=== PATIENT | female | born 1950 | race Caucasian/White ===

== ENCOUNTER 2022-11-10 07:25 | Outpatient (OUT) | payer MEDICARE, SELFPAY ==
--- NOTE | 2022-11-10 13:38 | XR_ITS ---
The [address] [address] Patient Name: CARLOS ABEL MRN: [id number] date: 1950 Sex: F Assigned Patient Location: [facility] Current Patient Location: [facility] Accession/Order Number: [id number] Exam Date: 11/10/2022 13:38 Report Date: 11/10/2022 15:28 At the request of: MICHEL LINN Procedure: XR foot LT min 3V EXAM: XR ankle LT min 3V, XR foot LT min 3V HISTORY: LEFT ANKLE PAIN COMPARISON: X-rays 10/20/2021 TECHNIQUE: 3 views of the ankle and 3 views of the foot. FINDINGS: Severe mid foot sag is again demonstrated. No acute fracture, dislocation, subluxation or osseous lesion. Stable medial angulation of the second, third, fourth and fifth digits. Joint spaces are unremarkable for patient's age. No visualized soft tissue edema or joint effusion. XR/XR foot LT min 3V IMPRESSION: No visualized acute irregularities Electronically authenticated by: HUY SHIRLEY Date: 11/10/2022 15:28
--- NOTE | 2022-11-10 13:39 | XR_ITS ---
The [address] [address] Patient Name: CARLOS ABEL MRN: [id number] date: 1950 Sex: F Assigned Patient Location: [facility] Current Patient Location: [facility] Accession/Order Number: [id number] Exam Date: 11/10/2022 13:39 Report Date: 11/10/2022 15:28 At the request of: MICHEL LINN Procedure: XR ankle LT min 3V EXAM: XR ankle LT min 3V, XR foot LT min 3V HISTORY: LEFT ANKLE PAIN COMPARISON: X-rays 10/20/2021 TECHNIQUE: 3 views of the ankle and 3 views of the foot. FINDINGS: Severe mid foot sag is again demonstrated. No acute fracture, dislocation, subluxation or osseous lesion. Stable medial angulation of the second, third, fourth and fifth digits. Joint spaces are unremarkable for patient's age. No visualized soft tissue edema or joint effusion. XR/XR ankle LT min 3V IMPRESSION: No visualized acute irregularities Electronically authenticated by: HUY SHIRLEY Date: 11/10/2022 15:28
== END 2022-11-10 07:26 ==
LOC: RAD 11-18 07:26
PROVIDERS: Visit Provider Physician Assistant
DX: M19.072 Primary osteoarthritis, left ankle and foot (principal)
CPT/HCPCS: 73610; 73630

== ENCOUNTER 2023-02-21 22:00 | Emergency (ER) | payer MEDICARE, SELFPAY ==
[2023-02-21 22:02] VITALS: BP 178/110; PULSE 98; RESP 16; TEMP 36.6; O2SAT 98; BMI 31.1
--- NOTE | 2023-02-21 22:31 | ED.WOUNDLAC1 ---
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 She was working with a feral cat that bit and scratched her right leg. she is not able to recall her last tetanus shot. States she is not concerned about rabies. states they are trapping these cats to neuter and release them. Denies other injury. No weakness or numbness of her leg Onset (ago): hour(s) Related Data Home Medications Medication Instructions Recorded Confirmed ibuprofen 800 mg tablet 800 mg PO DAILY 02/21/23 02/21/23 sertraline 50 mg tablet (Zoloft) 50 mg PO DAILY 02/21/23 02/21/23 Allergies Allergy/AdvReac Type Severity Reaction Status Date / Time No Known Drug Allergies Allergy Verified 02/21/23 22:06 Review of Systems ROS Status of ROS 10 or more systems reviewed and unremarkable except as noted in history and below PFSH PFS Social History Smoking status: Never smoker Exam Constitutional Vital Signs, click to edit/add: Last Vital Signs Temp 97.8 F 02/21/23 22:02 Pulse 98 H 02/21/23 22:02 Resp 16 02/21/23 22:02 BP 172/110 H 02/21/23 23:23 Pulse Ox 98 02/21/23 22:02 O2 Del Method Room Air 02/21/23 22:02 Common normals: no apparent distress, average body habitus, oriented x3, no limitations, healthy appearing and alert Eye Common normals: EOMs intact bilaterally and conjunctivae normal Respiratory Common normals: normal respiratory effort, no retractions and no use of accessory muscles Cardio Common normals: regular rate, regular rhythm, S1 normal heart sound and S2 normal heart sound Extremity Other: mutiple scratches RLE . Few bite casanova. One lesion length about 2cm. does bleed but does not pull apart Neuro Common normals: oriented x3, CN's II-XII intact bilaterally, moves all extremities, no focal motor deficits and no sensory deficits noted Psych Appearance: grossly normal Course Vital Signs Vital signs: Vital Signs Temperature 97.8 F 02/21/23 22:02 Pulse Rate 98 H 02/21/23 22:02 Respiratory Rate 16 02/21/23 22:02 Blood Pressure 178/110 H 02/21/23 22:02 Pulse Oximetry 98 02/21/23 22:02 Oxygen Delivery Method Room Air 02/21/23 22:02 Temperature 97.8 F 02/21/23 22:02 Pulse Rate 98 H 02/21/23 22:02 Respiratory Rate 16 02/21/23 22:02 Blood Pressure 172/110 H 02/21/23 23:23 Pulse Oximetry 98 02/21/23 22:02 Oxygen Delivery Method Room Air 02/21/23 22:02 MDM - Wound/Laceration MDM Narrative Medical decision making narrative: patient presents with multiple scratches and bite wounds RLE. None of them require repair. Steri strips applied to larger scratches. IV Unasyn administered and patient discharged home with Augmentin. Patient also given a Tetanus shot patient's BP is elevated. States use to take BP meds. She did not want treatment here for her BP but will follow up with her PCP for treatment Lab Data Labs: Lab Results 02/21/23 Range/Units 22:30 WBC 7.6 (4.0-11.0) 10^3/uL RBC 4.06 L (4.20-5.40) 10^6/uL Hgb 12.8 (12.0-16.0) g/dL Hct 39.8 (36.0-48.0) % MCV 98.0 (81.0-99.0) fL MCH 31.5 (26.7-34.0) pg MCHC 32.2 (29.9-35.2) g/dL RDW 13.0 (11.0-15.0) % Plt Count 277 (150-450) 10^3/uL MPV 9.1 L (9.5-13.5) fL Neut % (Auto) 63.7 (43.0-75.0) % Lymph % (Auto) 23.2 (20.5-60.0) % [place] % (Auto) 8.3 (1.7-12.0) % Eos % (Auto) 3.6 (0.9-7.0) % Baso % (Auto) 0.9 (0.2-2.0) % Neut # (Auto) 4.8 (1.4-6.5) 10^3/uL Lymph # (Auto) 1.8 (1.2-3.8) 10^3/uL [place] # (Auto) 0.6 (0.3-0.8) 10^3/uL Eos # (Auto) 0.3 (0.0-0.7) 10^3/uL Baso # (Auto) 0.1 (0.0-0.1) 10^3/uL Abs Immat Gran (auto) 0.02 (0.00-0.03) 10^3/uL Imm/Tot Granulo (auto) 0.3 (0.0-0.5) % Discharge Plan Discharge Chief Complaint: Wound/Laceration Clinical Impression: Cat bite of right lower leg, Hypertension Patient Disposition: Home, Self-Care Prescriptions / Home Meds: No Action ibuprofen 800 mg tablet 800 mg PO DAILY sertraline [Zoloft] 50 mg tablet 50 mg PO DAILY Instructions: Animal Bite (ED) Additional Instructions: have wound rechecked in 2-3 days Stand Alone Forms: Portal Instructions Referrals: Physician,Non-Staff, MD [Primary Care Provider] - 1 week Discharge Date/Time: 02/21/23 23:33
[2023-02-21] MEDS: ADACEL DIPH,PERTUSS(ACELL),TET VAC/PF 0.5 ML ADULT SYRINGE IM (22:37)
[2023-02-21] MEDS: AMPICILLIN SODIUM/SULBACTAM NA 3 GM in 0.9 % SODIUM CHLORIDE 100 ML IV (22:37)
--- NOTE | 2023-02-21 22:46 | PC.NURSE ---
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 pt states that she doesn't want to report the incident and isn't concerned about rabies or shots being updated. patient arrives to ED with a wash cloth duct taped to leg to help with the bleeding. when wash cloth removed bleeding is controlled and scratches and bites are well approximated. pt's wounds cleaned up with hibicleanse and water and steri strips applied to laceration. pt unsure when last tetanus shot was.
[2023-02-21 22:56] LABS: Basophils Absolute Auto 0.1 10^3/uL (0.0-0.1); Basophils Percent Auto 0.9 % (0.2-2.0); Eosinophils Absolute Auto 0.3 10^3/uL (0.0-0.7); Eosinophils Percent Auto 3.6 % (0.9-7.0); Hematocrit 39.8 % (36.0-48.0); Hemoglobin 12.8 g/dL (12.0-16.0); Immature Granulocytes Abs Auto 0.02 10^3/uL (0.00-0.03); Immature Granulocytes Pct Auto 0.3 % (0.0-0.5); Lymphocytes Absolute Auto 1.8 10^3/uL (1.2-3.8); Lymphocytes Percent Auto 23.2 % (20.5-60.0); Mean Corpuscular HGB Conc 32.2 g/dL (29.9-35.2); Mean Corpuscular Hemoglobin 31.5 pg (26.7-34.0); Mean Platelet Volume 9.1 fL (9.5-13.5); Monocytes Absolute Auto 0.6 10^3/uL (0.3-0.8); Monocytes Percent Auto 8.3 % (1.7-12.0); Neutrophils Absolute Auto 4.8 10^3/uL (1.4-6.5); Neutrophils Percent Auto 63.7 % (43.0-75.0); Platelet Count 277 10^3/uL (150-450); Red Blood Count 4.06 10^6/uL (4.20-5.40); White Blood Count 7.6 10^3/uL (4.0-11.0)
[2023-02-21 23:23] VITALS: BP 172/110
== END 2023-02-21 23:33 | disposition home or self-care (01) ==
PROVIDERS: Emergency Provider Internal Medicine
DX: S81.851A Open bite, right lower leg, initial encounter (principal); W55.01XA Bitten by cat, initial encounter; I10 Essential (primary) hypertension; Z23 Encounter for immunization; Z79.899 Other long term (current) drug therapy
CPT/HCPCS: 36415; 80048; 85025; 90471; 90715; 96365; 99284

== ENCOUNTER 2023-11-27 13:05 | Outpatient (OUT) | payer MEDICARE, SELFPAY ==
--- NOTE | 2023-11-27 07:20 | VEINCLINIC_ITS ---
Vital Signs 11/27/23 11:58 Height 5 ft 7 in Weight 81.647 kg BMI 28.2 BP 122/60 BP Location Left Brachial BP Position Sitting BP Cuff Size Adult BP Source Manual Cuff Respiration 18 Pulse 90 Pulse Source Monitor Pulse Oximetry (%) 97 Oxygen Delivery Method Room Air Comment The patient's blood pressure is elevated. Varicose Veins Patient is a 73 year old female who returns to this practice was last seen in December of 2018. At that time, she received treatment entailing EVLT of the right GSV, micorofoam chemical ablation, and bilateral leg sclerotherapy. Patient c/o multiple hemorrhagic venous episodes with much bleeding each time in the last year. Nacho Olivas MD personally performed the services described in this documentation, as scribed by Weston Olson RN in my presence and it is both accurate and complete. IWeston RN, am scribing for, and in the presence of, Dr. Nacho Rand and in the presence of the patient. thigh: bilateral (bilateral leg varicosities), knee: bilateral, calf: bilateral, ankle: bilateral and blake: bilateral aching, cramping and dull 3 1 year Worsened in recent months: Yes standing and walking analgesics (Ibuprofen 800mg), elevating extremities and compression stockings Reports muscle spasms of leg, bruising, fatigue, heaviness, restless legs and edema History of lower extremity trauma: No Superficial thrombophlebitis: No Family history of varicose veins: yes Has patient had previous lower extremity venous surgery: Yes Patient has previously received the following treatment(s) for lower extremity varicose veins: Reports vein ablation, sclerotherapy and foam therapy Does patient have a history of : no Does patient intend to have future pregnancies: no Has patient had lower extremity venous scan with relux testing: Yes Support hose used: Yes Problems walking or doing physical activity: Yes How does it affect you: often have to stop, rest, and elevate feet Do you walk much: Yes Do you stand much: Yes Bleeding signs: prolonged bleeding and excessive bruising Review of Systems ROS Narrative Nacho Olivas MD personally performed the services described in this documentation, as scribed by Weston Olson RN in my presence and it is both accurate and complete. Weston Olivas RN, am scribing for, and in the presence of, Dr. Nacho Rand and in the presence of the patient. Status of ROS 10 or more systems reviewed and unremark able except as noted in history and below Cardiovascular Reports: edema Integumentary/Breast Reports: redness, skin pain, skin tenderness, skin swelling, new lesion and changes in skin color Neurological Reports: numbness in extremities and weakness in extremities Hematologic/Lymphatic Reports: easy bruising and easy bleeding PFSH PFSH Medical History (Updated 11/27/23 @ 13:32 by Weston Olson) Cellulitis ?L03.90 - Cellulitis, unspecified (ICD-10) Left knee injury ?S89.92XA - Unspecified injury of left lower leg, initial encounter (ICD-10) Varicose veins of bilateral lower extremities with pain ?I83.813 - Varicose veins of bilateral lower extremities with pain (ICD-10) Surgical History (Updated 11/27/23 @ 13:28 by Weston Olson) Status post laser ablation of incompetent vein ?Z98.890 - Other specified postprocedural states (ICD-10) Status post sclerotherapy of varicose veins ?Z98.890 - Other specified postprocedural states (ICD-10) ?Z86.79 - Personal history of other diseases of the circulatory system (ICD- 10) History of right hip replacement ?Z96.641 - Presence of right artificial hip joint (ICD-10) Family History (Updated 11/27/23 @ 07:32 by Weston Olson) Other Family history of COPD (chronic obstructive pulmonary disease) Heart disease Varicose veins of bilateral lower extremities with pain Social History (Updated 11/27/23 @ 07:31 by Weston Olson) Within the past year, how often did you have a drink containing alcohol: 2-3 times a week Smoking status: Never smoker Non-prescribed substance use: denies use Meds Home Medications and Allergies Home Medications ?Medication ?Instructions ?Recorded ?Confirmed ?Type ibuprofen 800 mg tablet 800 mg PO DAILY 02/21/23 02/21/23 History sertraline 50 mg tablet (Zoloft) 50 mg PO DAILY 02/21/23 02/21/23 History losartan .ROUTE 11/27/23 History Allergies Allergy/AdvReac Type Severity Reaction Status Date / Time No Known Drug Allergies Allergy Verified 11/27/23 07:30 Exam Narrative Exam Narrative: Nacho Olivas MD personally performed the services described in this documentation, as scribed by Weston Olson RN in my presence and it is both accurate and complete. Weston Olivas RN, am scribing for, and in the presence of, Dr. Nacho Rand and in the presence of the patient. Constitutional Documenting provider has reviewed patient's vital signs: yes Common normals: oriented x3 Nutritional appearance: overweight Cardio Peripheral pulses: posterior tibial pulses present and dorsalis pedis pulses present Extremity Common normals: normal capillary refill General: calf tenderness and edema Right lower extremity: lower leg Right lower leg: inspection and palpation Left lower extremity: lower leg Left lower leg: inspection and palpation Other: Multiple open areas of wound noted to bilateral legs Nacho Olivas MD personally performed the services described in this documentation, as scribed by Weston Olson RN in my presence and it is both accurate and complete. Weston Olivas RN, am scribing for, and in the presence of, Dr. Nacho Rand and in the presence of the patient. Neuro Common normals: oriented x3 Results Additional Findings Additional findings: Bilateral leg reflux u/s reveals left leg great and small saphenous vein insufficiency with associated dilation along with perforating veins near open wo unds to bilateral legs. Bilateral leg branch saphenous truncal varicosities also noted. Nacho Olivas MD personally performed the services described in this documentation, as scribed by Weston Olson RN in my presence and it is both accurate and complete. Weston Olivas RN, am scribing for, and in the presence of, Dr. Nacho Rand and in the presence of the patient. Assessment and Plan Assessment and Plan (1) Hypertension: (2) Cat bite of right lower leg: (3) Varicose veins of bilateral lower extremities with pain: (4) Cellulitis: Plan Patient to return for EVLT of left GSV, SSV, and bilateral leg perforating veins near wounds. Once EVLT's are complete, move forward with microfoam chemical ablation bilateral leg branch saphenous varicose veins and lastly, sclerotherapy of bialteral leg pre-hemorrhagic, spider veins. Nacho Olivas MD personally performed the services described in this documentation, as scribed by Weston Olson RN in my presence and it is both accurate and complete. I, Weston Olson RN, am scribing for, and in the presence of, Dr. Nacho Rand and in the presence of the patient.
--- NOTE | 2023-11-27 11:57 | W.VEIN ---
Discharge Plan Discharge Disposition: Home, Self-Care Outpatient Diagnostics: VC Facility EST Comprehensive (Routine) Timeframe: 2 Weeks Facility: [facility] - Location: [facility] Ordered By: Daljit Clemens VC EXT Venous Reflux MILTON LMTD (Routine) Timeframe: 2 Weeks Facility: [facility] - Location: [facility] Ordered By: Daljit Clemens Plan of Treatment: EVLT of left GSV Print Language: Indonesian Discharge Date/Time: 11/27/23 14:45
[2023-11-27 11:58] VITALS: BP 122/60; PULSE 90; O2SAT 97; BMI 28.2
--- NOTE | 2023-11-27 13:08 | VEIN_ITS ---
Patient Name: CARLOS ABEL MR#: [id number] : 1950 Exam Date: 11/27/2023 Ordering Doctor: DR HUY HOYOS M.D. RADIOLOGY REPORT PROCEDURE: VC EXT VENOUS REFLUX MILTON LMTD COMPARISON: None. INDICATIONS: I83.813 - Varicose veins of bilateral lower extremities with pain TECHNIQUE: Duplex imaging of the lower extremity to assess the deep and superficial venous system for the presence of deep or superficial venous incompetence and to document the location and severity of disease. The study includes evaluation of the great saphenous vein (GSV), anterior accessory saphenous vein (AASV) and small saphenous vein (SSV). Patient scanned in reverse Trendelenburg and standing. FINDINGS: RIGHT LOWER EXTREMITY: Saphenofemoral Junction Reflux: Yes 8.5mm 0.8 sec GSV: Diam (mm) Reflux/ Time (sec) Proximal Thigh N/A Mid Thigh N/A Distal Thigh N/A Prox Calf 2.5 Yes 3.7 Mid Calf 3.1 Yes 1.5 Saphenopopliteal Junction Reflux: 2.2mm Yes 4.3 SSV: Proximal Calf N/A Mid Calf 4.1 Yes 2.8 AASV: Not present Proximal Thigh Mid Thigh Distal Thigh Thrombi: No acute or chronic thrombus. Compressibility: Normal. Flow: Moderate to severe deep venous reflux. Preforator: Mid medial/post calf off SSV 4.6 mm with 1.9s reflux. Dist/med lower leg 3.6 mm with 4.8s reflux. Prox/med lower leg near wound 4.8 mm, 3.3s reflux. Tech Note: Previously treated GSV and proximal segment of SSV. Thigh extention of SSV. Incompetent varicose vein distal medial thigh measures 4.9 mm with 0.6s reflux. Varicose vein proximal medial lower leg measures 5.7 mm with 2.6s reflux. Varicose vein mid lateral lower leg 4.0 mm with 4.6s reflux. LEFT LOWER EXTREMITY: Saphenofemoral Junction Reflux: Yes 10.9 mm 3.1 sec GSV: Diam (mm) Reflux/Time (sec) Proximal Thigh 5.5 Yes 3.7 Mid Thigh 4.4 Yes 0.9 Distal Thigh 3.9 Yes 1.2 Prox Calf 3.3 Yes 0.6 Mid Calf 2.6 Yes 0.7 Saphenopopliteal Junction Relux: 5.5 mm Yes 2.5 SSV: Proximal Calf 5.5 Yes 1.5 Mid Calf 5.0 Yes 0.8 AASV: Proximal Thigh 5.5 Yes 1.4 Mid Thigh 2.9 Yes 0.5 Distal Thigh Thrombi: Chronic thrombus of varicose vein mid calf off PTV. Compressibility: Partial compression of deep varicosity. Flow: Moderate deep venous reflux. Rate Marker: Distal medial lower leg 4.3 mm with 0.8s reflux. Mid medial lower leg 4.2 mm with 1.2s reflux. Tech Note: Incompetent varicose vein proximal medial lower leg measures 4.0 mm with 1.3s reflux. Varicose vein medial knee measures 4.0 mm with 0.7s reflux. CONCLUSION: 1. Abnormally dilated and incompetent left great saphenous, small saphenous, and anterior accessory saphenous veins. 2. Dilated incompetent branch saphenous varicosities bilaterally. 3. Abnormally dilated incompetent non licensed operator veins within distal lower extremities bilaterally corresponding to patient's wounds. Dictated by: Nacho Rand M.D. on 11/27/2023 at 14:18 Approved by: Nacho Rand M.D. on 11/27/2023 at 14:49
--- NOTE | 2023-11-27 13:08 | VEIN_ITS ---
Patient Name: CARLOS ABEL MR#: [id number] : 1950 Exam Date: 11/27/2023 Ordering Doctor: DR HUY HOYOS M.D. RADIOLOGY REPORT PROCEDURE: [facility] FACILITY EST [facility] - OFFICE VISIT INITIAL COMPARISON: None. PROGRESS NOTES: [age] year old female who presents with a 1 year history of dilated bulging veins, nonhealing wounds, spontaneous bleeding. The patient's right leg symptoms are worse than the left. There has been a progression of symptoms over time. This increases with prolonged leg dependency. The patient describes an improvement with rest, elevation, and analgesics. The patient denies any signs and symptoms to suggest arterial ischemia. The patient describes a family history of COPD, heart disease, and varicose veins. The patient has drinking and smoking history of occasional alcohol consumption; no tobacco use. Patient has a past medical history significant for varicose veins, cellulitis. The patient denies a history of deep venous thrombus or pulmonary embolus. See separate history and physical for medication list. Prior treatment for varicose or spider veins. Current use of compression stockings. After review of nurse notes, history and physical exam I discussed at length the pathophysiology of venous hypertension and possible treatments, therapies and strategies available. We discussed at length the importance of elevating the lower extremities above the level of the heart, increased physical activity and compression stocking use. Ultrasound venous reflux study performed today was discussed at length with the patient. The report demonstrates abnormally dilated incompetent left great saphenous, small saphenous, anterior accessory saphenous veins. The anterior accessory saphenous vein is too short to gain access adequately. Bilateral branch saphenous varicosities.. PHYSICAL EXAM: The right leg demonstrates several varicosities, multiple spider veins, multiple slow healing/nonhealing wounds or ulceration, mild edema, no skin discoloration. The left leg demonstrates several varicosities, multiple spider veins, numerous wounds, mild edema, no skin discoloration. Both thighs, legs and feet were symmetrically warm to the touch. Good posterior tibial and dorsalis pedis pulses were present bilaterally. VEIN/VC Facility EST Comprehensive IMPRESSION: 1. Bilateral lower extremity venous insufficiency 2. Bilateral lower extremity varicose veins 3. Mild bilateral lower extremity subcutaneous edema 4. No flow significant arterial disease 5. CEAP: C6, EC, AP, OK PLAN: 1. Continued use of compression stockings 2. Elevated legs and increased physical activity symptomatic relief 3. Endovenous laser ablation of left great saphenous and small saphenous veins. 4. Endovenous laser ablation of bilateral lower extremity podiatric physician veins. 5. Microfoam chemical ablation of branch saphenous varicosities bilaterally. Nurse notes, history and physical were reviewed and confirmed, see attached forms. The nurse was present throughout the physical exam and consultation Dictated by: Nacho Rand M.D. on 11/27/2023 at 14:49 Approved by: Nacho Rand M.D. on 11/27/2023 at 15:02
--- NOTE | 2023-11-27 14:42 | W.VEIN ---
Discharge Plan Discharge Disposition: Home, Self-Care Outpatient Diagnostics: VC Facility EST Comprehensive (Routine) Timeframe: 2 Weeks Facility: [facility] - Location: [facility] Center Ordered By: Daljit Clemens VC EXT Venous Reflux MILTON LMTD (Routine) Timeframe: 2 Weeks Facility: [facility] - Location: [facility] Center Ordered By: Daljit Clemens Plan of Treatment: EVLT of left GSV Print Language: Latvian Discharge Date/Time: 11/27/23 14:45
== END 2023-11-27 14:45 | disposition home or self-care (01) ==
PROVIDERS: PCP Radiology Diagnostic Radiology; Visit Provider Radiology Diagnostic Radiology
DX: I83.813 Varicose veins of bilateral lower extremities with pain (principal)
CPT/HCPCS: 93970; G0463

== ENCOUNTER 2024-01-08 13:21 | Outpatient (OUT) | payer MEDICARE, SELFPAY ==
--- NOTE | 2024-01-08 07:28 | VEINCLINIC_ITS ---
Vital Signs 01/08/24 14:12 Height 5 ft 7 in Weight 81 kg Varicose Veins Patient in this day for EVLT of left GSV. Daljit Olivas MD personally performed the services described in this documentation, as scribed by Weston Olson RN in my presence and it is both accurate and complete. Weston Olivas RN, am scribing for, and in the presence of, Dr. Daljit Clemens and in the presence of the patient. thigh: bilateral (bilateral leg varicosities), knee: bilateral, calf: bilateral, ankle: bilateral and blake: bilateral aching, cramping and dull 3 1 year Worsened in recent months: Yes standing and walking analgesics (Ibuprofen 800mg), elevating extremities and compression stockings Reports muscle spasms of leg, bruising, fatigue, heaviness, restless legs and edema History of lower extremity trauma: No Superficial thrombophlebitis: No Family history of varicose veins: yes Has patient had previous lower extremity venous surgery: Yes Patient has previously received the following treatment(s) for lower extremity varicose veins: Reports vein ablation, sclerotherapy and foam therapy Does patient have a history of : no Does patient intend to have future pregnancies: no Has patient had lower extremity venous scan with relux testing: Yes Support hose used: Yes Problems walking or doing physical activity: Yes How does it affect you: often have to stop, rest, and elevate feet Do you walk much: Yes Do you stand much: Yes Bleeding signs: prolonged bleeding and excessive bruising Review of Systems ROS Narrative Daljit Olivas MD personally performed the services described in this documentation, as scribed by Weston Olson RN in my presence and it is both accurate and complete. Weston Olivas RN, am scribing for, and in the presence of, Dr. Daljit Clemens and in the presence of the patient. Status of ROS 10 or more systems reviewed and unremark able except as noted in history and below Cardiovascular Reports: edema Integumentary/Breast Reports: redness, skin pain, skin tenderness, skin swelling, new lesion and changes in skin color Neurological Reports: numbness in extremities and weakness in extremities Hematologic/Lymphatic Reports: easy bruising and easy bleeding [facility] Medical History (Updated 11/27/23 @ 13:32 by Weston Olson) Cellulitis ?L03.90 - Cellulitis, unspecified (ICD-10) Left knee injury ?S89.92XA - Unspecified injury of left lower leg, initial encounter (ICD-10) Varicose veins of bilateral lower extremities with pain ?I83.813 - Varicose veins of bilateral lower extremities with pain (ICD-10) Surgical History (Updated 01/08/24 @ 14:26 by Weston Olson) Status post laser ablation of incompetent vein ?Z98.890 - Other specified postprocedural states (ICD-10) Status post sclerotherapy of varicose veins ?Z98.890 - Other specified postprocedural states (ICD-10) ?Z86.79 - Personal history of other diseases of the circulatory system (ICD- 10) History of right hip replacement ?Z96.641 - Presence of right artificial hip joint (ICD-10) Family History (Updated 11/27/23 @ 07:32 by Weston Olson) Other Family history of COPD (chronic obstructive pulmonary disease) Heart disease Varicose veins of bilateral lower extremities with pain Social History (Updated 11/27/23 @ 07:31 by Weston Olson) Within the past year, how often did you have a drink containing alcohol: 2-3 times a week Smoking status: Never smoker Non-prescribed substance use: denies use Meds Home Medications and Allergies Home Medications ?Medication ?Instructions ?Recorded ?Confirmed ?Type ibuprofen 800 mg tablet 800 mg PO DAILY 02/21/23 02/21/23 History sertraline 50 mg tablet (Zoloft) 50 mg PO DAILY 02/21/23 02/21/23 History losartan .ROUTE 11/27/23 History Allergies Allergy/AdvReac Type Severity Reaction Status Date / Time No Known Drug Allergies Allergy Verified 11/27/23 07:30 Exam Narrative Exam Narrative: Daljit Olivas MD personally performed the services described in this documentation, as scribed by Weston Olson RN in my presence and it is both accurate and complete. IWeston RN, am scribing for, and in the presence of, Dr. Daljit Clemens and in the presence of the patient. Constitutional Documenting provider has reviewed patient's vital signs: yes Common normals: oriented x3 Nutritional appearance: overweight Cardio Peripheral pulses: posterior tibial pulses present and dorsalis pedis pulses present Extremity Common normals: normal capillary refill General: calf tenderness and edema Right lower extremity: lower leg Right lower leg: inspection and palpation Left lower extremity: lower leg Left lower leg: inspection and palpation Other: Multiple open areas of wound noted to bilateral legs Nacho Olivas MD personally performed the services described in this documentation, as scribed by Weston Olson RN in my presence and it is both accurate and complete. I, Weston Olson RN, am scribing for, and in the presence of, Dr. Ncaho Rand and in the presence of the patient. Neuro Common normals: oriented x3 Assessment and Plan Assessment and Plan (1) Varicose veins of bilateral lower extremities with pain: Plan f/u evaluation along with left leg limited u/s following EVLT of left GSV IDaljit MD personally performed the services described in this documentation, as scribed by Weston Olson RN in my presence and it is both accurate and complete. I, Weston Olson RN, am scribing for, and in the presence of, Dr. Daljit Clemens and in the presence of the patient. Procedures Procedure Instructions Procedures Plan of care: Risks and benefits of the procedure were discussed at length and informed written consent was obtained.? Time-out completed for verification of correct patient, procedure and site.? Staff present during time-out: Weston Olson RN,? Daljit Clemens MD, Daphney Ferrer [facility] Time Out Time__1421 Patient prepped and procedure performed in usual sterile fashion. Risk of injury related to use of Diode laser and/or laser devices?__CR___ ? Serial number of laser used :? [id number] Control panel self test performed, electrical cords in good condition, floor is dry, basin of water available, fire extinguisher in close proximity_CR__ Polycarbonate goggles available and Laser warning signs outside of doors___CR__ Eye protection provided to patient and staff in room_CR___ Use of laser retardant drapes and dull blackened instruments as directed__CR___ Use of nonflammable prep solutions and use of saline soaked sponges to protect tissues as indicated _CR___ Length __38 cm Laser operated by _Dr. Clemens Physician verbal confirmation laser locked in place__CR__ Laser start time (date and time) _01/08/2024@___1431 Laser stop time(date and time) __01/08/2024@___1435 Roberts _8.0___ Average laser use __1819 Joules Average laser use__227 seconds Pulse continuous ___CR_? Pulse intermittent ___ Amount of Tumescent used __200 cc____ Evaluated patient for signs and symptoms of electrical injury __CR___ ? Skin clear at insertion site __CR___ Patient tolerated procedure well.? Left leg Coban dressing applied to access site.? Applied Left thigh high leg compression stocking. Will return on // for Left leg limited venous ultrasound and exam.
--- NOTE | 2024-01-08 07:33 | W.VEIN ---
Discharge Plan Discharge Disposition: Home, Self-Care Outpatient Diagnostics: VC Facility EST LMTD (Routine) Timeframe: 2 Weeks Facility: [facility] - Location: Vein Center Ordered By: Daljit Clemens VC EXT Venous LT Limited (Routine) Timeframe: 2 Weeks Facility: [facility] - Location: Vein Center Ordered By: Daljit Clemens Follow Up Appointments: 01/15/2024 Plan of Treatment: f/u evaluation along with left leg limited u/s Patient Instructions: Endovenous Ablation (DC) Print Language: Swazi Discharge Date/Time: 01/08/24 14:23
--- NOTE | 2024-01-08 13:29 | VEIN_ITS ---
[address] [address] Patient Name: CARLOS ABEL MRN: [id number] date: 1950 Sex: F Assigned Patient Location: Current Patient Location: Accession/Order Number: [id number] Exam Date: 01/08/2024 13:35 Report Date: 01/08/2024 14:57 At the request of: HUY HOYOS Procedure: VC Endovenous Ablation 1VeinLT EXAMINATION: VC Endovenous Ablation 1Vein left great saphenous vein HISTORY: I83.813 Bilateral leg painful varicose veins COMPARISON: No relevant comparison available. TECHNIQUE: The risks and benefits of the procedure had been previously discussed, and were rediscussed at length. Informed written consent was obtained. Mary Santiago and Daphney Ferrer assisted. Time out procedure was performed. The left lower extremity was prepared and draped in the usual sterile fashion to allow knee flexion in the sterile field. Duplex ultrasound probe was draped in a sterile cover, sterile transmission gel was used. Venous mapping was performed with the areas of dilation and large tributaries marked. The total length was 38 cm from the entry mid lower leg to 3 cm below the saphenofemoral junction. The diameter of the greater saphenous vein ranged from 4-6 mm. A 30 gauge needle and 1% buffered lidocaine was used to anesthetize the entry site. A 4 mm incision was made with a scalpel and the saphenous vein was entered percutaneously under direct ultrasound guidance with a micropuncture set, a single stick was successful in gaining access. A micro-guide wire was inserted and the needle removed. A micro-set including a dilator was inserted over the microwire and the needle and dilator were removed. A 0.018 guide wire was inserted through the micro-set and threaded through the saphenous vein to the saphenofemoral junction. The dilator was removed and an introducer sheath was inserted over the wire until the end of the sheath entered the saphenofemoral junction. The dilator and wire were removed and the 600 micron fiber was introduced and placed and positioned so that it extended beyond the sheath and was 3 cm peripheral to the saphenofemoral femoral junction. Final position of the fiber was determined by ultrasound guidance and duplex imaging. Tumescent anesthetic was delivered by ultrasound guidance. 200 cc of fluid was delivered along the entire course of the saphenous vein. The solution consisted of 1000 cc of normal saline with 40 mL of 1% lidocaine and 20 mL of sodium bicarbonate. A final positioning check was made. The energy source was turned on by means of the foot pedal and the fiber and sheath were withdrawn. The total number of Joules delivered was 1819. The laser was active for 227seconds under continuous pulse, average laser use of 8 J. Laser start time 2:31 AM 01/08/2024 . Laser stop time 2:35 AM 01/08/2024 . A duplex ultrasound revealed compressibility and flow at the saphenofemoral junction immediately after the procedure. Hemostasis at the access site was achieved. The skin incision of the saphenous vein was closed with a 4 x 4. A compression stocking was applied. Postop instructions were given. A follow up appointment was recommended and scheduled. The patient tolerated the procedure well and was discharged in good condition . VEIN/VC Endovenous Ablation 1VeinLT IMPRESSION: Technically successful endovenous laser ablation of the left great saphenous vein Electronically authenticated by: HUY HOYOS Date: 01/08/2024 14:57
[2024-01-08] MEDS: LIDOCAINE HCL 1% 100 MG/10 ML MDV INJ (13:30)
[2024-01-08] MEDS: 0.9 % SODIUM CHLORIDE 500 ML, LIDOCAINE HCL 20 ML, SODIUM BICARBONATE 10 MEQ INJ (13:31)
--- OUTSIDE RECORDS SUMMARY | 2024-01-08 13:45 | XMS_ITS | CCD ---
Author Organization [facility] ion [facility] Care Team Providers Care Black Pickler Name Role Phone MECHELLE WOMACK Admitting Unavailable SHANTA, MECHELLE Overton Attending Unavailable HIESTAND, DR JONNY Pro Primary Care Unavailable Dariusebclaire, DR Griffith Consulting Unavailable HIGHLANDER, MECHELLE Overton Consulting Unavailable HIESTAND, DR JONNY Pro Admitting Unavailable HIESTAND, DR JONNY Pro Attending Unavailable HIESTAND, DR JONNY Pro Primary Care Unavailable HIESTAND, DR JONNY Pro Consulting Unavailable HIESTAND, DR JONNY Pro Admitting Unavailable HIESTAND, DR JONNY Pro Attending Unavailable HIESTAND, DR JONNY Pro Primary Care Unavailable HIESTAND, DR JONNY Pro Consulting Unavailable HIESTAND, DR JONNY Pro Primary Care Unavailable DAVE MEJÍA Admitting Unavailable ALFONZO, DAVE Attending Unavailable BLANQUITA KING Consulting Unavailable ALFONZO, DAVE Consulting Unavailable KLYMCADEN Consulting Unavailable GRILLIS, DR SAMANTHA Stovall Admitting Unavailabl e EUFEMIA, DR SAMANTHA Stovall Attending Unavailabl e HIESTAND, DR JONNY Pro Primary Care Unavailable EUFEMIA, DR SAMANTHA Stovall Consulting Unavailabl MECHELLE Coyne Admitting Unavailable MECHELLE WOMACK Attending Unavailable HIESTAND, DR JONNY Pro Primary Care Unavailable MECHELLE WOMACK Admitting Unavailable MECHELLE WOMACK Attending Unavailable HIESTAND, DR JONNY Pro Primary Care Unavailable EUFEMIA, DR SAMANTHA Stovall Admitting Unavailabl e EUFEMIA, DR SAMANTHA Stovall Attending Unavailabl e HIESTAND, DR JONNY Pro Primary Care Unavailable EUFEMIA, DR SAMANTHA Stovall Consulting Unavailabl e GUI ORDONEZ Consulting Unavailable MECHELLE WOMACK Admitting Unavailable MECHELLE WOMACK Attending Unavailable HIESTAND, DR JONNY Pro Primary Care Unavailable BrayanestJonny Gerard Primary Care Provider TALIB GUTIERRES Attending Unavailable TALIB GUTIERRES Referring Unavailable TEN GREENE Attending Unavailable TEN GREENE Attending Unavailable TEN GREENE Attending Unavailable JONNY JEFFRIES Attending Unavailable JONNY JEFFRIES Referring Unavailable JONNY JEFFRIES Primary Care Unavailable JONNY JEFFRIES Attending Unavailable JONNY JEFFRIES Referring Unavailable JONNY JEFFRIES Primary Care Unavailable Allergies Allergy Classification Reported Allergen(s) Allergy Type Date of Onset Reaction(s) Facility (1 source) bee venom Drug allergy (disorder) [facility] Repository Medications Current Medications Medication Drug Class(es) Dates Sig (Normalized) Sig (Original) ibuprofen 800 mg oral tablet (3 sources) Nonsteroidal Anti-inflammatory Drug Start: 02-24-2023 End: 05-08-2023 take 1 tablet by mouth every eight hours as needed for pain ibuprofen (MOTRIN) 800 mg tablet Take 1 tablet (800 mg total) by mouth every 8 (eight) hours as needed for pain. 90 tablet 2 05/08/2023 Active losartan potassium 50 mg oral tablet (1 source) Angiotensin 2 Receptor Campos Start: 05-08-2023 take 1 tablet by mouth in the morning losartan (COZAAR) 50 mg tablet Indications: Primary hypertension Take 1 tablet (50 mg total) by mouth in the morning. 90 tablet 1 05/08/2023 Active multivit-min/ferr ous fumarate (MULTI VITAMIN ORAL) (2 sources) multivit-min/augustus ro us fumarate (MULTI VITAMIN ORAL) Take by mouth daily. 0 Active sertraline 50 mg oral tablet (2 sources) Serotonin Reuptake Inhibitor Start: 04-02-2020 take 1 tablet by mouth once daily sertraline (ZOLOFT) 50 mg tablet Take 1 tablet (50 mg total) by mouth daily. 90 tablet 0 04/02/2020 Active zolpidem tartrate 10 mg oral tablet (1 source) gamma-Aminobutyric Acid-ergic Agonist Start: 04-27-2023 take 1 tablet by mouth once daily as needed for sleep zolpidem (AMBIEN) 10 mg tablet Indications: Insomnia, unspecified type Take 1 tablet (10 mg total) by mouth nightly as needed for sleep. 10 tablet 0 04/27/2023 Active Problems Active Problems Problem Classification Problem Date Documented Date Episodic/Chronic Coagulation and hemorrhagic disorders (1 source) Spontaneous ecchymoses; Translations: [Spontaneous ecchymoses] Onset: 11-06-2023 Episodic Disorders of lipid metabolism (1 source) Mixed hyperlipidemia; Translations: [MIXED HYPERLIPIDEMIA] Onset: 01-12-2022 Chronic Diverticulosis and diverticulitis (1 source) Diverticulosis of large intestine without perforation or abscess without bleeding; Translations: [DVRTCLOS LG INT NO PERF/ABSC W/O BL] Onset: 05-24-2021 Chronic Esophageal disorders (1 source) Gastro-esophageal reflux disease without esophagitis; Translations: [GERD WITHOUT ESOPHAGITIS] Onset: 04-29-2021 Chronic Essential hypertension (10 sources) Essential (primary) hypertension; Translations: [Hypertensive disorder] Onset: 10-01-2020 Chronic Gastritis and duodenitis (1 source) Unspecified chronic gastritis without bleeding; Translations: [UNS CHRONIC GASTRITIS W/O BLEEDING] Onset: 05-24-2021 Chronic Mood disorders (2 sources) Depressive disorder; Translations: [Depression] 10-01-2020 Chronic Other connective tissue disease (1 source) Presence of right artificial hip joint; Translations: [PRESENCE RIGHT ARTIFICIAL HIP JOINT] Onset: 05-24-2021 Chronic Other nutritional; endocrine; and metabolic disorders (1 source) Obesity, unspecified; Translations: [OBESITY UNSPECIFIED] Onset: 05-24-2021 Chronic Other nutritional; endocrine; and metabolic disorders (1 source) Body mass index (BMI) 33.0-33.9, adult; Translations: [BODY MASS INDEX BMI 33.0-33.9 ADULT] Onset: 05-24-2021 Chronic Residual codes; unclassified (1 source) Obstructive sleep apnea (adult) (pediatric); Translations: [OBSTRUCTIVE SLEEP APNEA] Onset: 05-24-2021 Chronic Residual codes; unclassified (1 source) Sleep apnea, unspecified; Translations: [SLEEP APNEA UNSPECIFIED] Onset: 04-29-2021 Chronic Residual codes; unclassified (2 sources) Obstructive sleep apnea syndrome; Translations: [Obstructive sleep apnea (adult) (pediatric)] 10-01-2020 Chronic Residual codes; unclassified (5 sources) Donor of unspecified organ or tissue; Translations: [DONOR UNSPECIFIED ORGAN OR TISSUE] Onset: 01-11-2022 Episodic Unclassified (1 source) ESOPHAGITIS UNSPEC WITHOUT BLEEDING; Translations: [ESOPHAGITIS UNSPEC WITHOUT BLEEDING] Onset: 05-24-2021 Unclassified (1 source) CONTACT W/AND (SUSP) EXPOS COVID-19; Translations: [CONTACT W/AND (SUSP) EXPOS COVID-19] Onset: 05-19-2021 Unclassified (1 source) Bleeding/Bruising Onset: 11-06-2023 Past or Other Problems Problem Classification Problem Date Documented Da te Episodic/Chronic Mood disorders (2 sources) Mood disorders Onset: 12-23-2022 12-23-2022 Other aftercare (1 source) Other aluminum siding mechanic (current) 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 therapy; Translations: [OTH SENIOR CARE CURRENT DRUG THERAPY] Onset: 05-24-2021 Episodic Other and unspecified benign neoplasm (1 source) Polyp of colon; Translations: [POLYP OF COLON] Onset: 05-24-2021 Episodic Other connective tissue disease (1 source) Pain in right foot; Translations: [PAIN IN RIGHT FOOT] Onset: 10-22-2021 Episodic Other connective tissue disease (1 source) Pain in left foot; Translations: [PAIN IN LEFT FOOT] Onset: 10-22-2021 Episodic Other connective tissue disease (3 sources) Pain in right leg; Translations: [PAIN IN RIGHT LEG] Onset: 03-06-2021 Episodic Other gastrointestinal disorders (4 sources) Other fecal abnormalities; Translations: [OTHER FECAL ABNORMALITIES] Onset: 05-19-2021 Episodic Other non-traumatic joint disorders (4 sources) Pain in right ankle and joints of right foot; Translations: [PAIN IN RIGHT ANKLE] Onset: 10-20-2021 Episodic Other non-traumatic joint disorders (1 source) Pain in left ankle and joints of left foot; Translations: [PAIN IN LEFT ANKLE] Onset: 10-22-2021 Episodic Skin and subcutaneous tissue infections (1 source) Cellulitis of right lower limb; Translations: [CELLULITIS OF RIGHT LOWER LIMB] Onset: 04-29-2021 Episodic Results Test Name Value Interpretation Reference Range Facil ity 36on 01-12-2022 36 Coordinator carle d with the patient her use of Nsaid, Meloxicam, and the potential of it hurting her remaining kidney should she be considered as a donor. Coordinator explained that our center would ask that she is not on an nsaid and that she avoids taking them and if that is something she is not able to do and maintain her health then she would not be a good candidate for donation. Patient agreed that she would first find out her blood type to see if her blood type is a match and then seek her PCP guidance on discontinuing Nsaid use for pain control. Normal [facility] ABO AND RH TYPEon 01-11-2022 ABO and Rh group Nom (Bld) ABO Rh Typing B Rh Positive Normal [facility] Comment on above: Performed By: #### A JANELLE #### [facility] [address] [address] [address] Rufino Thomas LIPID PROFILEon 01-11-2022 CHOL-HDL RATIO NORM SEE BELOW Normal [facility] Comment on above: Result Comment: 3.3 - 4.4 LOW RISK 4.4 - 7.1 AVERAGE RISK 7.1 - 11.0 MODERATE RISK >11.0 HIGH RISK Performed By: #### L IPID, CMP #### [facility] [address] [address] [address] Rufino Thomas Cholesterol [Mass/Vol] 227 mg/dL Critically high <=200 [facility] Comment on above: Performed By: #### L IPID, CMP #### [facility] [address] [address] [address] Rufino Thomas Cholesterol in HDL [Mass/Vol] 63 mg/dL Critically high 40-60 [facility] Comment on above: Performed By: #### L IPID, CMP #### [facility] [address] [address] [address] Rufino Thomas Cholesterol in LDL [Mass/Vol] 151.4 mg/dL Normal [facility] Comment on above: Performed By: #### L IPID, CMP #### [facility] [address] [address] [address] Rufino Thomas Cholesterol.total/ Cholesterol in HDL [Mass ratio] 3.6 {ratio} Normal [facility] Comment on above: Performed By: #### L IPID, CMP #### [facility] [address] [address] [address] Rufino Thomas HDL NORMAL > or = 60 mg/dl - LO W CARDIOVASCULAR RISK <40 mg/dl - HIGH CARDIOVASCULAR RISK Normal [facility] Comment on above: Performed By: #### L IPID, CMP #### [facility] [address] [address] [address] Rufino Thomas LDL CALC NORMAL SEE BELOW Normal [facility] Comment on above: Result Comment: <100 mg/dl OPTIMAL 100 - 129 mg/dl NEAR OR ABOVE OPTIMAL 130 - 159 mg/dl BORDERLINE HIGH 160 - 189 mg/dl HIGH >190 mg/dl VERY HIGH Performed By: #### L IPID, CMP #### [facility] [address] [address] [address] Rufino Thomas Triglyceride [Mass/Vol] 63 mg/dL Normal <=150 [facility] Comment on above: Performed By: #### L IPID, CMP #### [facility] [address] [address] [address] Rufino Thomas VLDL CALC 12.6 mg/dL Normal [facility] Comment on above: Performed By: #### L IPID, CMP #### [facility] [address] [place] [address] Dr. Rufino Thomas PROF 14(COMP METB)on 022 Albumin [Mass/Vol] 3.4 g/dL Normal 3.4-5.0 [facility] Comment on above: Performed By: #### L IPID, CMP #### [facility] [address] [place] [address] Dr. Rufino Thomas Albumin/Globulin [Mass ratio] 0.9 {ratio} Normal [facility] Comment on above: Performed By: #### L IPID, CMP #### [facility] [address] [address] [address] Rufino Thomas ALP [Catalytic activity/Vol] 61 U/L Normal 46-116 [facility] Comment on above: Performed By: #### L IPID, CMP #### [facility] [address] [place] [address] Dr. Rufino Thomas ALT [Catalytic activity/Vol] 41 U/L Normal 14-59 [facility] Comment on above: Performed By: #### L IPID, CMP #### [facility] [address] [place] [address] Dr. Rufino Thomas Anion gap [Moles/Vol] 9.9 mmol/L Normal [facility] Comment on above: Performed By: #### L IPID, CMP #### [facility] [address] [place] [address] Dr. Rufino Thomas AST [Catalytic activity/Vol] 30 U/L Normal 15-37 [facility] Comment on above: Performed By: #### L IPID, CMP #### [facility] [address] [place] [address] Dr. Rufino Thomas Bilirubin [Mass/Vol] 0.4 mg/dL Normal 0.2-1.0 [facility] Comment on above: Performed By: #### L IPID, CMP #### [facility] [address] [place] [address] Dr. Rufino Thomas Calcium [Mass/Vol] 8.8 mg/dL Normal 8.5-10.1 [facility] Comment on above: Performed By: #### L IPID, CMP #### [facility] [address] [place] [address] Dr. Rufino Thomas Chloride [Moles/Vol] 106 mmol/L Normal 98-107 [facility] Comment on above: Performed By: #### L IPID, CMP #### [facility] [address] [place] [address] Dr. Rufino Thomas CO2 [Moles/Vol] 27.3 mmol/L Normal 21.0-32.0 [facility] Comment on above: Performed By: #### L IPID, CMP #### [facility] [address] [place] [address] Dr. Rufino Thomas Creatinine [Mass/Vol] 0.71 mg/dL Normal 0.55-1.02 [facility] Comment on above: Performed By: #### L IPID, CMP #### [facility] [address] [place] [address] Dr. Rufino Thomas EGFR-AF SOU[place]OREAN >60 Normal >=60 [facility] Comment on above: Performed By: #### L IPID, CMP #### [facility] [address] [place] [address] Dr. Rufino Thomas EGFR-NON AF [place] >60 Normal >=60 [facility] Comment on above: Performed By: #### L IPID, CMP #### [facility] [address] [place] [address] Dr. Rufino Thomas Globulin (S) [Mass/Vol] 3.9 g/dL Normal [facility] Comment on above: Performed By: #### L IPID, CMP #### [facility] [address] [place] [address] Dr. Rufino Thomas Glucose [Mass/Vol] 95 mg/dL Normal 74-106 [facility] Comment on above: Performed By: #### L IPID, CMP #### [facility] [address] [place] [address] Dr. Rufino Thomas Potassium [Moles/Vol] 4.2 mmol/L Normal 3.5-5.1 [facility] Comment on above: Performed By: #### L IPID, CMP #### [facility] [address] [place] [address] Dr. Rufino Thomas Protein [Mass/Vol] 7.3 g/dL Normal 6.4-8.2 [facility] Comment on above: Performed By: #### L IPID, CMP #### [facility] [address] [place] [address] Dr. Rufino Thomas Sodium [Moles/Vol] 139 mmol/L Normal 136-145 [facility] Comment on above: Performed By: #### L IPID, CMP #### [facility] [address] [place] [address] Dr. Rufino Thomas Urea nitrogen [Mass/Vol] 16.0 mg/dL Normal 7.0-18.0 [facility] Comment on above: Performed By: #### L IPID, CMP #### [facility] [address] [place] [address] Dr. Rufino Thomas Urea nitrogen/Creatinin e [Mass ratio] 22.5 mg/mg Normal [facility] Comment on above: Performed By: #### L IPID, CMP #### [facility] [address] [place] [address] Dr. Rufino Thomas XR ANKLE MILTON MIN 3 VIEWSon 0 10-20-2021 XR ANKLE MILTON MIN 3 VIEWS EXAMINATION: XR ANKLE MILTON MIN 3 VIEWS, XR FOOT MILTON MIN 3 VIEWS HISTORY: Bilateral ankle joint pain , bilateral hammertoe, medial ankle pain, no known injury COMPARISON: No relevant comparison available. FINDINGS: FINDINGS: BONES: Significant medial deviation of the second through fifth toes bilaterally. Moderate loss of plantar arch bilaterally. No fracture, dislocation, or bone lesion. Unremarkable ankle joints. SOFT TISSUES: No visible soft tissue swelling. OTHER: Negative. IMPRESSION: 1. Prominent medial deviation of the second through fifth toes bilaterally consistent with patient history. 2. Pes planus bilaterally. 3. Unremarkable ankle joints. 4. No acute bone abnormality. Electronically authenticated by: SILVIA MOJICA Date: 2021-10-20 17:48 Normal [facility] H PYLORI TISSUEon 05-19-2021 H PYL TISSUE, UREASE Negative Normal NEGATIVE [facility] Comment on above: Performed By: #### H PYLT #### [facility] [address] [address] [address] Rufino Thomas Covid-19 PCR (CVDTB)on 05-01 SARS-CoV-2 (COVID-19) RNA GIOVANNY+probe Ql (Unsp spec) Not detected Normal NOT DETECTED [facility] Comment on above: Result Comment: This test is not yet approved or cleared by the [place] FDA. When there are no FDA-approved or cleared tests available, and other criteria are met, FDA can make tests available under an emergency access mechanism called an Emergency Use Authorization (EUA). The EUA for this test is supported by the [employer] of Health and Human Service's (HHS's) declaration that circumstances exist to justify the emergency use of in vitro diagnostics for the detection and/or diagnosis of the virus that causes COVID-19. This EUA will remain in effect (meaning this test can be used) for the duration of the COVID-19 declaration justifying emergency of IVDs, unless it is terminated or revoked by FDA (after which the test may no longer be used). When diagnostic testing is negative, the possibility of a false negative should be considered in the context of a patient's recent exposures and the presence of clinical signs and symptoms consistent with SARS-CoV-2. Performed By: #### C VDTB #### [facility] [address] [place] [id number] [address] Rufino Thmoas Covid-19 PCR ([facility])on SARS-CoV-2 (COVID-19) RNA GIOVANNY+probe Ql (Unsp spec) Not detected Normal NOT DETECTED [facility] Comment on above: Result Comment: This test is not yet approved or cleared by the [place] FDA. When there are no FDA-approved or cleared tests available, and other criteria are met, FDA can make tests available under an emergency access mechanism called an Emergency Use Authorization (EUA). The EUA for this test is supported by the [place] of Health and Human Service's (HHS's) declaration that circumstances exist to justify the emergency use of in vitro diagnostics for the detection and/or diagnosis of the virus that causes COVID-19. This EUA will remain in effect (meaning this test can be used) for the duration of the COVID-19 declaration justifying emergency of IVDs, unless it is terminated or revoked by FDA (after which the test may no longer be used). When diagnostic testing is negative, the possibility of a false negative should be considered in the context of a patient's recent exposures and the presence of clinical signs and symptoms consistent with SARS-CoV-2. Performed By: #### C VDTB #### [facility] [address] [place] [id number] [address] Rufino Thomas US ARNAV DOP LEG RTon 03-06-20 21 US ARNAV DOP LEG RT ULTRASOUND RIGHT LOWER EXTREMITY COLOR VENOUS DUPLEX HISTORY: Swelling. COMPARISON: None. PROCEDURE: Duplex ultrasound and Doppler images were obtained of the right lower extremity. Venous duplex examination performed using B-mode, color flow and spectral analysis. FINDINGS: There is normal color flow and compressibility seen in the visualized deep venous structures of the right lower extremity with no evidence for thrombosis seen. The profundus and saphenous veins are patent. There are normal venous Doppler waveforms. There are reactive right groin lymph nodes. IMPRESSION: No evidence for DVT. Electronically authenticated by: BLANQUITA KING Date: 2021-03-06 14:58 Normal [facility] XR KNEE RT 4V or >on 11-06-2 021 XR KNEE RT 4V or > RIGHT KNEE FOUR VIEWS: 03/06/2021 1:44 PM EDT Clinical Data: Pain. No injury Comparison: No previous No evidence of acute fracture or dislocation. [place] thin probable chronic lucencies proximal tibial shaft are relatively well-defined No joint effusion. Infrapatellar fat is preserved. There is some soft tissue density prominence overlying the patella IMPRESSION: 1. Some soft tissue density prominence overlying the patella. Clinical correlation is needed. 2. No evidence of acute fracture or dislocation Electronically authenticated by: CADEN JEWELL Date: 2021-03-06 14:56 Normal [facility] Vital Signs Date Time Vital Sign Value Performing Clinician Faci lity 05-08-2023 14:32-0500 Diastolic blood pressure 106 mm[Hg] Jonny Jeffries MD Work Phone: [facility] 05-08-2023 14:32-0500 Heart rate 88 /min Jonny Jeffries MD Work Phone: [facility] 05-08-2023 14:32-0500 Systolic blood pressure 173 mm[Hg] Jonny Jeffries MD Work Phone: [facility] Encounters Encounter Date Encounter Type Care Provider Facility Start: 11-06-2023 End: 11-06-2023 ambulatory [facility] Start: 10-30-2023 End: 10-30-2023 ambulatory TEN S DANIELHER Not Available Start: 09-20-2023 End: 09-20-2023 ambulatory TEN S RUSHER Not Available Start: 09-05-2023 End: 09-05-2023 ambulatory TEN S RUSHER Not Available Start: 07-18-2023 End: 07-18-2023 ambulatory TALIB GUTIERRES Not Available Start: 05-08-2023 End: 05-08-2023 ambulatory [facility] Start: 05-08-2023 End: 05-08-2023 Office outpatient visit 15 minutes Jonyn Jeffries MD Work Phone: [facility] Comment on above: Primary hypertension (Primary Dx) Start: 04-25-2023 Telephone encounter Jonny oliva MD Work Phone: [facility] Start: 01-11-2022 End: 01-12-[address] JONNY JEFFRIES Facility:[facility] Start: 10-20-2021 End: 10-21-2021 ambulatory MECHELLE WOMACK Facility:[facility] Start: 05-19-2021 Encounter for preprocedural laboratory examination DR SAMANTHA FALL [facility] Start: 05-19-2021 End: 05-19-[address] SAMANTHA FALL Facility:[facility] Start: 05-15-2021 End: 05-16-[address] SAMANTHA FALL Facility:[facility] Start: 05-15-2021 End: 05-16-2021 Encounter for preprocedural laboratory examination DR SAMANTHA FALL Facility:[facility] Start: 03-29-2021 ambulatory MECHELLE WOMACK Faci lity:[facility] Start: 03-24-2021 ambulatory MECHELLE WOMACK Faci lity:[facility] Start: 03-22-2021 ambulatory MECHELLE WOMACK Faci lity:[facility] Start: 03-06-2021 End: 03-06-[address] JONNY JEFFRIES Facility:[facility] Procedures Date Procedure Procedure Detail Performing Clinician Start: 12-23-2022 Adult depression scr eening assessment Jonny Jeffries MD Work Phone: Start: 05-19-2021 Colonoscopy Jonny Hoyos Work Phone: Start: 12-24-2020 Mammography Jonny Hoyos Work Phone: Plan of Treatment Date Care Activity Detail Author Start: 09-20-2028 DTaP,Tdap and Td Vaccines (2 - Td or Tdap) DTaP,Tdap and Td Vaccines (2 - Td or Tdap) [facility] Start: 05-19-2026 Screening for malignant neoplasm of colon Colonoscopy [facility] Start: 03-10-2024 Tobacco Screening Tobacco Screening [facility] Start: 12-24-2023 Depression Screening Depression Screening [facility] Start: 12-24-2023 Fall Risk Screening Fall Risk Screening [facility] Start: 12-24-2023 Medicare Annual Wellness Visit Medicare Annual Wellness Visit [facility] Start: 12-30-2022 COVID-19 Vaccine ( season) COVID-19 Vaccine ( season) [facility] Start: 12-30-2022 Influenza vaccination Influenza Vaccine [facility] Start: 11-26-2022 Adult BMI Screening Adult BMI Screening [facility] Start: 12-24-2021 Screening for malignant neoplasm of breast Mammogram [facility] Start: 2002 Administration of varicella zoster vaccine Zoster (Shingles) Vaccine (1 of 2) [facility] Immunizations Immunization Date Immunization Notes Care Provider Fa cility 07-11-2020 COVID-19, mRNA, LNP- S, PF, 30mcg/0.3mL Dose Jonny Jeffries MD Work Phone: [facility] 06-20-2020 COVID-19, mRNA, LNP- S, PF, 30mcg/0.3mL Dose Jonny Jeffries MD Work Phone: [facility] 09-20-2018 tetanus toxoid, redu luca diphtheria toxoid, and acellular pertussis vaccine, adsorbed Jonny Jeffries MD Work Phone: [facility] Payers Date Payer Category Payer Medicare [id number] 2019 Private Health Insurance [facility] AAR SUPPLEMENT [id number] 2019-Present [phone] [address] [place] [address] [id number] 2017 Medicare [id number] 1959 Medicare [id number] 1959 Unknown [id number] 1952 Unknown [id number] [id number] .593 1952 Unknown [id number] 2.16.840.1.641722.3.579.2 .593 1952 Unknown [id number] 2.16.840.1.632224.3.579.2 .593 1952 Unknown [id number] 2.16.840.1.022760.3.579.2 .593 1952 Unknown [id number] 2.16.840.1.914925.3.579.2 .593 1952 Unknown [id number] 2.16.840.1.084049.3.579.2 .593 1952 Unknown [id number] 2.16.840.1.152230.3.579.2 .593 1952 Unknown [id number] 2.16.840.1.911366.3.579.2 .593 1952 Unknown [id number] 2.16.840.1.064133.3.579.2 .593 1952 Unknown [id number] 2.16.840.1.609919.3.579.2 .1259 1952 Unknown [id number] 2.16.840.1.438646.3.579.2 .1259 1952 Unknown [id number] 2.16.840.1.163790.3.579.2 .1259 1952 Unknown [id number] 2.16.840.1.068411.3.579.2 .1259 1952 Unknown [id number] 2.16.840.1.180410.3.579.2 .1259 1952 Unknown [id number] 2.16.840.1.663374.3.579.2 .1286 1950 Unknown [id number] 2.16.840.1.848388.3.579.2 .1286 Social History Date Type Detail Facility Start: 12-23-2022 Tobacco smoking stat [facility] Never smoked tobacco [facility] Start: 12-23-2022 Tobacco use and exposure Smoke less tobacco [facility] Start: 03-10-2023 End: 05-08-2023 Alcohol intake Current drinker of alcohol (finding) [facility] Start: 10-05-2021 End: 03-10-2023 Alcohol intake [facility] Start: 10-05-2021 End: 12-23-2022 Social connection and isolation panel [facility] Do you belong to any clubs or organizations such as judaism groups, unions, fraternal or athletic groups, or school groups? No [facility] Attends Club or Organization Meetings Not on file [facility] Are you now , , , , never or living with a partner? Never [facility] How often to you hav e a drink containing alcohol? 4 or more times a week [facility] How many standard dr inks containing alcohol do you have on a typical day? 1 or 2 [facility] How often do you hav e 6 or more drinks on 1 occasion? Never [facility] How hard is it for y ou to pay for the very basics like food, housing, medical care, and heating Somewhat hard [facility] Do you feel stress - tense, restless, nervous, or anxious, or unable to sleep at night because your mind is troubled all the time - these days [OSQ] Very much [facility] Start: 10-05-2021 Education 19 [facility] Start: 09-09-2020 Alcohol Comment alot weekly [facility] Start: 1950 Sex Assigned At Not on file [facility] History of Present illness Narrative 05-08-2023 Jonny Jeffries MD - 05/08/2023 2:30 PM EST Note Date & Type Note Facility 05-08-2023 History of Presen t illness Narrative Subjective Patient ID: Carlos De La Torre is a 72 y.o. female. She has a history of hypertension. She went off of her blood pressure medication and on initial serial checks her blood pressure was not elevated so she stayed off of her blood pressure medication. She has been having tension type headaches some of which she attributes to working. She is making some life changes and maybe retiring. Heart disease runs in her family but she has not had known heart disease and has no chest pain. No edema. No lateralizing neurological symptoms with her headaches. The following portions of the patient's history were reviewed and updated as appropriate: allergies, current medications, past family history, past medical history, past social history, past surgical history, and problem list. Review of Systems Objective Physical Exam Constitutional: Comments: Blood pressure is above target Neck: Vascular: No carotid bruit. Cardiovascular: Rate and Rhythm: Normal rate and regular rhythm. Heart sounds: No murmur heard. Pulmonary: Effort: Pulmonary effort is normal. Breath sounds: Normal breath sounds. Musculoskeletal: Right lower leg: No edema. Left lower leg: No edema. Assessment/Plan She will monitor her blood pressure serially. Further pending her course and response to initial blood pressure medication. Diagnoses and all orders for this visit: Primary hypertension - losartan (COZAAR) 50 mg tablet; Take 1 tablet (50 mg total) by mouth in the morning. documented in this encounter [facility] Note 04-25-2023 Telephone Encounter - Hanna Alan - 04/25/2023 3:30 PM EST Note Date & Type Note Facility 04-25-2023 Miscellaneous Notes Formattin g of this note might be different from the original. Carlos called and said that she is unable to sleep at night. She thinks some of it is pain from her ankle. She said she has been on Ambien in the past and is wondering if she could get some Ambien? Please advise documented in this encounter [facility] Telephone encounter Note 04-25-2023 Telephone Encounter - Hanna Alan - 04/25/2023 3:30 PM EST Note Date & Type Note Facility 04-25-2023 Telephone encount er Note Carlos called and said that she is unable to sleep at night. She thinks some of it is pain from her ankle. She said she has been on Ambien in the past and is wondering if she could get some Ambien? Please advise [facility] Evaluation note Note Date & Type Note Facility Evaluation note Diagnosis Primary hypertension- Primary Unspecified essential hypertension documented in this encounter [facility] Instructions Note Date & Type Note Facility Instructions Not on filedocumented in this en counter [facility] Instructions Note Date & Type Note Facility Instructions Not on filedocumented in this en counter [facility] Summary Purpose Family History No Family History Records FoundNo Family History Records FoundNo Family History Records FoundNo Family History Records Found Advance Directives No Advanced Directives Records FoundNo Advanced Directives Records FoundNo Advanced Directives Records FoundNo Advanced Directives Records Found Additional Source Comments INFORMATION SOURCE (unrecogn ized section and content) DATE CREATED AUTHOR 01/26/2022 [facility] DATE CREATED AUTHOR AUTHOR'S ORGANIZ ATION 02/22/2022 [facility] DATE CREATED AUTHOR AUTHOR'S ORGANIZ ATION 10/31/2023 [facility] EPIC DATE CREATED AUTHOR AUTHOR'S ORGANIZ ATION 11/14/2023 [facility] Care Teams (unrecognized sec tion and content) Black Pickler Relationship Specialty Start Date End Date Jonny Jeffries MD [address] [place] [address], [address] [place], [place] [id number] PCP - General Pediatrics 01/20/20 [employer] Relationship Specialty Start Date End Date Jonny Jeffries MD [address] [place] [address], [address] [place], [place] [id number] PCP - General Pediatrics 01/20/20 Reason for Visit (unrecogniz ed section and content) Reason Comments Hypertension headaches FOR RECORDS PERTAINING TO PATIENTS WHO ARE OR HAVE BEEN ENROLLED IN A CHEMICAL DEPENDENCY/SUBSTANCEABUSE PROGRAM, SOME INFORMATION MAY BE OMITTED. This clinical summary was aggregated from multiple sources. Caution should be exercised in using it in the provision of clinical care. This summary normalizes information from multiple sources, and as a consequence, information in this document may materially change the coding, format and clinical context of patient data. In addition, data may be omitted in some cases. CLINICAL DECISIONS SHOULD BE BASED ON THE PRIMARY CLINICAL RECORDS. [employer] [facility]. provides no warranty or guarantee of the accuracy or completeness of information in this document.
== END 2024-01-08 14:23 | disposition home or self-care (01) ==
LOC: VC 13:22
PROVIDERS: PCP Radiology Diagnostic Radiology; Visit Provider Radiology Diagnostic Radiology
DX: I83.813 Varicose veins of bilateral lower extremities with pain (principal)
CPT/HCPCS: 36478

== ENCOUNTER 2024-01-15 13:16 | Outpatient (OUT) | payer MEDICARE, SELFPAY ==
[2024-01-15 09:01] VITALS: BMI 28.0
--- NOTE | 2024-01-15 09:01 | V.VEINS.HP ---
Vital Signs 01/15/24 09:01 Height 5 ft 7 in Weight 81 kg BMI 28.0 Varicose Veins Patient in this day for EVLT of left GSV. Daljit Olivas MD personally performed the services described in this documentation, as scribed by Weston Olson RN in my presence and it is both accurate and complete. Weston Olivas RN, am scribing for, and in the presence of, Dr. Daljit Clemens and in the presence of the patient. thigh: bilateral (bilateral leg varicosities), knee: bilateral, calf: bilateral, ankle: bilateral and blake: bilateral aching, cramping and dull 3 1 year Worsened in recent months: Yes standing and walking analgesics (Ibuprofen 800mg), elevating extremities and compression stockings Reports muscle spasms of leg, bruising, fatigue, heaviness, restless legs and edema History of lower extremity trauma: No Superficial thrombophlebitis: No Family history of varicose veins: yes Has patient had previous lower extremity venous surgery: Yes Patient has previously received the following treatment(s) for lower extremity varicose veins: Reports vein ablation, sclerotherapy and foam therapy Does patient have a history of : no Does patient intend to have future pregnancies: no Has patient had lower extremity venous scan with relux testing: Yes Support hose used: Yes Problems walking or doing physical activity: Yes How does it affect you: often have to stop, rest, and elevate feet Do you walk much: Yes Do you stand much: Yes Bleeding signs: prolonged bleeding and excessive bruising Review of Systems ROS Narrative Daljit Olivas MD personally performed the services described in this documentation, as scribed by Weston Olson RN in my presence and it is both accurate and complete. IWeston RN, am scribing for, and in the presence of, Dr. Daljit Clemens and in the presence of the patient. Status of ROS 10 or more systems reviewed and unremarkable except as noted in history and below Cardiovascular Reports: edema Integumentary/Breast Reports: redness, skin pain, skin tenderness, skin swelling, new lesion and changes in skin color Neurological Reports: numbness in extremities and weakness in extremities Hematologic/Lymphatic Reports: easy bruising and easy bleeding [facility] Medical History (Updated 01/15/24 @ 09:03 by Daphney Ferrer) Phlebitis and thrombophlebitis of superficial vessels of left lower extremity ?I80.02 - Phlebitis and thrombophlebitis of superficial vessels of left lower extremity (ICD-10) Cellulitis ?L03.90 - Cellulitis, unspecified (ICD-10) Left knee injury ?S89.92XA - Unspecified injury of left lower leg, initial encounter (ICD-10) Varicose veins of bilateral lower extremities with pain ?I83.813 - Varicose veins of bilateral lower extremities with pain (ICD-10) Surgical History (Updated 01/08/24 @ 14:26 by Weston Olson) Status post laser ablation of incompetent vein ?Z98.890 - Other specified postprocedural states (ICD-10) Status post sclerotherapy of varicose veins ?Z98.890 - Other specified postprocedural states (ICD-10) ?Z86.79 - Personal history of other diseases of the circulatory system (ICD-10) History of right hip replacement ?Z96.641 - Presence of right artificial hip joint (ICD-10) Family History (Updated 11/27/23 @ 07:32 by Weston Olson) Other Family history of COPD (chronic obstructive pulmonary disease) Heart disease Varicose veins of bilateral lower extremities with pain Social History (Updated 11/27/23 @ 07:31 by Weston Olson) Within the past year, how often did you have a drink containing alcohol: 2-3 times a week Smoking status: Never smoker Non-prescribed substance use: denies use Meds Home Medications and Allergies Home Medications ?Medication ?Instructions ?Recorded ?Confirmed ?Type ibuprofen 800 mg tablet 800 mg PO DAILY 02/21/23 02/21/23 History sertraline 50 mg tablet (Zoloft) 50 mg PO DAILY 02/21/23 02/21/23 History losartan .ROUTE 11/27/23 History Allergies Allergy/AdvReac Type Severity Reaction Status Date / Time No Known Drug Allergies Allergy Verified 11/27/23 07:30 Exam Narrative Exam Narrative: IDaljit MD personally performed the services described in this documentation, as scribed by Weston Olson RN in my presence and it is both accurate and complete. IWeston RN, am scribing for, and in the presence of, Dr. Daljit Clemens and in the presence of the patient. Constitutional Documenting provider has reviewed patient's vital signs: yes Common normals: oriented x3 Nutritional appearance: overweight Cardio Peripheral pulses: posterior tibial pulses present and dorsalis pedis pulses present Extremity Common normals: normal capillary refill General: calf tenderness and edema Right lower extremity: lower leg Right lower leg: inspection and palpation Left lower extremity: lower leg Left lower leg: inspection and palpation Other: Multiple open areas of wound noted to bilateral legs Nacho Olivas MD personally performed the services described in this documentation, as scribed by Weston Olson RN in my presence and it is both accurate and complete. IWeston RN, am scribing for, and in the presence of, Dr. Nacho Rand and in the presence of the patient. Neuro Common normals: oriented x3 Results Imaging Venous US: Radiologist's impression: Heat induced thrombus in left GSV Daljit Olivas MD personally performed the services described in this documentation, as scribed by Daphney Ferrer RDMS in my presence and it is both accurate and complete. IDaphney RDMS, am scribing for, and in the presence of, Dr. Daljit Clemens and in the presence of the patient. Assessment and Plan Assessment and Plan (1) Phlebitis and thrombophlebitis of superficial vessels of left lower extremity: Plan Plan is for patient to return for EVLT of left SSV. Daljit Olivas MD personally performed the services described in this documentation, as scribed by Daphney Ferrer RDMS in my presence and it is both accurate and complete. Daphney Olivas RDMS, am scribing for, and in the presence of, Dr. Daljit Clemens and in the presence of the patient.
--- NOTE | 2024-01-15 13:17 | VEIN_ITS ---
Patient Name: CARLOS ABEL MR#: [id number] : 1950 Exam Date: 01/15/2024 Ordering Doctor: DR DALJIT CLEMENS M.D. RADIOLOGY REPORT PROCEDURE: FACILITY EST [facility] - OFFICE VISIT FOLLOW UP COMPARISON: None. PROGRESS NOTES: The patient reports no significant problems following intravenous laser ablation of the left great saphenous vein. The patient required no oral analgesics. The patient did wear her compression stocking and exercised daily. Physical exam demonstrates no bruising. No erythema or warmth to suggest cellulitis or thrombophlebitis. No active ulceration. The incision is sealed. Review of the ultrasound performed the same day demonstrates occlusive thrombus extending throughout the treated left great saphenous vein with heat induced thrombus 2.2 cm from the saphenofemoral junction. No deep vein thrombus. The patient expressed a desire to proceed with treatment of the left small saphenous vein. VEIN/[facility] EST TD IMPRESSION: 1. Successful ablation of the left great saphenous vein 2. Persistent incompetent left small saphenous vein. PLAN: Intravenous laser ablation left small saphenous vein Nurse notes, history and physical were reviewed and confirmed, see attached forms. The nurse was present throughout the physical exam and consultation Dictated by: Daljit Clemens MD on 01/15/2024 at 13:55 Approved by: Daljit Clemens MD on 01/15/2024 at 15:08
--- NOTE | 2024-01-15 13:17 | VEIN_ITS ---
Patient Name: CARLOS ABEL MR#: [id number] : 1950 Exam Date: 01/15/2024 Ordering Doctor: DR DALJIT CLEMENS M.D. RADIOLOGY REPORT PROCEDURE: VC EXT VENOUS LT LIMITED COMPARISON: None. INDICATIONS: I80.02 - Phlebitis and thrombophlebitis of superficial ve... TECHNIQUE: Lower extremity morris scale and Duplex Doppler evaluation of the deep venous system from the inguinal ligament through the calf veins. FINDINGS: REGION: Left lower extremity. THROMBI: Negative for DVT. Heat induced thrombus visualized 2.2cm from the SFJ. The heat induced thrombus extends from groin to distal thigh. COMPRESSIBILITY: Non-compressible segments corresponding to thrombus FLOW: Areas of no flow corresponding to thrombus CONCLUSION: Post ablation occlusion of the left great saphenous vein with heat induced thrombus 2.2 cm from the saphenofemoral junction Dictated by: Daljit Clemens MD on 01/15/2024 at 13:42 Approved by: Daljit Clemens MD on 01/15/2024 at 13:55
[2024-01-15 13:32] VITALS: BMI 28.0
--- NOTE | 2024-01-15 13:32 | VEINCLINIC_ITS ---
Vital Signs 01/15/24 09:01 01/15/24 13:32 Height 5 ft 7 in 5 ft 7 in Weight 81 kg 81 kg BMI 28.0 28.0 Varicose Veins Patient in this day for follow up ultrasound post EVLT of left GSV. Daljit Olivas MD personally performed the services described in this documentation, as scribed by Akilah Santiago RVT, RDMS in my presence and it is both accurate and complete. Akilah Olivas RVT, RDMS, am scribing for, and in the presence of, Dr. Daljit Clemens and in the presence of the patient. thigh: bilateral (bilateral leg varicosities), knee: bilateral, calf: bilateral, ankle: bilateral and blake: bilateral aching, cramping and dull 3 1 year Worsened in recent months: Yes standing and walking analgesics (Ibuprofen 800mg), elevating extremities and compression stockings Reports muscle spasms of leg, bruising, fatigue, heaviness, restless legs and edema History of lower extremity trauma: No Superficial thrombophlebitis: No Family history of varicose veins: yes Has patient had previous lower extremity venous surgery: Yes Patient has previously received the following treatment(s) for lower extremity varicose veins: Reports vein ablation, sclerotherapy and foam therapy Does patient have a history of : no Does patient intend to have future pregnancies: no Has patient had lower extremity venous scan with relux testing: Yes Support hose used: Yes Problems walking or doing physical activity: Yes How does it affect you: often have to stop, rest, and elevate feet Do you walk much: Yes Do you stand much: Yes Bleeding signs: prolonged bleeding and excessive bruising Review of Systems ROS Narrative Daljit Olivas MD personally performed the services described in this documentation, as scribed by Akilah Santiago RVT, RDMS in my presence and it is both accurate and complete. Brendon, Akilah Santiago RVT, RDMS, am scribing for, and in the presence of, Dr. Daljit Clemens and in the presence of the patient. Status of ROS 10 or more systems reviewed and unremark able except as noted in history and below Cardiovascular Reports: edema Integumentary/Breast Reports: redness, skin pain, skin tenderness, skin swelling, new lesion and changes in skin color Neurological Reports: numbness in extremities and weakness in extremities Hematologic/Lymphatic Reports: easy bruising and easy bleeding PFSH PFS Medical History (Updated 01/15/24 @ 09:03 by Daphney Ferrer) Phlebitis and thrombophlebitis of superficial vessels of left lower extremity ?I80.02 - Phlebitis and thrombophlebitis of superficial vessels of left lower extremity (ICD-10) Cellulitis ?L03.90 - Cellulitis, unspecified (ICD-10) Left knee injury ?S89.92XA - Unspecified injury of left lower leg, initial encounter (ICD-10) Varicose veins of bilateral lower extremities with pain ?I83.813 - Varicose veins of bilateral lower extremities with pain (ICD-10) Surgical History (Updated 01/08/24 @ 14:26 by Weston Olson) Status post laser ablation of incompetent vein ?Z98.890 - Other specified postprocedural states (ICD-10) Status post sclerotherapy of varicose veins ?Z98.890 - Other specified postprocedural states (ICD-10) ?Z86.79 - Personal history of other diseases of the circulatory system (ICD- 10) History of right hip replacement ?Z96.641 - Presence of right artificial hip joint (ICD-10) Family History (Updated 11/27/23 @ 07:32 by Weston Olson) Other Family history of COPD (chronic obstructive pulmonary disease) Heart disease Varicose veins of bilateral lower extremities with pain Social History (Updated 11/27/23 @ 07:31 by Weston Olson) Within the past year, how often did you have a drink containing alcohol: 2-3 t imes a week Smoking status: Never smoker Non-prescribed substance use: denies use Meds Home Medications and Allergies Home Medications ?Medication ?Instructions ?Recorded ?Confirmed ?Type ibuprofen 800 mg tablet 800 mg PO DAILY 02/21/23 02/21/23 History sertraline 50 mg tablet (Zoloft) 50 mg PO DAILY 02/21/23 02/21/23 History losartan .ROUTE 11/27/23 History Allergies Allergy/AdvReac Type Severity Reaction Status Date / Time No Known Drug Allergies Allergy Verified 11/27/23 07:30 Exam Narrative Exam Narrative: I, Daljit Clemens MD personally performed the services described in this documentation, as scribed by Akilah Santiago RVT, KISHORE in my presence and it is both accurate and complete. I, Akilah Elmlinger RVT, RDMS, am scribing for, and in the presence of, Dr. Daljit Clemens and in the presence of the patient. Constitutional Documenting provider has reviewed patient's vital signs: yes Common normals: oriented x3 Nutritional appearance: overweight Cardio Peripheral pulses: posterior tibial pulses present and dorsalis pedis pulses present Extremity Common normals: normal capillary refill General: calf tenderness and edema Right lower extremity: lower leg Right lower leg: inspection and palpation Left lower extremity: lower leg Left lower leg: inspection and palpation Other: Multiple open areas of wound noted to bilateral legs INacho MD personally performed the services described in this documentation, as scribed by Weston Olson RN in my presence and it is both accurate and complete. IWeston RN, am scribing for, and in the presence of, Dr. Nacho Rand and in the presence of the patient. Neuro Common normals: oriented x3 Results Imaging Venous US: Radiologist's impression: The ultrasound demonstrates Heat induced thrombus visualized 2.2cm from the SFJ. The heat induced thrombus extends from groin to distal thigh. Assessment and Plan Assessment and Plan (1) Phlebitis and thrombophlebitis of superficial vessels of left lower extremity: Plan Patient in today for follow up ultrasound of lower extremity following treatment of EVLT of left leg GSV completed on 01/08/24
--- NOTE | 2024-01-15 13:34 | P.DS_ITS ---
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 - Location: [facility] Ordered By: Daljit Clemens Plan of Treatment: Varithena/microfoam chemical ablation right leg. Print Language: Divehi Discharge Date/Time: 01/15/24 13:55
--- OUTSIDE RECORDS SUMMARY | 2024-01-15 13:35 | XMS_ITS | CCD ---
Author Organization [facility] Care Team Providers Care Spray Machine Tender Name Role Phone MECHELLE WOMACK Admitting Unavailable MECHELLE WOMACK Attending Unavailable KEVESTAND, DR JONNY Pro Primary Care Unavailable Dariusebclaire, [...] Primary Care Unavailable DAVE MEJÍA Admitting Unavailable DAVE MEJÍA Attending Unavailable BLANQUITA KING Consulting Unavailable ALFONZO, DAVE Consulting Unavailable KLYM, CADEN Consulting Unavailable TANILLIRomi, DR SAMANTHA Stovall Admitting Unavailabl e EUFEMIA, DR SAMANTHA Stovall Attending Unavailabl e MERVIN, DR JONNY Pro Primary Care Unavailable EUFEMIA, DR SAMANTHA Stovall Consulting UnavailMECHELLE Rhoades Admitting Unavailable MECHELLE WOMACK Attending Unavailable HIESTAND, DR JONNY Pro Primary Care Unavailable MECHELLE WOMACK Admitting Unavailable MECHELLE WOMACK Attending Unavailable HIESTHEATHER, DR JONNY Pro Primary Care Unavailable EUFEMIA, DR SAMANTHA Stovall Admitting Unavailabl e EUFEMIA, DR SAMANTHA Stovall Attending Unavailabl e HIESTAND, DR JONNY Pro Primary Care Unavailable EUFEMIA, DR ASMANTHA Stovall Consulting Unavailabl GUI Bess Consulting Unavailable MECHELLE WOMACK Admitting Unavailable MECHELLE WOMACK Attending Unavailable MERVIN, DR JONNY Pro Primary Care Unavailable Jonny Jeffries MD Primary Care Provider JONNY JEFFRIES Attending Unavailable JONNY JEFFRIES Referring Unavailable JONNY JEFFRIES Primary Care Unavailable JONNY JEFFRIES Attending Unavailable JONNY JEFFRIES Referring Unavailable JONNY JEFFRIES Primary Care Unavailable TALIB GUTIERRES Attending Unavailable TALIB GUTIERRES Referring Unavailable TEN GREENE Attending Unavailable TEN GREENE Attending Unavailable TEN GREENE Attending Unavailable TALIB GUTIERRES Attending Unavailable Allergies Allergy Classification Reported Allergen(s) Allergy Type Date of Onset Reaction(s) Facility (1 source) bee venom Drug allergy (disorder) The Repository Medications Current Medications Medication Drug Class(es) [...] 12-23-2022 12-23-2022 Other aftercare (1 source) Other nursing home (current) drug therapy; Translations: [OTH 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 Normal [facility] ABO AND RH TYPEon 01-11-2022 ABO and Rh group Nom (Bld) ABO Rh Typing B Rh Positive Normal [facility] Comment on above: Performed By: #### A JANELLE #### Laboratory [address] [address] [address] Rufino Thomas LIPID PROFILEon 01-11-2022 CHOL-HDL RATIO NORM SEE BELOW Normal [facility] Comment on above: Result Comment: 3.3 - 4.4 LOW RISK 4.4 - 7.1 AVERAGE RISK 7.1 - 11.0 MODERATE RISK >11.0 HIGH RISK Performed By: #### L IPID, CMP #### Laboratory [address] [place] [address] Dr. Rufino Thomas Cholesterol [Mass/Vol] 227 mg/dL Critically high <=200 [facility] Comment on above: Performed By: #### L IPID, CMP #### Laboratory [address] [address] [address] Rufino Thomas Cholesterol in HDL [Mass/Vol] 63 mg/dL Critically high 40-60 [facility] Comment on above: Performed By: #### L IPID, CMP #### Laboratory [address] [address] [address] Rufino Thomas Cholesterol in LDL [Mass/Vol] 151.4 mg/dL Normal [facility] Comment on above: Performed By: #### L IPID, CMP #### Laboratory [address] [address] [address] Rufino Thomas Cholesterol.total/ Cholesterol in HDL [Mass ratio] 3.6 {ratio} Normal [facility] Comment on above: Performed By: #### L IPID, CMP #### Laboratory [address] [address] [address] Rufino Thomas HDL NORMAL > or = 60 mg/dl - LO W CARDIOVASCULAR RISK <40 mg/dl - HIGH CARDIOVASCULAR RISK Normal [facility] Comment on above: Performed By: #### L IPID, CMP #### Laboratory [address] [address] [address] Rufino Thomas LDL CALC NORMAL SEE BELOW Normal [facility] Comment on above: Result Comment: <100 mg/dl OPTIMAL 100 - 129 mg/dl NEAR OR ABOVE OPTIMAL 130 - 159 mg/dl BORDERLINE HIGH 160 - 189 mg/dl HIGH >190 mg/dl VERY HIGH Performed By: #### L IPID, CMP #### Laboratory [address] [address] [address] Rufino Thomas Triglyceride [Mass/Vol] 63 mg/dL Normal <=150 [facility] Comment on above: Performed By: #### L IPID, CMP #### Laboratory [address] [address] [address] Rufino Thomas VLDL CALC 12.6 mg/dL Normal [facility] Comment on above: Performed By: #### L IPID, CMP #### Laboratory [address] [address] [address] Rufino Thomas PROF 14(COMP METB)on 022 Albumin [Mass/Vol] 3.4 g/dL Normal 3.4-5.0 [facility] Comment on above: Performed By: #### L IPID, CMP #### Laboratory [address] [place] [address] Dr. Rufino Thomas Albumin/Globulin [Mass ratio] 0.9 {ratio} Normal [facility] Comment on above: Performed By: #### L IPID, CMP #### Laboratory [address] [place] [address] Dr. Rufino Thomas ALP [Catalytic activity/Vol] 61 U/L Normal 46-116 The Comment on above: Performed By: #### L IPID, CMP #### Laboratory [address] [place] [address] Dr. Rufino Thomas ALT [Catalytic activity/Vol] 41 U/L Normal 14-59 [facility] Comment on above: Performed By: #### L IPID, CMP #### Laboratory [address] [place] [address] Dr. Rufino Thomas Anion gap [Moles/Vol] 9.9 mmol/L Normal [facility] Comment on above: Performed By: #### L IPID, CMP #### Laboratory [address] [address] [address] Rufino Thomas AST [Catalytic activity/Vol] 30 U/L Normal 15-37 [facility] Comment on above: Performed By: #### L IPID, CMP #### Laboratory [address] [address] [address] Rufino Thomas Bilirubin [Mass/Vol] 0.4 mg/dL Normal 0.2-1.0 [facility] Comment on above: Performed By: #### L IPID, CMP #### Laboratory [address] [place] [address] Dr. Rufino Thomas Calcium [Mass/Vol] 8.8 mg/dL Normal 8.5-10.1 [facility] Comment on above: Performed By: #### L IPID, CMP #### Laboratory [address] [place] [address] Dr. Rufino Thomas Chloride [Moles/Vol] 106 mmol/L Normal 98-107 The Comment on above: Performed By: #### L IPID, CMP #### Laboratory [address] [place] [address] Dr. Rufino Thomas CO2 [Moles/Vol] 27.3 mmol/L Normal 21.0-32.0 [facility] Comment on above: Performed By: #### L IPID, CMP #### Laboratory [address] [place] [address] Dr. Rufino Thomas Creatinine [Mass/Vol] 0.71 mg/dL Normal 0.55-1.02 [facility] Comment on above: Performed By: #### L IPID, CMP #### Laboratory [address] [place] [address] Dr. Rufino Thomas EGFR-AF IRANIAN >60 Normal >=60 [facility] Comment on above: Performed By: #### L IPID, CMP #### Laboratory [address] [address] [address] Rufino Thomas EGFR-NON AF IRANIAN >60 Normal >=60 The Comment on above: Performed By: #### L IPID, CMP #### Laboratory [address] [address] [address] Rufino Thomas Globulin (S) [Mass/Vol] 3.9 g/dL Normal [facility] Comment on above: Performed By: #### L IPID, CMP #### Laboratory [address] [address] [address] Rufino Thomas Glucose [Mass/Vol] 95 mg/dL Normal 74-106 [facility] Comment on above: Performed By: #### L IPID, CMP #### Laboratory [address] [place] [address] Dr. Rufino Thomas Potassium [Moles/Vol] 4.2 mmol/L Normal 3.5-5.1 The Comment on above: Performed By: #### L IPID, CMP #### Laboratory [address] [place] [address] Dr. Rufino Thomas Protein [Mass/Vol] 7.3 g/dL Normal 6.4-8.2 [facility] Comment on above: Performed By: #### L IPID, CMP #### Laboratory [address] [address] [address] Rufino Thomas Sodium [Moles/Vol] 139 mmol/L Normal 136-145 [facility] Comment on above: Performed By: #### L IPID, CMP #### Laboratory [address] [place] [address] Dr. Rufino Thomas Urea nitrogen [Mass/Vol] 16.0 mg/dL Normal 7.0-18.0 [facility] Comment on above: Performed By: #### L IPID, CMP #### Laboratory [address] [place] [address] Dr. Rufino Thomas Urea nitrogen/Creatinin e [Mass ratio] 22.5 mg/mg Normal [facility] Comment on above: Performed By: #### L IPID, CMP #### Laboratory [address] [place], [place] [address] Dr. Rufino Thomas XR ANKLE MILTON MIN [...] SILVIA MOJICA Date: 2021-10-20 17:48 Normal The H PYLORI TISSUEon 05-19-2021 H PYL TISSUE, UREASE Negative Normal NEGATIVE The Comment on above: Performed By: #### H PYLT #### Laboratory [address] [place], [place] [address] Dr. Rufino Thomas [facility] SARS-CoV-2 (COVID-19) RNA GIOVANNY+probe Ql (Unsp spec) Not detected Normal NOT DETECTED The Comment on above: Result Comment: This test is not yet approved or cleared by the [place] FDA. When there are no FDA-approved or cleared tests available, and other criteria are met, FDA can make tests available under an emergency access mechanism called an Emergency Use Authorization (EUA). The EUA for this test is supported by the [place] of Health and Human Service's (HHS's) declaration [...] SARS-CoV-2. Performed By: #### C VDTB #### Laboratory [address] [place] [address] [address] [address] Rufino Thomas Cov[facility]on SARS-CoV-2 (COVID-19) RNA GIOVANNY+probe Ql (Unsp spec) Not detected Normal NOT DETECTED The Comment on above: Result Comment: This test is not yet approved or cleared by the [place] FDA. When there are no FDA-approved or cleared tests available, and other criteria are met, FDA can make tests available under an emergency access mechanism called an Emergency Use Authorization (EUA). The EUA for this test is supported by the [place] of Health and Human Service's (HHS's) declaration [...] SARS-CoV-2. Performed By: #### C VDTB #### Laboratory [address] [place] [address] [address] [address] Rufino Thomas US ARNAV DOP LEG [...] BLANQUITA KING Date: 2021-03-06 14:58 Normal The XR KNEE RT 4V or >on 021 XR KNEE RT 4V or > RIGHT KNEE FOUR VIEWS: 03/06/2021 1:44 PM EDT Clinical Data: Pain. No injury Comparison: No previous No evidence of acute fracture or dislocation. Langley thin probable chronic lucencies proximal tibial shaft are relatively well-defined No joint effusion. Infrapatellar fat is preserved. There is some soft tissue density prominence overlying the patella IMPRESSION: 1. Some soft tissue density prominence overlying the patella. Clinical correlation is needed. 2. No evidence of acute fracture or dislocation Electronically authenticated by: CADEN JEWELL Date: 2021-03-06 14:56 Normal [facility] Vital Signs Date Time Vital Sign Value Performing Clinician Nicole alfred 05-08-2023 14:32-0500 Diastolic blood pressure 106 mm[Hg] Jonny Jeffries MD Work Phone: [facility] 05-08-2023 14:32-0500 Heart rate 88 /min Jonny Jeffries MD Work Phone: [facility] 05-08-2023 14:32-0500 Systolic blood pressure 173 mm[Hg] Jonny Jeffries MD Work Phone: [facility] Encounters Encounter Date Encounter Type Care Provider Facility Start: 01-09-2024 End: 01-09-2024 ambulatory TALIB GUTIERRES Not Available Start: 11-06-2023 End: 11-06-2023 ambulatory [facility] Start: 10-30-2023 End: 10-30-2023 ambulatory TEN S RUSHER Not Available Start: 09-20-2023 End: 09-20-2023 ambulatory TEN S RUSHER Not Available Start: 09-05-2023 End: 09-05-2023 ambulatory TEN S RUSHER Not Available Start: 07-18-2023 End: 07-18-2023 ambulatory TLAIB GUTIERRES Not Available Start: 05-08-2023 End: 05-08-2023 ambulatory [facility] Start: 05-08-2023 End: 05-08-2023 Office outpatient visit 15 minutes Jonny Jeffries MD Work Phone: [facility] Comment on above: Primary hypertension (Primary Dx) Start: 04-25-2023 Telephone encounter Jonny oliva MD Work Phone: [facility] Start: 01-11-2022 End: 01-12-[address] JONNY JEFFRIES Facility:[facility] Start: 10-20-2021 End: 10-21-2021 ambulatory MECHELLE WOMACK Facility:[facility] Start: 05-19-2021 Encounter for preprocedural laboratory examination DR SAMANTHA FALL [facility] Start: 05-19-2021 End: 05-19-[address] SAMANTHA [...] Td Vaccines (2 - Td or Tdap) [facility] Start: 05-19-2026 Screening for malignant neoplasm of colon Colonoscopy [facility] Start: 03-10-2024 Tobacco Screening Tobacco Screening [facility] Start: 12-24-2023 Depression Screening Depression Screening [facility] Start: 12-24-2023 Fall Risk Screening Fall Risk Screening [facility] Start: 12-24-2023 Medicare Annual Wellness Visit Medicare Annual Wellness Visit [facility] Start: 12-30-2022 COVID-19 Vaccine ( season) COVID-19 Vaccine ( season) [facility] Start: 12-30-2022 Influenza vaccination Influenza Vaccine [facility] Start: 11-26-2022 Adult BMI Screening Adult BMI Screening [facility] Start: 12-24-2021 Screening for malignant neoplasm of breast Mammogram [facility] Start: 2002 Administration of varicella zoster vaccine Zoster (Shingles) Vaccine (1 of 2) [facility] Immunizations Immunization Date Immunization Notes Care Provider Fa cility 07-11-2020 COVID-19, mRNA, LNP- S, PF, 30mcg/0.3mL Dose Jonny Jeffries MD Work Phone: [facility] 06-20-2020 COVID-19, mRNA, LNP- S, PF, 30mcg/0.3mL Dose Jonny Jeffries MD Work Phone: [facility] 09-20-2018 tetanus toxoid, redu luca diphtheria toxoid, and acellular pertussis vaccine, adsorbed Jonny Jeffries MD Work Phone: [facility] Payers Date Payer Category Payer Medicare [id number] 2019 Private Health Insurance [facility] AARP SUPPLEMENT [id number] 2019-Present [phone] [address] [place] [address] [id number] 2017 Medicare [id number] 1959 Medicare [id number] 1959 Unknown [id number] 1952 Unknown [id number] 2.16.840.1.969538.3.579.2 .593 1952 Unknown [id number] 2.16.840.1.543833.3.579.2 .593 1952 Unknown [id number] 2.16.840.1.337300.3.579.2 .593 1952 Unknown [id number] 2.16.840.1.139941.3.579.2 .593 1952 Unknown [id number] 2.16.840.1.755323.3.579.2 .593 1952 Unknown [id number] 2.16.840.1.712143.3.579.2 .593 1952 Unknown [id number] 2.16.840.1.097824.3.579.2 .593 1952 Unknown [id number] 2.16.840.1.829667.3.579.2 .593 1952 Unknown [id number] 2.16.840.1.815594.3.579.2 .593 1952 Unknown [id number] 2.16.840.1.469967.3.579.2 .1286 1952 Unknown [id number] 2.16.840.1.747787.3.579.2 .1286 1952 Unknown [id number] 2.16.840.1.161978.3.579.2 .125 1952 Unknown [id number] 2.16.840.1.177809.3.579.2 .125 1952 Unknown [id number] 2.16.840.1.539409.3.579.2 .1258 1952 Unknown [id number] 2.16.840.1.466387.3.579.2 .125 1952 Unknown [id number] 2.16.840.1.388158.3.579.2 .1258 1952 Unknown [id number] 2.16.840.1.037418.3.579.2 .1259 Social History Date Type Detail Facility Start: 12-23-2022 Tobacco smoking stat [facility] Never smoked tobacco [facility] Start: 12-23-2022 Tobacco use and exposure Smoke less tobacco non-user [facility] Start: 03-10-2023 End: 05-08-2023 Alcohol intake Current drinker of alcohol (finding) [facility] Start: 10-05-2021 End: 03-10-[address] [facility] Start: 10-05-2021 End: 12-23-2022 Social connection and isolation panel [facility] Do you belong to any clubs or organizations such as restoration groups, unions, fraternal or athletic groups, or school groups? No [facility] Attends Club or Organization Meetings Not on file [facility] Are you now , , , , never or living with a partner? Never [facility] How often to you hav e a drink containing alcohol? 4 or more times a week [facility] How many standard dr inks containing alcohol do you have on a typical day? [address] [facility] How often do you hav e 6 or more drinks on 1 occasion? Never [facility] How hard is it for y ou to pay for the very basics like food, housing, medical care, and heating Somewhat hard [facility] Do you feel stress - tense, restless, nervous, or anxious, or unable to sleep at night because your mind is troubled all the time - these days [OSQ] Very much [facility] Start: 10-05-[address] [facility] Start: 09-09-2020 Alcohol Comment alot weekly [facility] Start: 1950 Sex Assigned At Not on file [facility] History of Present illness Narrative 05-08-2023 Jonny Jeffries MD - 05/08/2023 2:30 PM EST Note Date & Type Note Facility 05-08-2023 History of Presen t illness Narrative Subjective Patient ID: Guillermina De La Torre is a 72 y.o. [...] in the morning. documented in this encounter [facility] Note 04-25-2023 Telephone Encounter - Hanna Alan - 04/25/2023 3:30 PM EST Note Date & Type Note Facility 04-25-2023 Miscellaneous Notes Formattin g of this note might be different from the original. Guillermina called and said that she is unable to sleep at night. She thinks some of it is pain from her ankle. She said she has been on Ambien in the past and is wondering if she could get some Ambien? Please advise documented in this encounter [facility] [employer] [facility] Telephone encounter Note 04-25-2023 Telephone Encounter - Hanna Alan - 04/25/2023 3:30 PM EST Note Date & Type Note Facility 04-25-2023 Telephone encount er Note Guillermina called and said that she is unable [...] section and content) DATE CREATED AUTHOR 01/26/2022 [facility] DATE CREATED AUTHOR AUTHOR'S ORGANIZ ATION 02/22/2022 [facility] DATE CREATED AUTHOR AUTHOR'S ORGANIZ ATION 11/14/2023 [facility] DATE CREATED AUTHOR AUTHOR'S ORGANIZ ATION 01/11/2024 [facility] Special[facility] [employer] Care Teams (unrecognized sec tion and content) Spray Machine Tender Relationship Specialty Start Date End Date Jonny Jeffries MD [address] [place] [address], [address] [place] [address] PCP - General Pediatrics 01/20/20 Spray Machine Tender Relationship Specialty Start Date End Date Jonny Jeffries MD [address] [place] [address], [address] [place], [place] [id number] PCP - General Pediatrics 01/20/20 Reason for [...] BE BASED ON THE PRIMARY CLINICAL RECORDS. [facility] [employer] [facility]. provides no warranty or guarantee of the accuracy or completeness of information in this document.
== END 2024-01-15 13:55 | disposition home or self-care (01) ==
PROVIDERS: PCP Radiology Diagnostic Radiology; Visit Provider Radiology Diagnostic Radiology
DX: I80.02 Phlebitis and thrombophlebitis of superficial vessels of left lower extremity (principal)
CPT/HCPCS: 93971; G0463

== ENCOUNTER 2024-01-26 11:00 | Outpatient (OUT) | payer MEDICARE, SELFPAY ==
--- NOTE | 2024-01-25 09:28 | VEINCLINIC_ITS ---
Vital Signs 01/26/24 11:11 01/26/24 11:34 Height 5 ft 7 in Weight 81 kg BP 107/66 BP Location Left Brachial BP Position Sitting BP Cuff Size Adult BP Source Manual Cuff Respiration 16 Pulse 75 Pulse Source Monitor Pulse Oximetry (%) 98 Oxygen Delivery Method Room Air Varicose Veins Patient in this day for EVLT of left SSV Nacho Olivas MD personally performed the services described in this documentation, as scribed by Weston Olson RN in my presence and it is both accurate and complete. IWeston RN, am scribing for, and in the presence of, Dr. Nacho Rand and in the presence of the patient.. thigh: bilateral (bilateral leg varicosities), knee: bilateral, calf: bilateral, ankle: bilateral and blake: bilateral aching, cramping and dull 3 1 year Worsened in recent months: Yes standing and walking analgesics (Ibuprofen 800mg), elevating extremities and compression stockings Reports muscle spasms of leg, bruising, fatigue, heaviness, restless legs and edema History of lower extremity trauma: No Superficial thrombophlebitis: No Family history of varicose veins: yes Has patient had previous lower extremity venous surgery: Yes Patient has previously received the following treatment(s) for lower extremity varicose veins: Reports vein ablation, sclerotherapy and foam therapy Does patient have a history of : no Does patient intend to have future pregnancies: no Has patient had lower extremity venous scan with relux testing: Yes Support hose used: Yes Problems walking or doing physical activity: Yes How does it affect you: often have to stop, rest, and elevate feet Do you walk much: Yes Do you stand much: Yes Bleeding signs: prolonged bleeding and excessive bruising Review of Systems ROS Narrative Nacho Olivas MD personally performed the services described in this documentation, as scribed by Weston Olson RN in my presence and it is both accurate and complete. Weston Olivas RN, am scribing for, and in the presence of, Dr. Nacho Rand and in the presence of the patient. Status of ROS 10 or more systems reviewed and unremark able except as noted in history and below Cardiovascular Reports: edema Integumentary/Breast Reports: redness, skin pain, skin tenderness, skin swelling, new lesion and changes in skin color Neurological Reports: numbness in extremities and weakness in extremities Hematologic/Lymphatic Reports: easy bruising and easy bleeding PFSH [facility] Medical History (Updated 01/15/24 @ 09:03 by Daphney Ferrer) Phlebitis and thrombophlebitis of superficial vessels of left lower extremity ?I80.02 - Phlebitis and thrombophlebitis of superficial vessels of left lower extremity (ICD-10) Cellulitis ?L03.90 - Cellulitis, unspecified (ICD-10) Left knee injury ?S89.92XA - Unspecified injury of left lower leg, initial encounter (ICD-10) Varicose veins of bilateral lower extremities with pain ?I83.813 - Varicose veins of bilateral lower extremities with pain (ICD-10) Surgical History (Updated 01/26/24 @ 11:30 by Weston Olson) Status post laser ablation of incompetent vein ?Z98.890 - Other specified postprocedural states (ICD-10) Status post laser ablation of incompetent vein ?Z98.890 - Other specified postprocedural states (ICD-10) Status post sclerotherapy of varicose veins ?Z98.890 - Other specified postprocedural states (ICD-10) ?Z86.79 - Personal history of other diseases of the circulatory system (ICD- 10) History of right hip replacement ?Z96.641 - Presence of right artificial hip joint (ICD-10) Family History (Updated 11/27/23 @ 07:32 by Weston Olson) Other Family history of COPD (chronic obstructive pulmonary disease) Heart disease Varicose veins of bilateral lower extremities with pain Social History (Updated 11/27/23 @ 07:31 by eWston Olson) Within the past year, how often did you have a drink containing alcohol: 2-3 times a week Smoking status: Never smoker Non-prescribed substance use: denies use Meds Home Medications and Allergies Home Medications ?Medication ?Instructions ?Recorded ?Confirmed ?Type ibuprofen 800 mg tablet 800 mg PO DAILY 02/21/23 02/21/23 History sertraline 50 mg tablet (Zoloft) 50 mg PO DAILY 02/21/23 02/21/23 History losartan .ROUTE 11/27/23 History Allergies Allergy/AdvReac Type Severity Reaction Status Date / Time No Known Drug Allergies Allergy Verified 11/27/23 07:30 Exam Narrative Exam Narrative: Nacho Olivas MD personally performed the services described in this documentation, as scribed by Weston Olson RN in my presence and it is both accurate and complete. IWeston RN, am scribing for, and in the presence of, Dr. Nacho Rand and in the presence of the patient. Constitutional Documenting provider has reviewed patient's vital signs: yes Common normals: oriented x3 Nutritional appearance: overweight Cardio Peripheral pulses: posterior tibial pulses present and dorsalis pedis pulses present Extremity Common normals: normal capillary refill General: calf tenderness and edema Right lower extremity: lower leg Right lower leg: inspection and palpation Left lower extremity: lower leg Left lower leg: inspection and palpation Other: Multiple open areas of wound noted to bilateral legs Nacho Olivas MD personally performed the services described in this documentation, as scribed by Weston Olson RN in my presence and it is both accurate and complete. IWeston RN, am scribing for, and in the presence of, Dr. Nacho Rand and in the presence of the patient. Neuro Common normals: oriented x3 Assessment and Plan Assessment and Plan (1) Varicose veins of bilateral lower extremities with pain: Plan f/u evaluation with physician along with left leg limited u/s Nacho Olivas MD personally performed the services described in this documentation, as scribed by Weston Olson RN in my presence and it is both accurate and complete. Weston Olivas RN, am scribing for, and in the presence of, Dr. Nacho Rand and in the presence of the patient. Procedures Procedure Instructions Procedures Plan of care: Risks and benefits of the procedure were discussed at length and informed written consent was obtained.? Time-out completed for verification of correct patient, procedure and site.? Staff present during time-out: Weston Olson RN,? Nacho Rand MD, Daphney Ferrer [facility] Time Out Time__1131 Patient prepped and procedure performed in usual sterile fashion. Risk of injury related to use of Diode laser and/or laser devices? __CR___ ? Serial number of laser used :? [id number] Control panel self test performed, electrical cords in good condition, floor is dry, basin of water available, fire extinguisher in close proximity_CR__ Polycarbonate goggles available and Laser warning signs outside of doors___CR__ Eye protection provided to patient and staff in room_CR___ Use of laser retardant drapes and dull blackened instruments as directed__CR___ Use of nonflammable prep solutions and use of saline soaked sponges to protect tissues as indicated _CR___ Length _26 cm Laser operated by __Dr. Rand Physician verbal confirmation laser locked in place__CR__ Laser start time (date and time) __01/26/2024@_1143 Laser stop time(date and time) __01/26/2024@_1146 Roberts _8.0___ Average laser use __1726 Joules Average laser use__216 seconds Pulse continuous ___CR_? Pulse intermittent ___ Amount of Tumescent used _200cc Evaluated patient for signs and symptoms of electrical injury __CR___ ? Skin clear at insertion site __CR___ Patient tolerated procedure well.? Left leg Coban dressing applied to access site.? Applied Left thigh high leg compression stocking. Will return on 02/05/2024 for Left leg limited venous ultrasound and exam. INacho MD personally performed the services described in this documentation, as scribed by Weston Olson RN in my presence and it is both accurate and complete. I, Weston Olson RN, am scribing for, and in the presence of, Dr. Nacho Rand and in the presence of the patient.
--- NOTE | 2024-01-25 09:32 | P.DS_ITS ---
Discharge Plan Discharge Disposition: Home, Self-Care Outpatient Diagnostics: [facility] Facility EST LMTD (Routine) Timeframe: 2 Weeks Facility: [facility] - Location: [facility] Ordered By: Nacho Rand [facility] EXT Venous LT Limited (Routine) Timeframe: 2 Weeks Facility: [facility] - Location: [facility] Center Ordered By: Nacho Rand Follow Up Appointments: 02/05/2024 Plan of Treatment: f/u evaluation with physician along with left leg limited u/s Patient Instructions: Endovenous Ablation (DC) Print Language: Lithuanian Discharge Date/Time: 01/26/24 11:35
[2024-01-26] MEDS: LIDOCAINE HCL 20 ML, SODIUM BICARBONATE 2 MEQ INJ (11:05)
--- OUTSIDE RECORDS SUMMARY | 2024-01-26 11:06 | XMS_ITS | CCD ---
Author Organization [facility] Care Team Providers Care [employer] Name Role Phone MECHELLE WOMACK Admitting Unavailable [...] DAVE Consulting Unavailable KLYM, CADEN Consulting Unavailable TANILLIRmoi, DR SAMANTHA Stovall Admitting Unavailabl e EUFEMIA, [...] Unavailable EUFEMIA, DR SAMANTHA Stovall Consulting Unavailabl GUI Bess Consulting Unavailable [...] source) bee venom Drug allergy (disorder) [facility] Medications Current Medications Medication Drug Class(es) [...] 12-23-2022 12-23-2022 Other aftercare (1 source) Other correction (current) drug therapy; 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 Normal [facility] ABO AND RH TYPEon 01-11-2022 ABO and Rh group Nom (Bld) ABO Rh Typing B Rh Positive Normal [facility] Comment on above: Performed By: #### A JANELLE #### [facility] [address] [address] [address] Rufino Thomas LIPID PROFILEon 01-11-2022 CHOL-HDL RATIO NORM SEE BELOW Normal [facility] Comment on above: Result Comment: 3.3 - 4.4 LOW RISK 4.4 - 7.1 AVERAGE RISK 7.1 - 11.0 MODERATE RISK >11.0 HIGH RISK Performed By: #### L IPID, CMP #### [facility] [address] [place] [address] Dr. Rufino Thomas Cholesterol [Mass/Vol] 227 mg/dL Critically high <=200 [facility] Comment on above: Performed By: #### L IPID, CMP #### [facility] [address] [address] [address] Rufino Thomas Cholesterol in HDL [Mass/Vol] 63 mg/dL Critically high 40-60 [facility] Comment on above: Performed By: #### L IPID, CMP #### [facility] [address] [address] [address] Rufino Thomas Cholesterol in LDL [Mass/Vol] 151.4 mg/dL Normal [facility] Comment on above: Performed By: #### L IPID, CMP #### [facility] [address] [address] [address] Rufino Thomas Cholesterol.total/ Cholesterol in HDL [Mass ratio] 3.6 {ratio} Normal [facility] Comment on above: Performed By: #### L IPID, CMP #### [facility] [address] [address] [address] Rufino Thomas HDL NORMAL > or = 60 mg/dl - LO W CARDIOVASCULAR RISK <40 mg/dl - HIGH CARDIOVASCULAR RISK Normal [facility] Comment on above: Performed By: #### L IPID, CMP #### [facility] [address] [address] [address] Rufino Thomas LDL CALC NORMAL SEE BELOW Normal [facility] Comment on above: Result Comment: <100 mg/dl OPTIMAL 100 - 129 mg/dl NEAR OR ABOVE OPTIMAL 130 - 159 mg/dl BORDERLINE HIGH 160 - 189 mg/dl HIGH >190 mg/dl VERY HIGH Performed By: #### L IPID, CMP #### [facility] [address] [address] [address] Rufino Thomas Triglyceride [Mass/Vol] 63 mg/dL Normal <=150 [facility] Comment on above: Performed By: #### L IPID, CMP #### [facility] [address] [address] [address] Rufino Thomas VLDL CALC 12.6 mg/dL Normal [facility] Comment on above: Performed By: #### L IPID, CMP #### [facility] [address] [address] [address] Rufino Thomas PROF 14(COMP METB)on 022 Albumin [Mass/Vol] 3.4 g/dL Normal 3.4-5.0 [facility] Comment on above: Performed By: #### L IPID, CMP #### [facility] [address] [place] [address] Dr. Rufino Thomas Albumin/Globulin [Mass ratio] 0.9 {ratio} Normal [facility] Comment on above: Performed By: #### L IPID, CMP #### [facility] [address] [place] [address] Dr. Rufino Thomas ALP [Catalytic activity/Vol] 61 U/L Normal 46-116 [facility] Comment on above: Performed By: #### L IPID, CMP #### [facility] [address] [place] [address] Dr. Rufino Thomas ALT [Catalytic activity/Vol] 41 U/L Normal 14-59 [facility] Comment on above: Performed By: #### L IPID, CMP #### [facility] [address] [place] [address] Dr. Rufino Thomas Anion gap [Moles/Vol] 9.9 mmol/L Normal [facility] Comment on above: Performed By: #### L IPID, CMP #### [facility] [address] [address] [address] Rufino Thomas AST [Catalytic activity/Vol] 30 U/L Normal 15-37 [facility] Comment on above: Performed By: #### L IPID, CMP #### [facility] [address] [address] [address] Rufino Thomas Bilirubin [Mass/Vol] 0.4 mg/dL Normal 0.2-1.0 [facility] Comment on above: Performed By: #### L IPID, CMP #### [facility] [address] [place] [address] Dr. Rufino Thomas Calcium [Mass/Vol] 8.8 mg/dL Normal 8.5-10.1 [facility] Comment on above: Performed By: #### L IPID, CMP #### [facility] [address] [place] [address] Dr. Rufino Thomas Chloride [Moles/Vol] 106 mmol/L Normal 98-107 [facility] Comment on above: Performed By: #### L IPID, CMP #### [facility] [address] [place] [address] Dr. Rufino Thomas CO2 [Moles/Vol] 27.3 mmol/L Normal 21.0-32.0 [facility] Comment on above: Performed By: #### L IPID, CMP #### [facility] [address] [place] [address] Dr. Rufnio Thomas Creatinine [Mass/Vol] 0.71 mg/dL Normal 0.55-1.02 [facility] Comment on above: Performed By: #### L IPID, CMP #### [facility] [address] [place] [address] Dr. Rufino Thomas EGFR-AF WELSH >60 Normal >=60 [facility] Comment on above: Performed By: #### L IPID, CMP #### [facility] [address] [address] [address] Rufino Thomas EGFR-NON AF WELSH >60 Normal >=60 [facility] Comment on above: Performed By: #### L IPID, CMP #### [facility] [address] [address] [address] Rufino Thomas Globulin (S) [Mass/Vol] 3.9 g/dL Normal [facility] Comment on above: Performed By: #### L IPID, CMP #### [facility] [address] [address] [address] Rufino Thomas Glucose [Mass/Vol] 95 mg/dL Normal 74-106 [facility] Comment on above: Performed By: #### L IPID, CMP #### [facility] [address] [place] [address] Dr. Rufino Thomas Potassium [Moles/Vol] 4.2 mmol/L Normal 3.5-5.1 [facility] Comment on above: Performed By: #### L IPID, CMP #### [facility] [address] [place] [address] Dr. Rufino Thomas Protein [Mass/Vol] 7.3 g/dL Normal 6.4-8.2 [facility] Comment on above: Performed By: #### L IPID, CMP #### [facility] [address] [address] [address] Rufino Thomas Sodium [Moles/Vol] 139 mmol/L Normal 136-145 [facility] Comment on above: Performed By: #### L IPID, CMP #### [facility] [address] [place] [address] Dr. Rufino Thomas Urea nitrogen [Mass/Vol] 16.0 mg/dL Normal 7.0-18.0 [facility] Comment on above: Performed By: #### L IPID, CMP #### [facility] [address] [place] [address] Dr. Rufino Thomas Urea nitrogen/Creatinin e [Mass ratio] 22.5 mg/mg Normal [facility] Comment on above: Performed By: #### L IPID, CMP #### [facility] [address], [place] [address] Dr. Rufino Thomas XR ANKLE [place]TON MIN [...] SILVIA MOJICA Date: 2021-10-20 17:48 Normal [facility] H PYLORI TISSUEon 05-19-2021 H PYL TISSUE, UREASE Negative Normal NEGATIVE [facility] Comment on above: Performed By: #### H PYLT #### [facility] [address], [place] [address] Dr. Rufino Thomas [facility] SARS-CoV-2 (COVID-19) RNA GIOVANNY+probe Ql (Unsp spec) Not detected Normal NOT DETECTED [facility] Comment on above: Result Comment: This test is not yet approved or cleared by the [place] FDA. When there are no FDA-approved or cleared tests available, and other criteria are met, FDA can make tests available under an emergency access mechanism called an Emergency Use Authorization (EUA). The EUA for this test is supported by the [place] of Health and Human Service's (HHS's) declaration [...] SARS-CoV-2. Performed By: #### C VDTB #### [facility] [address] [place] [address] [address] Rufino Thomas Covid-19 PCR ([facility])on SARS-CoV-2 (COVID-19) RNA GIOVANNY+probe Ql (Unsp spec) Not detected Normal NOT DETECTED [facility] Comment on above: Result Comment: This test is not yet approved or cleared by the [place] FDA. When there are no FDA-approved or cleared tests available, and other criteria are met, FDA can make tests available under an emergency access mechanism called an Emergency Use Authorization (EUA). The EUA for this test is supported by the [place] of Health and Human Service's (HHS's) declaration [...] SARS-CoV-2. Performed By: #### C VDTB #### [facility] [address] [place] [address] [address] [address] Rufino Thomas US ARNAV DOP LEG [...] BLANQUITA KING Date: 2021-03-06 14:58 Normal [facility] XR KNEE RT 4V or >on 021 XR KNEE RT 4V or > RIGHT KNEE FOUR VIEWS: 03/06/2021 1:44 PM EDT Clinical Data: Pain. No injury Comparison: No previous No evidence of acute fracture or dislocation. [place] thin probable chronic lucencies proximal tibial shaft are relatively well-defined No joint effusion. Infrapatellar fat is preserved. There is some soft tissue density prominence overlying the patella IMPRESSION: 1. Some soft tissue density prominence overlying the patella. Clinical correlation is needed. 2. No evidence of acute fracture or dislocation Electronically authenticated by: CADEN JEWELL Date: 2021-03-06 14:56 Normal [facility] Vital Signs Date Time Vital Sign Value Performing Clinician Nicole alfred 05-08-2023 14:32-0500 Diastolic blood pressure 106 mm[Hg] Jonny Jeffries MD Work Phone: [facility] 05-08-2023 14:32-0500 Heart rate 88 /min Jonny Jeffries MD Work Phone: [facility] 05-08-2023 14:32-0500 Systolic blood pressure 173 mm[Hg] Jonny Jeffries MD Work Phone: [facility] Encounters Encounter Date Encounter Type Care Provider Facility Start: 01-09-2024 End: 01-09-2024 ambulatory TALIB GUTIERRES Not Available Start: 11-06-2023 End: 11-06-2023 ambulatory [facility] Start: 10-30-2023 End: 10-30-2023 ambulatory TEN S RUSHER Not Available Start: 09-20-2023 End: 09-20-2023 ambulatory TEN S RUSHER Not Available Start: 09-05-2023 End: 09-05-2023 ambulatory TEN S RUSHER Not Available Start: 07-18-2023 End: 07-18-2023 ambulatory TALIB GUTIERRES Not Available Start: 05-08-2023 End: 05-08-2023 ambulatory [facility] Start: 05-08-2023 End: 05-08-2023 Office [...] for preprocedural laboratory examination DR SAMANTHA FALL [facility] Start: 05-19-2021 End: 05-19-[address] SAMANTHA [...] Td Vaccines (2 - Td or Tdap) [facility] Start: 05-19-2026 Screening for malignant neoplasm of colon Colonoscopy [facility] Start: 03-10-2024 Tobacco Screening Tobacco Screening [facility] Start: 12-24-2023 Depression Screening Depression Screening [facility] Start: 12-24-2023 Fall Risk Screening Fall Risk Screening [facility] Start: 12-24-2023 Medicare Annual Wellness Visit Medicare Annual Wellness Visit [facility] Start: 12-30-2022 COVID-19 Vaccine ( season) COVID-19 Vaccine ( season) [facility] Start: 12-30-2022 Influenza vaccination Influenza Vaccine [facility] Start: 11-26-2022 Adult BMI Screening Adult BMI Screening [facility] Start: 12-24-2021 Screening for malignant neoplasm of breast Mammogram [facility] Start: 2002 Administration of varicella zoster vaccine Zoster (Shingles) Vaccine (1 of 2) [facility] Immunizations Immunization Date Immunization Notes Care Provider Fa cility 07-11-2020 COVID-19, mRNA, LNP- S, PF, 30mcg/0.3mL Dose Jonny Jeffries MD Work Phone: [facility] 06-20-2020 COVID-19, mRNA, LNP- S, PF, 30mcg/0.3mL Dose Jonny Jeffries MD Work Phone: [facility] 09-20-2018 tetanus toxoid, redu luca diphtheria toxoid, and acellular pertussis vaccine, adsorbed Jonny Jeffries MD Work Phone: [facility] Payers Date Payer Category Payer Medicare [id number] 2019 Private Health Insurance [facility] AARP SUPPLEMENT [id number] 2019-Present [phone] [address] [place] [address] [id number] 2017 Medicare [id number] 1959 Medicare [id number] 1959 Unknown [id number] 1952 Unknown [id number] 2.16.840.1.105713.3.579.2 .593 1952 Unknown [id number] 2.16.840.1.730820.3.579.2 .593 1952 Unknown [id number] 2.16.840.1.464087.3.579.2 .593 1952 Unknown [id number] 2.16.840.1.576821.3.579.2 .593 1952 Unknown [id number] 2.16.840.1.276103.3.579.2 .593 1952 Unknown [id number] 2.16.840.1.137579.3.579.2 .593 1952 Unknown [id number] 2.16.840.1.393477.3.579.2 .593 1952 Unknown [id number] 2.16.840.1.697017.3.579.2 .593 1952 Unknown [id number] 2.16.840.1.651835.3.579.2 .593 1952 Unknown [id number] 2.16.840.1.539181.3.579.2 .1286 1952 Unknown [id number] 2.16.840.1.095286.3.579.2 .1286 1952 Unknown [id number] 2.16.840.1.147500.3.579.2 .125 1952 Unknown [id number] 2.16.840.1.519696.3.579.2 .125 1952 Unknown [id number] 2.16.840.1.512920.3.579.2 .1258 1952 Unknown [id number] 2.16.840.1.524545.3.579.2 .125 1952 Unknown [id number] 2.16.840.1.903423.3.579.2 .1258 1950 Unknown [id number] 2.16.840.1.238107.3.579.2 .1259 Social History Date Type Detail Facility Start: 12-23-2022 Tobacco smoking stat [facility] Never smoked tobacco [facility] Start: 12-23-2022 Tobacco use and exposure Smoke less tobacco non-user [facility] Start: 03-10-2023 End: 05-08-2023 Alcohol intake Current drinker of alcohol (finding) [facility] Start: 10-05-2021 End: 03-10-2023 Alcohol intake [facility] Start: 10-05-2021 End: 12-23-2022 Social connection and isolation panel [facility] Do you belong to any clubs or organizations such as jain groups, unions, fraternal or athletic groups, or school groups? No [facility] Attends Club or Organization Meetings Not on file [facility] Are you now , , , , never or living with a partner? Never [facility] How often to you hav e a drink containing alcohol? 4 or more times a week [facility] How many standard dr inks containing alcohol do you have on a typical day? 1 or 2 [facility] How often do you hav e 6 or more drinks on 1 occasion? Never [facility] How hard is it for y ou to pay for the very basics like food, housing, medical care, and heating Somewhat hard [facility] Do you feel stress - tense, restless, nervous, or anxious, or unable to sleep at night because your mind is troubled all the time - these days [OSQ] Very much [facility] Start: 10-05-2021 Education 19 [facility] Start: 09-09-2020 Alcohol Comment alot weekly [facility] Start: 1950 Sex Assigned At Not on file [facility] History of Present illness Narrative 05-08-2023 Jonny [...] in the morning. [facility]-25-2023 Telephone Encounter - Hanna [...] Ambien? Please advise documented in this encounter [facility] Telephone encounter Note 04-25-2023 Telephone Encounter [...] section and content) DATE CREATED AUTHOR 01/26/2022 [facility] DATE CREATED AUTHOR AUTHOR'S ORGANIZ ATION 02/22/2022 [facility] DATE CREATED AUTHOR AUTHOR'S ORGANIZ ATION 11/14/2023 [facility] DATE CREATED AUTHOR AUTHOR'S ORGANIZ ATION 01/11/[address] [facility] dical Specialists EPIC Care Teams (unrecognized sec tion and content) [employer] Relationship Specialty Start Date End Date Jonny Jeffries MD [address] [place] [address], [address] [place] [address] PCP - General Pediatrics 01/20/20 [employer] Ski [employer] Relationship Specialty Start Date End Date Jonny Jeffries MD [address] [place] [address], [address] [place], [place] [id number] PCP - General Pediatrics 01/20/20 Reason for [...] BE BASED ON THE PRIMARY CLINICAL RECORDS. [facility] [employer] [facility]. provides no warranty or guarantee of the accuracy or completeness of information in this document.
--- NOTE | 2024-01-26 11:09 | VEIN_ITS ---
[address] [address] Patient Name: CARLOS ABEL MRN: [id number] date: 1950 Sex: F Assigned Patient Location: Current Patient Location: Accession/Order Number: [id number] Exam Date: 01/26/2024 11:13 Report Date: 01/26/2024 12:07 At the request of: HUY HOYOS Procedure: VC Endovenous Ablation 1VeinLT EXAMINATION: VC Endovenous Ablation 1VeinLT HISTORY: I83.813 - Varicose veins of bilateral lower extremities w... The risks and benefits of the procedure had been previously discussed, and were rediscussed at length. Informed written consent was obtained. Weston Olson RN and Daphney Delarosa RDMS assisted. Time out procedure was performed. The left lower extremity was prepared and draped in the usual sterile fashion to allow knee flexion in the sterile field. Duplex ultrasound probe was draped in a sterile cover, sterile transmission gel was used. Venous mapping was performed with the areas of dilation and large tributaries marked. The total length was 26 cm from the entry 3 cm above the calf to 3 cm below the Saphenopopliteal junction. The diameter of the left small saphenous vein ranged from 5.5 mm. A 30 gauge needle and 1% buffered lidocaine was used to anesthetize the entry site. A 4 mm incision was made with a scalpel and the saphenous vein was entered percutaneously under direct ultrasound guidance with a micropuncture set, a single stick was successful in gaining access. A micro-guide wire was inserted and the needle removed. A micro-set including a dilator was inserted over the microwire and the needle and dilator were removed. A guide wire was inserted through the micro-set and guided through the saphenous vein to the saphenofemoral junction. The dilator was removed and an introducer sheath was inserted over the wire until the end of the sheath entered the saphenofemoral junction. The dilator and wire were removed and the 600 micron fiber was introduced and placed and positioned so that it extended beyond the sheath and was 3 cm distal to the saphenofemoral or saphenopopliteal junction. Final position of the fiber was determined by ultrasound guidance and duplex imaging. Tumescent anesthetic was delivered by ultrasound guidance. 200 cc of fluid was delivered along the entire course of the saphenous vein. The solution consisted of 1000 cc of normal saline with 40 mL of 1% lidocaine and 20 mL of sodium bicarbonate. A final positioning check was made. The energy source was turned on by means of the foot pedal and the fiber and sheath were withdrawn. The total number of Joules delivered was 2726. The laser was active for 216 seconds under continuous pulse, average laser use of 8 J. Laser start time: 11:43 AM Laser stop time: 11:46 AM Date: 01/26/2024. A duplex ultrasound revealed compressibility and flow at the saphenofemoral junction immediately after the procedure. Hemostasis at the access site was achieved. The skin incision of the saphenous vein was closed with a 4 x 4. A compression stocking was applied. Postop instructions were given. A follow up appointment was recommended and scheduled. The patient tolerated the procedure well. Electronically authenticated by: SILVIA MOJICA Date: 01/26/2024 12:07
[2024-01-26 11:11] VITALS: BP 107/66; PULSE 75; O2SAT 98
== END 2024-01-26 11:35 | disposition home or self-care (01) ==
LOC: VC 11:03
PROVIDERS: PCP Radiology Diagnostic Radiology; Visit Provider Radiology Diagnostic Radiology
DX: I83.813 Varicose veins of bilateral lower extremities with pain (principal)
CPT/HCPCS: 36478

== ENCOUNTER 2024-02-05 14:54 | Outpatient (OUT) | payer MEDICARE, SELFPAY ==
--- NOTE | 2024-02-05 15:00 | VEIN_ITS ---
Patient Name: CARLOS ABEL MR#: [id number] : 1950 Exam Date: 02/05/2024 Ordering Doctor: DR SILVIA MOJICA M.D. RADIOLOGY REPORT PROCEDURE: [facility] - OFFICE VISIT FOLLOW UP COMPARISON: [facility], 01/15/2024. PROGRESS NOTES: The patient reports no significant problems following intravenous laser ablation of the left small saphenous vein. The patient has worn compression stockings. The patient did not require oral analgesics. Physical exam demonstrates no erythema or warmth to suggest cellulitis or thrombophlebitis. No active ulceration. Bilateral patent varicose veins reticular and spider veins. The small saphenous vein cannot be definitively be palpated Review of the ultrasound performed the same day demonstrates occlusive thrombus extending throughout the treated left small saphenous vein with heat induced thrombus 2.6 cm in the saphenopopliteal junction. No deep vein thrombus. The patient expressed a desire to proceed with treatment of incompetent varicose veins with micro foam chemical ablation. [facility] IMPRESSION: 1. Successful ablation of the left small saphenous vein 2. Persistent bilateral incompetent varicose veins. PLAN: Micro foam chemical ablation incompetent varicose veins Nurse notes, history and physical were reviewed and confirmed, see attached forms. The nurse was present throughout the physical exam and consultation Dictated by: Daljit Clemens MD on 02/05/2024 at 15:39 Approved by: Daljit Clemens MD on 02/05/2024 at 15:41
--- NOTE | 2024-02-05 15:00 | VEIN_ITS ---
Patient Name: CARLOS ABEL MR#: [id number] : 1950 Exam Date: 02/05/2024 Ordering Doctor: DR SILVIA MOJICA M.D. RADIOLOGY REPORT PROCEDURE: VC EXT VENOUS LT LIMITED COMPARISON: VC EXT VENOUS LT LIMITED, 01/15/2024. INDICATIONS: I80.02 - Phlebitis and thrombophlebitis of superficial veins left leg TECHNIQUE: Lower extremity morris scale and Duplex Doppler evaluation of the deep venous system from the inguinal ligament through the calf veins. FINDINGS: REGION: Left lower extremity. THROMBI: Negative for DVT. Heat induced thrombus in left SSV 2.6 cm from SPJ and extends to distal lower leg. COMPRESSIBILITY: Non-compressible segments corresponding to thrombus FLOW: Areas of no flow corresponding to thrombus OTHER: CONCLUSION: Post ablation occlusion of the left small saphenous vein with heat induced thrombus 2.6 cm from the saphenopopliteal junction. Dictated by: Daljit Clemens MD on 02/05/2024 at 15:35 Approved by: Daljit Clemens MD on 02/05/2024 at 15:39
--- OUTSIDE RECORDS SUMMARY | 2024-02-05 15:09 | XMS_ITS | CCD ---
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 Name Role Phone MECHELLE WOMACK Admitting Unavailable MECHELLE WOMACK Attending Unavailable KEVESTHEATHER, DR JONNY Pro Primary Care Unavailable Keyona, DR Griffith Consulting Unavailable SHANTA, MECHELLE Overton Consulting Unavailable KEVESTAND, DR JONNY Pro Admitting Unavailable HIESTAND, DR JONNY Pro Attending Unavailable HIESTAND, DR JONNY Pro Primary Care Unavailable HIESTAND, DR JONNY Pro Consulting Unavailable HIESTAND, DR JONNY Pro Admitting Unavailable HIESTAND, DR JONNY Pro Attending Unavailable HIESTAND, DR JONYN Pro Primary Care Unavailable HIESTAND, DR JONNY Pro Consulting Unavailable HIESTAND, DR JONNY Pro Primary Care Unavailable DAVE MEJÍA Admitting Unavailable ALFONZO, DAVE Attending Unavailable POLICARO, BLANQUITA Consulting Unavailable ALFONZO, DAVE Consulting Unavailable KLYM, CADEN Consulting Unavailable EUFEMIA, DR SAMANTHA Stovall Admitting Unavailalla FALL, DR SAMANTHA Stovall Attending Unavailabl e KEVESTAND, DR JONNY Pro Primary Care Unavailable EUFEMIA, DR SAMANTHA Stovall Consulting UnavailMECHELLE Rhoades Admitting Unavailable MECHELLE WOMACK Attending Unavailable MERVIN, DR JONNY Pro Primary Care Unavailable MECHELLE WOMACK Admitting Unavailable MECHELLE WOMACK Attending Unavailable KEVESTHEATHER, DR JONNY Pro Primary Care Unavailable EUFEMIA, DR SAMANTHA Stovall Admitting Unavailabl e EUFEMIA, DR SAMANTHA Stovall Attending Unavailabl e KVEESTHEATHER, DR JONNY Pro Primary Care Unavailable EUFEMIA, DR SAMANTHA Stovall Consulting UnavailGUI [place] Consulting Unavailable MECHELLE WOMACK Admitting Unavailable MECHELLE WOMACK Attending Unavailable KEVESTHEATHER, DR JONNY Pro Primary Care Unavailable Jonny Jeffries MD Primary Care Provider JONNY JEFFRIES Attending Unavailable JONNY JEFFRIES Referring Unavailable MERVIN, JONNY Pro Primary Care Unavailable JONNY JEFFRIES Attending Unavailable JONNY JEFFRIES Referring Unavailable JONNY JEFFRIES Primary Care Unavailable TALIB GUTIERRES Attending Unavailable TALIB GUTIERRES Referring Unavailable TEN GREENE Attending Unavailable TEN GREENE Attending Unavailable TEN GREENE Attending Unavailable TALIB GUTIERRES Attending Unavailable Allergies Allergy Classification Reported Allergen(s) Allergy Type Date of Onset Reaction(s) Facility (1 source) bee venom Drug allergy (disorder) [facility] Repository Medications Current Medications Medication Drug Class(es) Dates Sig (Normalized) Sig (Original) ibuprofen 800 mg oral tablet (4 sources) Nonsteroidal Anti-inflammatory Drug Start: 02-24-2023 End: 05-08-2023 take 1 tablet by mouth every eight hours as needed for pain ibuprofen (MOTRIN) 800 mg tablet Take 1 tablet (800 mg total) by mouth every 8 (eight) hours as needed for pain. 90 tablet 2 05/08/2023 Active losartan potassium 50 mg oral tablet (2 sources) Angiotensin 2 Receptor Campos Start: 12-25-2023 take 1 tablet by mouth in the morning losartan (COZAAR) 50 mg tablet Indications: Primary hypertension take 1 tablet by mouth in the morning 30 tablet 12/25/2023 Active Start: 05-08-2023 take 1 tablet by nithin th in the morning losartan (COZAAR) 50 mg tablet Indications: Primary hypertension Take 1 tablet (50 mg total) by mouth in the morning. 90 tablet 1 05/08/2023 Active multivit-min/ferrous fumarat e (MULTI VITAMIN ORAL) (3 sources) multivit-min/augustus aston fumarate (MULTI VITAMIN ORAL) Take by mouth daily. Active multivit-min/augustus aston fumarate (MULTI VITAMIN ORAL) Take by mouth daily. 0 Active sertraline 50 mg oral tablet (4 sources) Serotonin Reuptake Inhibitor Start: 04-02-2020 End: 01-31-2024 take 1 tablet by mouth in the morning sertraline (ZOLOFT) 50 mg tablet Take 1 tablet (50 mg total) by mouth in the morning. 90 tablet 01/31/2024 Active zolpidem tartrate 10 mg oral tablet (1 source) gamma-Aminobutyri c Acid-ergic Agonist Start: 04-27-2023 take 1 tablet [...] WITHOUT ESOPHAGITIS] Onset: 04-29-2021 Chronic Essential hypertension (11 sources) Essential (primary) hypertension; Translations: [Hypertensive disorder] Onset: 10-01-2020 Chronic Gastritis and duodenitis (1 source) Unspecified chronic gastritis without bleeding; Translations: [UNS CHRONIC GASTRITIS W/O BLEEDING] Onset: 05-24-2021 Chronic Mood disorders (3 sources) Depressive disorder; Translations: [Depression] 10-01-2020 Chronic [...] UNSPECIFIED] Onset: 04-29-2021 Chronic Residual codes; unclassified (3 sources) Obstructive sleep apnea syndrome; Translations: [Obstructive [...] Date Documented Da te Episodic/Chronic Mood disorders (3 sources) Mood disorders Onset: 12-23-2022 12-23-2022 Other aftercare (1 source) Other usp (current) drug therapy; Translations: [OTH DETENTION CURRENT DRUG THERAPY] Onset: 05-24-2021 Episodic Other [...] Range Facil ity 36on 01-12-2022 36 Coordinator marcial d with the patient her use of [...] ABO Rh Typing B Rh Positive Normal [facility] Comment on above: Performed By: #### A JANELLE #### [facility] [address] [place] [address] Dr. Rufino hTomas LIPID PROFILEon 01-11-2022 CHOL-HDL RATIO NORM SEE BELOW Normal [facility] Comment on above: Result Comment: 3.3 - 4.4 LOW RISK 4.4 - 7.1 AVERAGE RISK 7.1 - 11.0 MODERATE RISK >11.0 HIGH RISK Performed By: #### L IPID, CMP #### [facility] [address] [address] [address] Rufino Thomas Cholesterol [Mass/Vol] 227 mg/dL Critically high <=200 [facility] Comment on above: Performed By: #### L IPID, CMP #### [facility] [address] [address] [address] Rufino Thomas Cholesterol in HDL [Mass/Vol] 63 mg/dL Critically high 40-60 [facility] Comment on above: Performed By: #### L IPID, CMP #### [facility] [address] [address] [address] Rufino Thomas Cholesterol in LDL [Mass/Vol] 151.4 mg/dL Normal [facility] Comment on above: Performed By: #### L IPID, CMP #### [facility] [address] [address] [address] Rufino Thomas Cholesterol.total/ Cholesterol in HDL [Mass ratio] 3.6 {ratio} Normal [facility] Comment on above: Performed By: #### L IPID, CMP #### [facility] [address] [address] [address] Rufino Thomas HDL NORMAL > or = 60 mg/dl - LO W CARDIOVASCULAR RISK <40 mg/dl - HIGH CARDIOVASCULAR RISK Normal [facility] Comment on above: Performed By: #### L IPID, CMP #### [facility] [address] [place] [address] Dr. Rufino Thomas LDL CALC NORMAL SEE BELOW Normal [facility] Comment on above: Result Comment: <100 mg/dl OPTIMAL 100 - 129 mg/dl NEAR OR ABOVE OPTIMAL 130 - 159 mg/dl BORDERLINE HIGH 160 - 189 mg/dl HIGH >190 mg/dl VERY HIGH Performed By: #### L IPID, CMP #### [facility] [address] [place] [address] Dr. Rufino Thomas Triglyceride [Mass/Vol] 63 mg/dL Normal <=150 [facility] Comment on above: Performed By: #### L IPID, CMP #### [facility] [address] [address] [address] Rufino Thomas VLDL CALC 12.6 mg/dL Normal [facility] Comment on above: Performed By: #### L IPID, CMP #### [facility] [address] [place] [address] Dr. Rufino Thomas PROF 14(COMP METB)on 022 Albumin [Mass/Vol] 3.4 g/dL Normal 3.4-5.0 [facility] Comment on above: Performed By: #### L IPID, CMP #### [facility] [address] [place] [address] Dr. Rufino Thomas Albumin/Globulin [Mass ratio] 0.9 {ratio} Normal [facility] Comment on above: Performed By: #### L IPID, CMP #### [facility] [address] [place] [address] Dr. Rufino Thomas ALP [Catalytic activity/Vol] 61 U/L Normal 46-116 [facility] Comment on above: Performed By: #### L IPID, CMP #### [facility] [address] [place] [address] Dr. Rufino Thomas ALT [Catalytic activity/Vol] 41 U/L Normal 14-59 [facility] Comment on above: Performed By: #### L IPID, CMP #### [facility] [address] [address] [address] Rufino Thomas Anion gap [Moles/Vol] 9.9 mmol/L Normal [facility] Comment on above: Performed By: #### L IPID, CMP #### [facility] [address] [address] [address] Rufino Thomas AST [Catalytic activity/Vol] 30 U/L Normal 15-37 [facility] Comment on above: Performed By: #### L IPID, CMP #### [facility] [address] [address] [address] Rufino Thomas Bilirubin [Mass/Vol] 0.4 mg/dL Normal 0.2-1.0 [facility] Comment on above: Performed By: #### L IPID, CMP #### [facility] [address] [place] [address] Dr. Rufino Thomas Calcium [Mass/Vol] 8.8 mg/dL Normal 8.5-10.1 [facility] Comment on above: Performed By: #### L IPID, CMP #### [facility] [address] [address] [address] Rufino Thomas Chloride [Moles/Vol] 106 mmol/L Normal 98-107 [facility] Comment on above: Performed By: #### L IPID, CMP #### [facility] [address] [address] [address] Rufino Thomas CO2 [Moles/Vol] 27.3 mmol/L Normal 21.0-32.0 [facility] Comment on above: Performed By: #### L IPID, CMP #### [facility] [address] [address] [address] Rufino Thomas Creatinine [Mass/Vol] 0.71 mg/dL Normal 0.55-1.02 [facility] Comment on above: Performed By: #### L IPID, CMP #### [facility] [address] [address] [address] Rufino Thomas EGFR-AF [place]ER >60 Normal >=60 [facility] Comment on above: Performed By: #### L IPID, CMP #### [facility] [address] [address] [address] Rufino Thomas EGFR-NON AF [place] >60 Normal >=60 [facility] Comment on above: Performed By: #### L IPID, CMP #### [facility] [address] [address] [address] Rufino Thomas Globulin (S) [Mass/Vol] 3.9 g/dL Normal [facility] Comment on above: Performed By: #### L IPID, CMP #### [facility] [address] [place] [address] Dr. Rufino Thomas Glucose [Mass/Vol] 95 mg/dL Normal 74-106 [facility] Comment on above: Performed By: #### L IPID, CMP #### [facility] [address] [place] [address] Dr. Rufino Thomas Potassium [Moles/Vol] 4.2 mmol/L Normal 3.5-5.1 [facility] Comment on above: Performed By: #### L IPID, CMP #### [facility] [address] [place] [address] Dr. Rufino Thomas Protein [Mass/Vol] 7.3 g/dL Normal 6.4-8.2 [facility] Comment on above: Performed By: #### L IPID, CMP #### [facility] [address] [place] [address] Dr. Rufino Thomas Sodium [Moles/Vol] 139 mmol/L Normal 136-145 [facility] Comment on above: Performed By: #### L IPID, CMP #### [facility] [address] [place] [address] Dr. Rufino Thomas Urea nitrogen [Mass/Vol] 16.0 mg/dL Normal 7.0-18.0 [facility] Comment on above: Performed By: #### L IPID, CMP #### [facility] [id number] Rufino Thomas Urea nitrogen/Creatinin e [Mass ratio] 22.5 mg/mg Normal [facility] Comment on above: Performed By: #### L IPID, CMP #### [facility] [id number] Rufino Thomas XR ANKLE MILTON MIN [...] Date: 2021-10-20 17:48 Normal [facility] H PYLORI TISSUEon 05-19-2021 H PYL TISSUE, UREASE Negative Normal NEGATIVE [facility] Comment on above: Performed By: #### H PYLT #### [facility] [id number] Rufino Thomas Covid-19 PCR (CVDTB)on 05-01 SARS-CoV-2 (COVID-19) RNA GIOVANNY+probe Ql (Unsp spec) Not detected Normal NOT DETECTED [facility] Comment on above: Result Comment: This test is not yet approved or cleared by the [place] FDA. When there are no FDA-approved or cleared tests available, and other criteria are met, FDA can make tests available under an emergency access mechanism called an Emergency Use Authorization (EUA). The EUA for this test is supported by the [place] of Health and Human Service's (HHS's) declaration [...] By: #### C VDTB #### [facility] [address] [place] [address] Dr. Rufino Thomas Covid-19 PCR ([facility])on SARS-CoV-2 (COVID-19) RNA GIOVANNY+probe Ql (Unsp spec) Not detected Normal NOT DETECTED [facility] Comment on above: Result Comment: This test is not yet approved or cleared by the [place] FDA. When there are no FDA-approved or cleared tests available, and other criteria are met, FDA can make tests available under an emergency access mechanism called an Emergency Use Authorization (EUA). The EUA for this test is supported by the [place] of Health and Human Service's (HHS's) declaration [...] By: #### C VDTB #### [facility] [address] [place] [address] [id number] [address] Rufino Thomas US ARNAV DOP LEG [...] Date: 2021-03-06 14:58 Normal [facility] XR KNEE RT 4V or >on 021 XR KNEE RT 4V or > RIGHT KNEE FOUR VIEWS: 03/06/2021 1:44 PM EDT Clinical Data: Pain. No injury Comparison: No previous No evidence of acute fracture or dislocation. [place] thin probable chronic lucencies proximal tibial shaft are relatively well-defined No joint effusion. Infrapatellar fat is preserved. There is some soft tissue density prominence overlying the patella IMPRESSION: 1. Some soft tissue density prominence overlying the patella. Clinical correlation is needed. 2. No evidence of acute fracture or dislocation Electronically authenticated by: CADEN JEWELL Date: 2021-03-06 14:56 Normal [facility] Vital Signs Date Time Vital Sign Value Performing Clinician Nicole alfred 05-08-2023 14:32-0500 Diastolic blood pressure 106 mm[Hg] Jonny Jeffries MD Work Phone: [facility] 05-08-2023 14:32-0500 Heart rate 88 /min Jonny Jeffries MD Work Phone: [facility] 05-08-2023 14:32-0500 Systolic blood pressure 173 mm[Hg] Jonny Jeffries MD Work Phone: [facility] Encounters Encounter Date Encounter Type Care Provider Facility Start: 01-31-2024 End: 01-31-2024 Refill Bonnie Barbosa [facility] Internal Medicine/Pediatrics Start: 01-09-2024 End: 01-09-2024 ambulatory TALIB GUTIERRES Not Available Start: 11-06-2023 End: 11-06-2023 ambulatory JONNY Pro [facility] Start: 10-30-2023 End: 10-30-2023 ambulatory TEN GREENE Not Available Start: 09-20-2023 End: 09-20-2023 ambulatory TEN GREENE Not Available Start: 09-05-2023 End: 09-05-2023 ambulatory TEN GREENE Not Available Start: 07-18-2023 End: 07-18-2023 ambulatory TALIB GUTIERRES Not Available Start: 05-08-2023 End: 05-08-2023 ambulatory JONNY JEFFRIES [facility] Start: 05-08-2023 End: 05-08-2023 Office outpatient visit 15 minutes [facility] Jeff[facility] Comment on above: Primary hypertension (Primary Dx) Start: 04-25-2023 Telephone encounter Jonny oliva MD Work Phone: [facility] Start: 01-11-2022 End: 01-12-[address] JONNY JEFFRIES Facility:[facility] Start: 10-20-2021 End: 10-21-2021 ambulatory MECHELLE WOMACK Facility:[facility] Start: 05-19-2021 Encounter for preprocedural laboratory examination DR SAMANTHA FALL [facility] Start: 05-19-2021 End: 05-19-[address] [...] Td Vaccines (2 - Td or Tdap) [facility] Start: 05-19-2026 Screening for malignant neoplasm of colon Colonoscopy [facility] Start: 11-05-2024 Tobacco Screening Tobacco Screening [facility] Start: 03-10-2024 Tobacco Screening Tobacco Screening [facility] Start: 12-31-2023 COVID-19 Vaccine () COVID-19 Vaccine () [facility] Start: 12-31-2023 Influenza vaccination Influenza Vaccine [facility] Start: 12-24-2023 Depression Screening Depression Screening [facility] Start: 12-24-2023 Fall Risk Screening Fall Risk Screening [facility] Start: 12-24-2023 Medicare Annual Wellness Visit Medicare Annual Wellness Visit [facility] Start: 12-30-2022 COVID-19 Vaccine () COVID-19 Vaccine () [facility] Start: 12-30-2022 Influenza vaccination Influenza Vaccine [facility] Start: 11-26-2022 Adult BMI Screening Adult BMI Screening [facility] Start: 12-24-2021 Screening for malignant neoplasm of breast Mammogram [facility] Start: 2002 Administration of varicella zoster vaccine Zoster (Shingles) Vaccine (1 of 2) [facility] Immunizations Immunization Date Immunization Notes Care Provider Fa cility 07-11-2020 COVID-19, mRNA, LNP- S, PF, 30mcg/0.3mL Dose Jonny Jeffrise MD Work Phone: [facility] 06-20-2020 COVID-19, mRNA, LNP- S, PF, 30mcg/0.3mL Dose Jonny Jeffries MD Work Phone: [facility] 09-20-2018 tetanus toxoid, redu luca diphtheria toxoid, and acellular pertussis vaccine, adsorbed Jonny Jeffries MD Work Phone: [facility] Payers Date Payer Category Payer Medicare [id number] 2019 Private Health Insurance [facility] SUPPLEMENT [id number] 2019-Present [phone] [address] [place] [address] [id number] 2017 Medicare [id number] 1959 Medicare [id number] 1959 Unknown [id number] 1952 Unknown [id number] [id number] .593 1952 Unknown [id number] [id number] .593 1952 Unknown [id number] 2.16.840.1.190726.3.579.2 .593 1952 Unknown [id number] 2.16.840.1.014112.3.579.2 .593 1952 Unknown [id number] 2.16.840.1.208473.3.579.2 .593 1952 Unknown [id number] 2.16.840.1.044288.3.579.2 .593 1952 Unknown [id number] 2.16.840.1.810704.3.579.2 .593 1952 Unknown [id number] 2.16.840.1.317950.3.579.2 .593 1952 Unknown [id number] 2.16.840.1.753474.3.579.2 .593 1952 Unknown [id number] 2.16.840.1.940623.3.579.2 .1286 1952 Unknown [id number] 2.16.840.1.730717.3.579.2 .1286 1952 Unknown [id number] 2.16.840.1.082693.3.579.2 .1259 1952 Unknown [id number] 2.16.840.1.951821.3.579.2 .9 1952 Unknown [id number] 2.16.840.1.368131.3.579.2 .1258 1952 Unknown [id number] 2.16.840.1.444514.3.579.2 .9 1952 Unknown [id number] 2.16.840.1.063465.3.579.2 .9 1952 Unknown [id number] 2.16.840.1.222011.3.579.2 .1259 Social History Date Type Detail Facility Start: 12-23-2022 Tobacco smoking stat [facility] Never smoked tobacco [facility] Start: 12-23-2022 Tobacco use and exposure Smoke less tobacco non-user [facility] Start: 03-10-2023 End: 11-06-2023 Alcohol intake Current drinker of alcohol (finding) [facility] Start: 10-05-2021 End: 03-10-2023 Alcohol intake [facility] Start: 10-05-2021 End: 12-23-2022 Social connection and isolation panel [facility] Do you belong to any clubs or organizations such as alevism groups, unions, fraternal or athletic groups, or school groups? No [facility] Attends Club or Organization Meetings Not on file [facility] Are you now , , , , never or living with a partner? Never [facility] How often to you hav e a drink containing alcohol? 4 or more times a week [facility] How many standard dr inks containing alcohol do you have on a typical day? 1 or 2 [facility] How often do you hav e 6 or more drinks on 1 occasion? Never [facility] How hard is it for y ou to pay for the very basics like food, housing, medical care, and heating Somewhat hard [facility] Do you feel stress - tense, restless, nervous, or anxious, or unable to sleep at night because your mind is troubled all the time - these days [OSQ] Very much [facility] Start: 10-05-2021 Education 19 [facility] Start: 09-09-2020 Alcohol Comment alot weekly [facility] Start: 1950 Sex Assigned At Not on file P [facility] Note 01-31-2024 Telephone Encounter - Bonnie Barbosa CMA - 01/31/2024 9:48 AM EDT Note Date & Type Note Facility 01-31-2024 Miscellaneous Notes Formattin g of this note might be different from the original. Refill request documented in this encounter [facility] Telephone encounter Note 01-31-2024 Telephone Encounter - Bonnie Barbosa CMA - 01/31/2024 9:48 AM EDT Note Date & Type Note Facility 01-31-2024 Telephone encount er Note Refill request [facility] History of Present illness Narrative 05-08-2023 Jonny [...] in the morning. documented in this encounter [facility] Note 04-25-2023 Telephone Encounter - Hanna Alan [...] Ambien? Please advise documented in this encounter [facility] Telephone encounter Note 04-25-2023 Telephone Encounter - [...] she could get some Ambien? Please advise [facility] Evaluation note Note Date & Type Note Facility Evaluation note Diagnosis Primary hypertension- Primary Unspecified essential hypertension documented in this encounter [facility] Instructions Note Date & Type Note [...] section and content) DATE CREATED AUTHOR 01/26/2022 [facility] DATE CREATED AUTHOR AUTHOR'S ORGANIZ ATION 02/22/2022 [facility] DATE CREATED AUTHOR AUTHOR'S ORGANIZ ATION 11/14/2023 [facility] DATE CREATED AUTHOR AUTHOR'S ORGANIZ ATION 01/11/2024 [facility] Care Teams (unrecognized sec tion and content) 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 Relationship Specialty Start Date End Date Jonny Jeffries MD [address] [place] [address], [address] [place] [address] PCP - General Pediatrics 01/20/20 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 Relationship Specialty Start Date End Date Jonny Jeffries MD [address] [place] [address], [address] [place] [address] PCP - General Pediatrics 01/20/20 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 Relationship Specialty Start Date End Date Jonny Jeffries MD [address] [place] [address], [address] [place] [address] PCP - General Pediatrics 01/20/20 [facility] Nurse - [employer] 08/16/23 Reason for Visit (unrecogniz ed section and content) Reason Comments Hypertension headaches Reason Onset Date Comments Med Refill 01/31/2024 FOR RECORDS PERTAINING TO PATIENTS WHO ARE [...] BE BASED ON THE PRIMARY CLINICAL RECORDS. [employer] [facility]. provides no warranty or guarantee of the accuracy or completeness of information in this document.
--- NOTE | 2024-02-05 16:16 | V.VEINS.HP ---
Vital Signs 02/05/24 16:17 Height 5 ft 7 in Weight 81 kg BMI 28.0 Varicose Veins Patient in this day for EVLT of left SSV Nacho Olivas MD personally performed the services described in this documentation, as scribed by Weston Olson RN in my presence and it is both accurate and complete. Weston Olivas RN, am scribing for, and in the presence of, Dr. Nacho Rand and in the presence of the patient.. thigh: bilateral (bilateral leg varicosities), knee: bilateral, calf: bilateral, ankle: bilateral and blake: bilateral aching, cramping and dull 3 1 year Worsened in recent months: Yes standing and walking analgesics (Ibuprofen 800mg), elevating extremities and compression stockings Reports muscle spasms of leg, bruising, fatigue, heaviness, restless legs and edema History of lower extremity trauma: No Superficial thrombophlebitis: No Family history of varicose veins: yes Has patient had previous lower extremity venous surgery: Yes Patient has previously received the following treatment(s) for lower extremity varicose veins: Reports vein ablation, sclerotherapy and foam therapy Does patient have a history of : no Does patient intend to have future pregnancies: no Has patient had lower extremity venous scan with relux testing: Yes Support hose used: Yes Problems walking or doing physical activity: Yes How does it affect you: often have to stop, rest, and elevate feet Do you walk much: Yes Do you stand much: Yes Bleeding signs: prolonged bleeding and excessive bruising Review of Systems ROS Narrative Nacho Olivas MD personally performed the services described in this documentation, as scribed by Weston Olson RN in my presence and it is both accurate and complete. Weston Olivas RN, am scribing for, and in the presence of, Dr. Nacho Rand and in the presence of the patient. Status of ROS 10 or more systems reviewed and unremarkable except as noted in history and below Cardiovascular Reports: edema Integumentary/Breast Reports: redness, skin pain, skin tenderness, skin swelling, new lesion and changes in skin color Neurological Reports: numbness in extremities and weakness in extremities Hematologic/Lymphatic Reports: easy bruising and easy bleeding [facility] Medical History (Updated 01/15/24 @ 09:03 by Daphney Ferrer) Phlebitis and thrombophlebitis of superficial vessels of left lower extremity ?I80.02 - Phlebitis and thrombophlebitis of superficial vessels of left lower extremity (ICD-10) Cellulitis ?L03.90 - Cellulitis, unspecified (ICD-10) Left knee injury ?S89.92XA - Unspecified injury of left lower leg, initial encounter (ICD-10) Varicose veins of bilateral lower extremities with pain ?I83.813 - Varicose veins of bilateral lower extremities with pain (ICD-10) Surgical History (Updated 01/26/24 @ 11:30 by Weston Olson) Status post laser ablation of incompetent vein ?Z98.890 - Other specified postprocedural states (ICD-10) Status post laser ablation of incompetent vein ?Z98.890 - Other specified postprocedural states (ICD-10) Status post sclerotherapy of varicose veins ?Z98.890 - Other specified postprocedural states (ICD-10) ?Z86.79 - Personal history of other diseases of the circulatory system (ICD-10) History of right hip replacement ?Z96.641 - Presence of right artificial hip joint (ICD-10) Family History (Updated 11/27/23 @ 07:32 by Weston Olson) Other Family history of COPD (chronic obstructive pulmonary disease) Heart disease Varicose veins of bilateral lower extremities with pain Social History (Updated 11/27/23 @ 07:31 by Weston Olson) Within the past year, how often did you have a drink containing alcohol: 2-3 times a week Smoking status: Never smoker Non-prescribed substance use: denies use Meds Home Medications and Allergies Home Medications ?Medication ?Instructions ?Recorded ?Confirmed ?Type ibuprofen 800 mg tablet 800 mg PO DAILY 02/21/23 02/21/23 History sertraline 50 mg tablet (Zoloft) 50 mg PO DAILY 02/21/23 02/21/23 History losartan .ROUTE 11/27/23 History Allergies Allergy/AdvReac Type Severity Reaction Status Date / Time No Known Drug Allergies Allergy Verified 11/27/23 07:30 Exam Narrative Exam Narrative: INacho MD personally performed the services described in this documentation, as scribed by Weston Olson RN in my presence and it is both accurate and complete. I, Weston Olson RN, am scribing for, and in the presence of, Dr. Nacho Rand and in the presence of the patient. Constitutional Documenting provider has reviewed patient's vital signs: yes Common normals: oriented x3 Nutritional appearance: overweight Cardio Peripheral pulses: posterior tibial pulses present and dorsalis pedis pulses present Extremity Common normals: normal capillary refill General: calf tenderness and edema Right lower extremity: lower leg Right lower leg: inspection and palpation Left lower extremity: lower leg Left lower leg: inspection and palpation Other: Multiple open areas of wound noted to bilateral legs Nacho Olivas MD personally performed the services described in this documentation, as scribed by Weston Olson RN in my presence and it is both accurate and complete. IWeston RN, am scribing for, and in the presence of, Dr. Nacho Rand and in the presence of the patient. 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 Daljit Olivas MD personally performed the services described in this documentation, as scribed by Daphney Ferrer RDMS in my presence and it is both accurate and complete. Daphney Olivas RDMS, am scribing for, and in the presence of, Dr. Daljit Clemens and in the presence of the patient. Assessment and Plan Assessment and Plan (1) Phlebitis and thrombophlebitis of superficial vessels of left lower extremity: Plan Plan is for patient to return for Varithena/microfoam of right leg on 02/09/24. Daljit Olivas MD personally performed the services described in this documentation, as scribed by Daphney Ferrer RDMS in my presence and it is both accurate and complete. Daphney Olivas RDMS, am scribing for, and in the presence of, Dr. Daljit Clemens and in the presence of the patient.
[2024-02-05 16:17] VITALS: BMI 28.0
--- NOTE | 2024-02-05 16:19 | P.DS_ITS ---
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
--- NOTE | 2024-02-05 16:19 | W.VEIN ---
Discharge Plan Discharge Disposition: Home, Self-Care Outpatient Diagnostics: VC INJ Foam Sclerosant WUS SOFTWARE DEVELOPER MID LEVEL (Routine) Timeframe: 2 Weeks Facility: [facility] - Location: Vein Center Ordered By: Daljit Clemens Follow Up Appointments: 02/09/24 Plan of Treatment: Varithena/microfoam of right leg Print Language: Kyrgyz Discharge Date/Time: 02/05/24 16:20
== END 2024-02-05 16:20 | disposition home or self-care (01) ==
PROVIDERS: PCP Radiology Diagnostic Radiology; Visit Provider Radiology Diagnostic Radiology
DX: I80.02 Phlebitis and thrombophlebitis of superficial vessels of left lower extremity (principal)
CPT/HCPCS: 93971; G0463

== ENCOUNTER 2024-02-09 09:30 | Outpatient (OUT) | payer MEDICARE, SELFPAY ==
--- NOTE | 2024-02-08 10:24 | VEINCLINIC_ITS ---
Vital Signs 02/09/24 10:24 BP 160/80 H BP Location Right Brachial BP Position Sitting BP Cuff Size Adult BP Source Automatic Cuff Respiration 16 Pulse 70 Pulse Source Monitor Pulse Oximetry (%) 98 Oxygen Delivery Method Room Air Comment The patient's blood pressure is elevated. Varicose Veins Patient in this day for microfoam chemical ablation Daljit Olivas MD personally performed the services described in this documentation, as scribed by Weston Olson RN in my presence and it is both accurate and complete. IWeston RN, am scribing for, and in the presence of, Dr. Daljit Clemens and in the presence of the patient. thigh: bilateral (bilateral leg varicosities), knee: bilateral, calf: bilateral, ankle: bilateral and blake: bilateral aching, cramping and dull 3 1 year Worsened in recent months: Yes standing and walking analgesics (Ibuprofen 800mg), elevating extremities and compression stockings Reports muscle spasms of leg, bruising, fatigue, heaviness, restless legs and edema History of lower extremity trauma: No Superficial thrombophlebitis: No Family history of varicose veins: yes Has patient had previous lower extremity venous surgery: Yes Patient has previously received the following treatment(s) for lower extremity varicose veins: Reports vein ablation, sclerotherapy and foam therapy Does patient have a history of : no Does patient intend to have future pregnancies: no Has patient had lower extremity venous scan with relux testing: Yes Support hose used: Yes Problems walking or doing physical activity: Yes How does it affect you: often have to stop, rest, and elevate feet Do you walk much: Yes Do you stand much: Yes Bleeding signs: prolonged bleeding and excessive bruising Review of Systems ROS Narrative Daljit Olivas MD personally performed the services described in this documentation, as scribed by Weston Olson RN in my presence and it is both accurate and complete. Weston Olivas RN, am scribing for, and in the presence of, Dr. Daljit Clemens and in the presence of the patient. Status of ROS 10 or more systems reviewed and unremark able except as noted in history and below Cardiovascular Reports: edema Integumentary/Breast Reports: redness, skin pain, skin tenderness, skin swelling, new lesion and changes in skin color Neurological Reports: numbness in extremities and weakness in extremities Hematologic/Lymphatic Reports: easy bruising and easy bleeding PFSH PFSH Medical History (Updated 01/15/24 @ 09:03 by Daphney Ferrer) Phlebitis and thrombophlebitis of superficial vessels of left lower extremity ?I80.02 - Phlebitis and thrombophlebitis of superficial vessels of left lower extremity (ICD-10) Cellulitis ?L03.90 - Cellulitis, unspecified (ICD-10) Left knee injury ?S89.92XA - Unspecified injury of left lower leg, initial encounter (ICD-10) Varicose veins of bilateral lower extremities with pain ?I83.813 - Varicose veins of bilateral lower extremities with pain (ICD-10) Surgical History (Updated 02/09/24 @ 10:26 by Weston Olson) Status post laser ablation of incompetent vein ?Z98.890 - Other specified postprocedural states (ICD-10) Status post laser ablation of incompetent vein ?Z98.890 - Other specified postprocedural states (ICD-10) Status post sclerotherapy of varicose veins ?Z98.890 - Other specified postprocedural states (ICD-10) ?Z86.79 - Personal history of other diseases of the circulatory system (ICD- 10) History of right hip replacement ?Z96.641 - Presence of right artificial hip joint (ICD-10) Family History (Updated 11/27/23 @ 07:32 by Weston Olson) Other Family history of COPD (chronic obstructive pulmonary disease) Heart disease Varicose veins of bilateral lower extremities with pain Social History (Updated 11/27/23 @ 07:31 by Weston Olson) Within the past year, how often did you have a drink containing alcohol: 2-3 times a week Smoking status: Never smoker Non-prescribed substance use: denies use Meds Home Medications and Allergies Home Medications ?Medication ?Instructions ?Recorded ?Confirmed ?Type ibuprofen 800 mg tablet 800 mg PO DAILY 02/21/23 02/21/23 History sertraline 50 mg tablet (Zoloft) 50 mg PO DAILY 02/21/23 02/21/23 History losartan .ROUTE 11/27/23 History Allergies Allergy/AdvReac Type Severity Reaction Status Date / Time No Known Drug Allergies Allergy Verified 11/27/23 07:30 Exam Narrative Exam Narrative: I, Daljit Clemens MD personally performed the services described in this documentation, as scribed by Weston Wesley RN in my presence and it is both accurate and complete. I, Weston Olson RN, am scribing for, and in the presence of, Dr. Daljit Clemens and in the presence of the patient. Constitutional Documenting provider has reviewed patient's vital signs: yes Common normals: oriented x3 Nutritional appearance: overweight Cardio Peripheral pulses: posterior tibial pulses present and dorsalis pedis pulses present Extremity Common normals: normal capillary refill General: calf tenderness and edema Right lower extremity: lower leg Right lower leg: inspection and palpation Left lower extremity: lower leg Left lower leg: inspection and palpation Other: Multiple open areas of wound noted to bilateral legs Neuro Common normals: oriented x3 Assessment and Plan Assessment and Plan (1) Varicose veins of bilateral lower extremities with pain: Plan f/u evaluation with physician along with bilateral leg limited u/s Daljit Olivas MD personally performed the services described in this documentation, as scribed by Weston Olson RN in my presence and it is both accurate and complete. I, Weston Olson RN, am scribing for, and in the presence of, Dr. Daljit Clemens and in the presence of the patient. Procedures Procedure Instructions Procedures Bilateral leg microfoam chemical ablation/Varithena: Risks and benefits of the procedure were discussed at length and informed written consent was obtained.? Time-out procedure was performed and the correct patient and procedure were confirmed.? Staff present during time-out: Weston Olson RN and Daljit Clemens MD.? Patient prepped and procedure performed in usual sterile fashion.? Patient was placed in Trendelenburg prior to Polidocanol/Varithena injections. Sclerosing Agent:?? 15cc 1% Polidocanol/Varithena Site Injected: right lecc varithena administered in to a 3mm varicose vein right anterior proximal lower leg 4cc varithena administered in to a 4mm varicose vein right medial proximal lower leg Left lecc varithena administered in to a 5mm varicose vein distal medial left ankle Number of Injections:?3 The patient tolerated the procedure well without complication.? Hemostasis was obtained and thigh-high compression stocking was applied with foam pads.? Ins tructed patient to wear stocking for at least 96 hours and sleep with it and only remove for showering.? The patient was instructed to? wear stocking for 2 weeks.? Patient verbalizes understanding and states they will comply.? Patient was given post-procedure instructions. Patient was discharged in good condition.? Scheduled to undergo limited venous ultrasound and? exam on , Daljit Clemens MD personally performed the services described in this documentation, as scribed by Weston Olson RN in my presence and it is both accurate and complete. I, Weston Olson RN, am scribing for, and in the presence of, Dr. Daljit Clemens and in the presence of the patient.
--- NOTE | 2024-02-08 10:33 | W.VEIN ---
Discharge Plan Discharge Disposition: Home, Self-Care Outpatient Diagnostics: VC Facility EST LMTD (Routine) Timeframe: 2 Weeks Facility: [facility] - Location: Vein Center Ordered By: Daljit Clemens VC EXT Venous MILTON Limited (Routine) Timeframe: 2 Weeks Facility: [facility] - Location: Vein Center Ordered By: Daljit Clemens Follow Up Appointments: 02/13/2024 Plan of Treatment: f/u evaluation with physician along with left leg limited u/s Patient Instructions: Polidocanol (By injection) (Ascjossiea, Harveythena) Print Language: Greek Discharge Date/Time: 02/09/24 10:24
--- NOTE | 2024-02-09 09:31 | VEIN_ITS ---
[address] [address] Patient Name: CARLOS ABEL MRN: [id number] date: 1950 Sex: F Assigned Patient Location: Current Patient Location: Accession/Order Number: [id number] Exam Date: 02/09/2024 09:31 Report Date: 02/09/2024 10:18 At the request of: HUY HOYOS Procedure: VC INJ Foam Sclerosant WUS MACHINE OILER PROCEDURE: VC INJ Foam Sclerosant WUS MACHINE OILER COMPARISON: None. HISTORY: I83.813 - Varicose veins of bilateral lower extremities w... Pre-operative Diagnosis: CEAP class C6 venous insufficiency with pain, tenderness, edema and incompetent left saphenous and varicose vein(s), chronic venous insufficiency left leg secondary to venous incompetence Post-operative Diagnosis: CEAP class C6 venous insufficiency with pain, tenderness, edema and incompetent left saphenous and varicose vein(s), chronic venous insufficiency left leg secondary to venous incompetence Procedure Performed: 1. Ultrasound-guided microfoam chemical ablation with Varithenaregistered 2. Intraoperative ultrasound guidance No charge for the right leg Anesthesia: None Indications for Procedure: 73-year-old female who presents with a long history of lower extremity pain swelling with venous stasis ulcerations and active bleeding. The patient failed conservative medical therapy including medical compression stockings, exercise and analgesics. Prior procedures include intervenous laser ablation and Microfoam chemical ablation. Multiple incompetent varicosities of the left leg. Duplex scan showed reflux and enlarged diameters up to 5 mm. The patient underwent informed consent including management options where the complications of infection, bleeding, pain, and skin injury were discussed. Particular attention was spent discussing thrombus extension and deep vein thrombosis as well as the possibility of pulmonary embolus and treatment with oral or injectable blood thinners. Procedure: The patient walked to the procedure room. All applicable staff donned appropriate apparel. A procedure timeout was performed to confirm correct patient, correct extremity, correct procedure, and correct room set-up including presence of all applicable supplies, devices, and drugs. A duplex ultrasound, performed by myself confirmed the location and incompetence of branch saphenous varicosities and their course was marked on the skin together with the dilated tributaries. The extent of treatment of the vein and the associated varicosities was determined through ultrasound mapping. The skin was prepped and then punctured with a butterfly needle and advanced under ultrasound guidance. The Varithenaregistered canister was activated and the canister was primed and purged as required in the instructions for use. Varithenaregistered was drawn into a sterile syringe. The following injections were made: 4 cc injected into a 3 mm varicose vein right anterior proximal lower leg 4 cc injected into a 4 mm varicose vein right medial proximal lower leg 7 cc injected into a 5 mm varicose vein distal left ankle. Pressure was held to exclude a dehydrating press operator vein in anticipation of foam was observed by ultrasound Varithenaregistered was slowly administered at 0.5-1.0 cc/second with close observation by ultrasound of its course in the vessels. Total volume utilized was: 15cc. Following administration of Varithenaregistered the leg was elevated and the patient was asked to repeatedly dorsiflex the ankle to limit flow of Varithenaregistered into perforating veins. Once appropriate spasm had been confirmed in the treated veins, the vascular catheter was removed from the leg and light pressure was applied over the puncture site for hemostasis. The common femoral and deep superficial veins were then evaluated for flow and compressibility prior to dressing placement. The lower extremity was kept elevated at 45 degrees above the horizontal and cording material was applied over the saphenous segments and tributaries to allow for eccentric compression over the target vessels including the targeted saphenous vein(s). A multilayer dressing was applied consisting of foam pads, coban and thigh-high 20-30 mm Hg compression elastic support hose were placed on the patient. The leg was lowered only after compression had been applied and the patient was immediately ambulatory. The patient ambulated 10 minutes under supervision and was without apparent concerns at time of release. Post-care instructions include advising patient to keep post-treatment bandages in place and dry for 48 hours, avoid extended periods of inactivity, avoid heavy exercise for one week, wear compression stockings on the treated leg continuously for two weeks, to walk daily for 10 minutes over the next month. The patient was instructed to take an anti-inflammatory medicine as needed and to follow up for color duplex scan of the Saphenous veins, the treated branch saphenous varicosities, the adjacent deep veins, and additional treatment within 7 days. PERSONNEL: Weston Olson RN Electronically authenticated by: HUY HOYOS Date: 02/09/2024 10:18
--- OUTSIDE RECORDS SUMMARY | 2024-02-09 09:33 | XMS_ITS | CCD ---
Author Organization [facility] Care Team Providers Care [facility] Supervisor Name Role Phone MECHELLE WOMACK Admitting Unavailable MECHELLE WOMACK Attending Unavailable KEVESTHEATHER, DR JONNY Pro Primary Care Unavailable Keyoan, DR Griffith Consulting Unavailable SHANTA, MECHELLE Overton [...] KEVESTHEATHER, DR JONNY Pro Primary Care Unavailable EUEFMIA, DR SAMANTHA Stovall Admitting Unavailabl e EUFEMIA, DR SAMANTHA Stovall Attending Unavailabl e KEVESTHEATHER, DR JONNY Pro Primary Care Unavailable [...] source) bee venom Drug allergy (disorder) [facility] Repository Medications Current Medications Medication Drug Class(es) [...] 12-23-2022 12-23-2022 Other aftercare (1 source) Other retirement (current) drug therapy; Translations: [OTH [facility] CURRENT DRUG THERAPY] Onset: 05-24-2021 Episodic Other [...] discontinuing Nsaid use for pain control. Normal [facility] ABO AND RH TYPEon 01-11-2022 ABO and Rh group Nom (Bld) ABO Rh Typing B Rh Positive Normal [facility] Comment on above: Performed By: #### A JANELLE #### [facility] [address] [place] [address] Dr. Rufino Thomas LIPID PROFILEon 01-11-2022 CHOL-HDL RATIO NORM SEE BELOW Normal [facility] Comment on above: Result Comment: 3.3 - 4.4 LOW RISK 4.4 - 7.1 AVERAGE RISK 7.1 - 11.0 MODERATE RISK >11.0 HIGH RISK Performed By: #### L IPID, CMP #### [facility] [address] [address] [address] Rufino Thomas Cholesterol [Mass/Vol] 227 mg/dL Critically high <=200 [facility] Comment on above: Performed By: #### L IPID, CMP #### [facility] [address] [address] [address] Rufino Thomas Cholesterol in HDL [Mass/Vol] 63 mg/dL Critically high 40-60 [facility] Comment on above: Performed By: #### L IPID, CMP #### [facility] [address] [address] [address] Rufino Thomas Cholesterol in LDL [Mass/Vol] 151.4 mg/dL Normal [facility] Comment on above: Performed By: #### L IPID, CMP #### [facility] [address] [address] [address] Rufino Thomas Cholesterol.total/ Cholesterol in HDL [Mass ratio] 3.6 {ratio} Normal [facility] Comment on above: Performed By: #### L IPID, CMP #### [facility] [address] [address] [address] Rufino Thomas HDL NORMAL > or = 60 mg/dl - LO W CARDIOVASCULAR RISK <40 mg/dl - HIGH CARDIOVASCULAR RISK Normal [facility] Comment on above: Performed By: #### L IPID, CMP #### [facility] [address] [place] [address] Dr. Rufino Thomas LDL CALC NORMAL SEE BELOW Normal [facility] Comment on above: Result Comment: <100 mg/dl OPTIMAL 100 - 129 mg/dl NEAR OR ABOVE OPTIMAL 130 - 159 mg/dl BORDERLINE HIGH 160 - 189 mg/dl HIGH >190 mg/dl VERY HIGH Performed By: #### L IPID, CMP #### [facility] [address] [place] [address] Dr. Rufino Thomas Triglyceride [Mass/Vol] 63 mg/dL Normal <=150 [facility] Comment on above: Performed By: #### L IPID, CMP #### [facility] [address] [address] [address] Rufino Thomas VLDL CALC 12.6 mg/dL Normal [facility] Comment on above: Performed By: #### L IPID, CMP #### [facility] [address] [place] [address] Dr. Rufino Thomas PROF 14(COMP METB)on 022 Albumin [Mass/Vol] 3.4 g/dL Normal 3.4-5.0 [facility] Comment on above: Performed By: #### L IPID, CMP #### [facility] [address] [place] [address] Dr. Rufino Thomas Albumin/Globulin [Mass ratio] 0.9 {ratio} Normal [facility] Comment on above: Performed By: #### L IPID, CMP #### [facility] [address] [place] [address] Dr. Rufino Thomas ALP [Catalytic activity/Vol] 61 U/L Normal 46-116 [facility] Comment on above: Performed By: #### L IPID, CMP #### [facility] [address] [place] [address] Dr. Rufino Thomas ALT [Catalytic activity/Vol] 41 U/L Normal 14-59 [facility] Comment on above: Performed By: #### L IPID, CMP #### [facility] [address] [address] [address] Rufino Thomas Anion gap [Moles/Vol] 9.9 mmol/L Normal [facility] Comment on above: Performed By: #### L IPID, CMP #### [facility] [address] [address] [address] Rufino Thomas AST [Catalytic activity/Vol] 30 U/L Normal 15-37 [facility] Comment on above: Performed By: #### L IPID, CMP #### [facility] [address] [address] [address] Rufino Thomas Bilirubin [Mass/Vol] 0.4 mg/dL Normal 0.2-1.0 [facility] Comment on above: Performed By: #### L IPID, CMP #### [facility] [address] [place] [address] Dr. Rufino Thomas Calcium [Mass/Vol] 8.8 mg/dL Normal 8.5-10.1 [facility] Comment on above: Performed By: #### L IPID, CMP #### [facility] [address] [address] [address] Rufino Thomas Chloride [Moles/Vol] 106 mmol/L Normal 98-107 [facility] Comment on above: Performed By: #### L IPID, CMP #### [facility] [address] [address] [address] Rufino Thomas CO2 [Moles/Vol] 27.3 mmol/L Normal 21.0-32.0 [facility] Comment on above: Performed By: #### L IPID, CMP #### [facility] [address] [address] [address] Rufino Thomas Creatinine [Mass/Vol] 0.71 mg/dL Normal 0.55-1.02 [facility] Comment on above: Performed By: #### L IPID, CMP #### [facility] [address] [address] [address] Rufino Thomas EGFR-AF ESTONIAN >60 Normal >=60 [facility] Comment on above: Performed By: #### L IPID, CMP #### [facility] [address] [address] [address] Rufino Thomas EGFR-NON AF ESTONIAN >60 Normal >=60 [facility] Comment on above: Performed By: #### L IPID, CMP #### [facility] [address] [address] [address] Rufino Thomas Globulin (S) [Mass/Vol] 3.9 g/dL Normal [facility] Comment on above: Performed By: #### L IPID, CMP #### [facility] [address] [place] [address] Dr. Rufino Thomas Glucose [Mass/Vol] 95 mg/dL Normal 74-106 [facility] Comment on above: Performed By: #### L IPID, CMP #### [facility] [address] [place] [address] Dr. Rufino Thomas Potassium [Moles/Vol] 4.2 mmol/L Normal 3.5-5.1 [facility] Comment on above: Performed By: #### L IPID, CMP #### [facility] [address] [place] [address] Dr. Rufino Thomas Protein [Mass/Vol] 7.3 g/dL Normal 6.4-8.2 [facility] Comment on above: Performed By: #### L IPID, CMP #### [facility] [address] [place] [address] Dr. Rufino Thomas Sodium [Moles/Vol] 139 mmol/L Normal 136-145 [facility] Comment on above: Performed By: #### L IPID, CMP #### [facility] [address] [place] [address] Dr. Rufino Thomas Urea nitrogen [Mass/Vol] 16.0 mg/dL Normal 7.0-18.0 [facility] Comment on above: Performed By: #### L IPID, CMP #### [facility] [id number] Rufino Thomas Urea nitrogen/Creatinin e [Mass ratio] 22.5 mg/mg Normal [facility] Comment on above: Performed By: #### L IPID, CMP #### [facility] [id number] Rufino Thomas XR ANKLE MILTON MIN [...] SILVIA MOJICA Date: 2021-10-20 17:48 Normal [facility] H PYLORI TISSUEon 05-19-2021 H PYL TISSUE, UREASE Negative Normal NEGATIVE [facility] Comment on above: Performed By: #### H PYLT #### [facility] [id number] Rufino Thomas Covid-19 PCR (CVDTB)on 05-01 SARS-CoV-2 (COVID-19) RNA GIOVANNY+probe Ql (Unsp spec) Not detected Normal NOT DETECTED [facility] Comment on above: Result Comment: This test is not yet approved or cleared by the [place] FDA. When there are no FDA-approved or cleared tests available, and other criteria are met, FDA can make tests available under an emergency access mechanism called an Emergency Use Authorization (EUA). The EUA for this test is supported by the [place] of Health and Human Service's (HHS's) declaration [...] SARS-CoV-2. Performed By: #### C VDTB #### [facility] [address] [place] [address] Dr. Rufino Thomas Covid-19 PCR ([facility])on SARS-CoV-2 (COVID-19) RNA GIOVANNY+probe Ql (Unsp spec) Not detected Normal NOT DETECTED [facility] Comment on above: Result Comment: This test is not yet approved or cleared by the [place] FDA. When there are no FDA-approved or cleared tests available, and other criteria are met, FDA can make tests available under an emergency access mechanism called an Emergency Use Authorization (EUA). The EUA for this test is supported by the [place] of Health and Human Service's (HHS's) declaration [...] SARS-CoV-2. Performed By: #### C VDTB #### [facility] [address] [place] [address] [address] [address] Rufino Thomas US ARNAV DOP LEG [...] BLANQUITA KING Date: 2021-03-06 14:58 Normal [facility] XR KNEE RT 4V or >on 021 XR KNEE RT 4V or > RIGHT KNEE FOUR VIEWS: 03/06/2021 1:44 PM EDT Clinical Data: Pain. No injury Comparison: No previous No evidence of acute fracture or dislocation. Holmen thin probable chronic lucencies proximal tibial shaft are relatively well-defined No joint effusion. Infrapatellar fat is preserved. There is some soft tissue density prominence overlying the patella IMPRESSION: 1. Some soft tissue density prominence overlying the patella. Clinical correlation is needed. 2. No evidence of acute fracture or dislocation Electronically authenticated by: CADEN JEWELL Date: 2021-03-06 14:56 Normal [facility] Vital Signs Date Time Vital Sign Value Performing Clinician Nicole alfred 05-08-2023 14:32-0500 Diastolic blood pressure 106 mm[Hg] Jonny Jeffries MD Work Phone: [facility] 05-08-2023 14:32-0500 Heart rate 88 /min Jonny Jeffries MD Work Phone: [facility] 05-08-2023 14:32-0500 Systolic blood pressure 173 mm[Hg] Jonny Jeffries MD Work Phone: [facility] Encounters Encounter Date Encounter Type Care Provider Facility Start: 01-31-2024 End: 01-31-2024 Refill Bonnie Barbosa [facility] Internal Medicine/Pediatrics Start: 01-09-2024 End: 01-09-2024 ambulatory TALIB GUTIERRES Not Available Start: 11-06-2023 End: 11-06-2023 ambulatory JONNY Pro [facility] Start: 10-30-2023 End: 10-30-2023 ambulatory TEN GREENE Not Available Start: 09-20-2023 End: 09-20-2023 ambulatory TEN GREENE Not Available Start: 09-05-2023 End: 09-05-2023 ambulatory TEN GREENE Not Available Start: 07-18-2023 End: 07-18-2023 ambulatory TALIB GUTIERRES Not Available Start: 05-08-2023 End: 05-08-2023 ambulatory JONNY JEFFRIES [facility] Start: 05-08-2023 End: 05-08-2023 Office outpatient visit 15 minutes [facility] Comment on above: Primary hypertension (Primary Dx) Start: 04-25-2023 Telephone encounter Jonny oliva MD Work Phone: [facility] Start: 01-11-2022 End: 01-12-[address] JONNY JEFFRIES Facility:[facility] Start: 10-20-2021 End: 10-21-2021 ambulatory MECHELLE WOMACK Facility:[facility] Start: 05-19-2021 Encounter for preprocedural laboratory examination DR SAMANTHA FALL [facility] Start: 05-19-2021 End: 05-19-[address] SAMANTHA [...] Td Vaccines (2 - Td or Tdap) [facility] Start: 05-19-2026 Screening for malignant neoplasm of colon Colonoscopy [facility] Start: 11-05-2024 Tobacco Screening Tobacco Screening [facility] Start: 03-10-2024 Tobacco Screening Tobacco Screening [facility] Start: 12-31-2023 COVID-19 Vaccine () COVID-19 Vaccine () [facility] Start: 12-31-2023 Influenza vaccination Influenza Vaccine [facility] Start: 12-24-2023 Depression Screening Depression Screening [facility] Start: 12-24-2023 Fall Risk Screening Fall Risk Screening [facility] Start: 12-24-2023 Medicare Annual Wellness Visit Medicare Annual Wellness Visit [facility] Start: 12-30-2022 COVID-19 Vaccine () COVID-19 Vaccine () [facility] Start: 12-30-2022 Influenza vaccination Influenza Vaccine [facility] Start: 11-26-2022 Adult BMI Screening Adult BMI Screening [facility] Start: 12-24-2021 Screening for malignant neoplasm of breast Mammogram [facility] Start: 2002 Administration of varicella zoster vaccine Zoster (Shingles) Vaccine (1 of 2) [facility] Immunizations Immunization Date Immunization Notes Care Provider Fa cility 07-11-2020 COVID-19, mRNA, LNP- S, PF, 30mcg/0.3mL Dose Jonny Jeffries MD Work Phone: [facility] 06-20-2020 COVID-19, mRNA, LNP- S, PF, 30mcg/0.3mL Dose Jonny Jeffries MD Work Phone: [facility] 09-20-2018 tetanus toxoid, redu luca diphtheria toxoid, and acellular pertussis vaccine, adsorbed Jonny Jeffries MD Work Phone: [facility] Payers Date Payer Category Payer Medicare [id number] 2019 Private Health Insurance [facility] SUPPLEMENT [id number] 2019-Present [phone] [address] [place] [address] [id number] 2017 Medicare [id number] 1959 Medicare [id number] 1959 Unknown [id number] 1952 Unknown [id number] [id number] .593 1952 Unknown [id number] 2.16.840.1.035344.3.579.2 .593 1952 Unknown [id number] 2.16.840.1.374471.3.579.2 .593 1952 Unknown [id number] 2.16.840.1.245176.3.579.2 .593 1952 Unknown [id number] 2.16.840.1.798942.3.579.2 .593 1952 Unknown [id number] 2.16.840.1.171742.3.579.2 .593 1952 Unknown [id number] 2.16.840.1.322683.3.579.2 .593 1952 Unknown [id number] 2.16.840.1.302609.3.579.2 .593 1952 Unknown [id number] 2.16.840.1.296869.3.579.2 .593 1952 Unknown [id number] 2.16.840.1.274737.3.579.2 .1286 1952 Unknown [id number] 2.16.840.1.752754.3.579.2 .1286 1952 Unknown [id number] 2.16.840.1.849274.3.579.2 .1259 1952 Unknown [id number] 2.16.840.1.949910.3.579.2 .9 1952 Unknown [id number] 2.16.840.1.104742.3.579.2 .1258 1952 Unknown [id number] 2.16.840.1.636534.3.579.2 .9 1952 Unknown [id number] 2.16.840.1.153344.3.579.2 .9 1952 Unknown [id number] 2.16.840.1.781001.3.579.2 .1259 Social History Date Type Detail Facility Start: 12-23-2022 Tobacco smoking stat [facility] Never smoked tobacco [facility] Start: 12-23-2022 Tobacco use and exposure Smoke less tobacco non-user [facility] Start: 03-10-2023 End: 11-06-2023 Alcohol intake Current drinker of alcohol (finding) [facility] Start: 10-05-2021 End: 03-10-2023 Alcohol intake [facility] Start: 10-05-2021 End: 12-23-2022 Social connection and isolation panel [facility] Do you belong to any clubs or organizations such as shinto groups, unions, fraternal or athletic groups, or school groups? No [facility] Attends Club or Organization Meetings Not on file [facility] Are you now , , , , never or living with a partner? Never [facility] How often to you hav e a drink containing alcohol? 4 or more times a week [facility] How many standard dr inks containing alcohol do you have on a typical day? 1 or 2 [facility] How often do you hav e 6 or more drinks on 1 occasion? Never [facility] How hard is it for y ou to pay for the very basics like food, housing, medical care, and heating Somewhat hard [facility] Do you feel stress - tense, restless, nervous, or anxious, or unable to sleep at night because your mind is troubled all the time - these days [OSQ] Very much [facility] Start: 10-05-2021 Education 19 [facility] Start: 09-09-2020 Alcohol Comment alot weekly [facility] Start: 1950 Sex Assigned At Not on file P [facility] Note 01-31-2024 Telephone Encounter - Bonnie Barbosa CMA - 01/31/2024 9:48 AM EDT Note Date & Type Note Facility 01-31-2024 Miscellaneous Notes Formattin g of this note might be different from the original. Refill request documented in this encounter [facility] Telephone encounter Note 01-31-2024 Telephone Encounter - Bonnie Barbosa CMA - 01/31/2024 9:48 AM EDT Note Date & Type Note Facility 01-31-2024 Telephone encount er Note Refill request [facility] History of Present illness [...] in the morning. documented in this encounter [facility] Note 04-25-2023 Telephone Encounter - Hanna [...] Ambien? Please advise documented in this encounter [facility] Telephone encounter Note 04-25-2023 Telephone [...] she could get some Ambien? Please advise [facility] Evaluation note Note Date & Type Note Facility Evaluation note Diagnosis Primary hypertension- Primary Unspecified essential hypertension documented in this encounter [facility] Instructions Note Date & Type Note [...] section and content) DATE CREATED AUTHOR 01/26/2022 [facility] DATE CREATED AUTHOR AUTHOR'S ORGANIZ ATION 02/22/2022 [facility] DATE CREATED AUTHOR AUTHOR'S ORGANIZ ATION 11/14/2023 [facility] DATE CREATED AUTHOR AUTHOR'S ORGANIZ ATION 01/11/2024 [facility] EPIC Care Teams (unrecognized sec tion and content) [facility] Supervisor Relationship Specialty Start Date End Date Jonny Jeffries MD [address] [place] [address], [address] [place] [address] PCP - General Pediatrics 01/20/20 [facility] Supervisor Relationship Specialty Start Date End Date Jonny Jeffries MD [address] [place] [address], [address] [place] [address] PCP - General Pediatrics 01/20/20 [facility] Supervisor Relationship Specialty Start Date End Date Jonny Jeffries MD [address] [place] [address], [address] [place] [address] PCP - General Pediatrics 01/20/20 [facility] Nurse - [employer] 08/16/23 Reason for [...] BE BASED ON THE PRIMARY CLINICAL RECORDS. [employer] [facility]. provides no warranty or guarantee of the accuracy or completeness of information in this document.
[2024-02-09 10:24] VITALS: BP 160/80; PULSE 70; O2SAT 98
== END 2024-02-09 10:24 | disposition home or self-care (01) ==
LOC: VC 09:30
PROVIDERS: PCP Radiology Diagnostic Radiology; Visit Provider Radiology Diagnostic Radiology
DX: I83.813 Varicose veins of bilateral lower extremities with pain (principal)
CPT/HCPCS: 36466

== ENCOUNTER 2024-02-14 11:36 | Outpatient (OUT) | payer MEDICARE, SELFPAY ==
--- NOTE | 2024-02-14 11:38 | VEIN_ITS ---
Patient Name: CARLOS ABEL MR#: [id number] : 1950 Exam Date: 02/14/2024 Ordering Doctor: DR DALJIT CLEMENS M.D. RADIOLOGY REPORT PROCEDURE: [facility] - OFFICE VISIT FOLLOW UP [facility] PROGRESS NOTES: The patient reports no significant problems following bilateral micro foam chemical ablation of lower extremity varicose veins. The patient has worn her compression stockings. Patient did not require oral analgesics. The patient complains of persistent swelling of the left ankle and foot. She also complains of leg and joint pain. Physical exam demonstrates multiple thrombosed varicose veins. No erythema or warmth to suggest cellulitis or thrombophlebitis. No active ulceration. 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 The patient does have swelling of the left ankle. The patient has lateral angulation of the fingers and varus angulation of the left 2nd toe with prominent joints suspicious for inflammatory/erosive arthritis. I discussed this with the patient and recommended that she follow-up with rheumatology. Review of the ultrasound performed the same day demonstrates occlusive thrombus extending throughout the treated varicose veins. Short segments of deep vein thrombus identified the bilateral gastrocnemius vein and a long segment of deep vein thrombus in the left anterior tibial vein. This is related to multiple associated perforating veins. The deep vein thrombus is removed from the popliteal vein and no treatment was recommended to the patient at this time. At this time the patient's treatments are complete.. VEIN/[facility] EST TD IMPRESSION: 1. Successful ablation bilateral incompetent varicose veins. 2. 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 PLAN: 1. Referral to rheumatology 2. Follow-up as needed Nurse notes, history and physical were reviewed and confirmed, see attached forms. The nurse was present throughout the physical exam and consultation Dictated by: Daljit Clemens MD on 02/14/2024 at 12:36 Approved by: Daljit Clemens MD on 02/14/2024 at 12:39
--- NOTE | 2024-02-14 11:38 | VEIN_ITS ---
Patient Name: CARLOS ABEL MR#: [id number] : 1950 Exam Date: 02/14/2024 Ordering Doctor: DR DALJIT CLEMENS M.D. RADIOLOGY REPORT PROCEDURE: VC EXT VENOUS [place]TON LIMITED COMPARISON: None. INDICATIONS: I80.03 - Phlebitis and thrombophlebitis of superficial veins bilateral TECHNIQUE: Lower extremity morris scale and Duplex Doppler evaluation of the deep venous system from the inguinal ligament through the calf veins. FINDINGS: REGION: Right lower extremity. THROMBI: Acute occlusive thrombus. Thrombus in deep varicose vein off Gastroc vein mid calf. Chemically induced thrombus in mutliple varicose veins. COMPRESSIBILITY: Non-compressible segments. FLOW: Areas on no flow. OTHER: Negative. REGION: Left lower extremity. THROMBI: Acute and chronic appearing thrombi. Chronic thrombus in branch off gastroc mid calf. Chemically induced thrombus in multiple varicose veins. Thrombus extends into ATV from prox to distal and into gastroc vein. COMPRESSIBILITY: Non-compressible segments. FLOW: Areas on no flow. OTHER: Negative. *Exam performed in accordance with [facility] practice guidelines- Peripheral venous ultrasound, July 25, 2009. CONCLUSION: Post ablation occlusion of treated bilateral varicose veins with small segments of deep vein thrombus in the right gastrocnemius, slight progression of deep vein thrombus in the left gastrocnemius and new occlusion of the left anterior tibial vein Dictated by: Daljit Clemens MD on 02/14/2024 at 12:26 Approved by: Daljit Clemens MD on 02/14/2024 at 12:28
--- OUTSIDE RECORDS SUMMARY | 2024-02-14 11:44 | XMS_ITS | CCD ---
Author Organization [facility] [employer] Care Team Providers Care Crate Liner Name Role Phone MECHELLE WOMACK Admitting Unavailable MECHELLE WOMACK Attending Unavailable KEVESTHEATHER, DR JONNY Pro Primary Care Unavailable Keyona, DR Griffith Consulting Unavailable SHANTA, MECHELLE Leblanc Consulting Unavailable KEVESTAND, DR JONNY Pro Admitting [...] source) bee venom Drug allergy (disorder) [facility] Repository Medications Current Medications Medication Drug Class(es) Dates Sig (Normalized) Sig (Original) ibuprofen 800 mg oral tablet (5 sources) Nonsteroidal Anti-inflammatory Drug Start: 02-24-2023 End: 05-08-2023 take 1 tablet by mouth every eight hours as needed for pain ibuprofen (MOTRIN) 800 mg tablet Take 1 tablet (800 mg total) by mouth every 8 (eight) hours as needed for pain. 90 tablet 2 05/08/2023 Active losartan potassium 50 mg oral tablet (4 sources) Angiotensin 2 Receptor Campos Start: 12-25-2023 End: 02-06-2024 take 1 tablet by mouth in the morning losartan (COZAAR) 50 mg tablet Indications: Primary hypertension Take 1 tablet (50 mg total) by mouth in the morning. 90 tablet 02/06/2024 Active Start: 05-08-2023 take 1 tablet by nithin th in the morning losartan (COZAAR) 50 mg tablet Indications: Primary hypertension Take 1 tablet (50 mg total) by mouth in the morning. 90 tablet 1 05/08/2023 Active multivit-min/ferrous fumarat e (MULTI VITAMIN ORAL) (4 sources) multivit-min/augustus aston fumarate (MULTI VITAMIN ORAL) Take by mouth daily. Active multivit-min/augustus aston fumarate (MULTI VITAMIN ORAL) Take by mouth daily. 0 Active sertraline 50 mg oral tablet (5 sources) Serotonin Reuptake Inhibitor Start: 04-02-2020 End: [...] WITHOUT ESOPHAGITIS] Onset: 04-29-2021 Chronic Essential hypertension (13 sources) Essential (primary) hypertension; Translations: [Hypertensive disorder] Onset: 10-01-2020 Chronic Gastritis and duodenitis (1 source) Unspecified chronic gastritis without bleeding; Translations: [UNS CHRONIC GASTRITIS W/O BLEEDING] Onset: 05-24-2021 Chronic Mood disorders (4 sources) Depressive disorder; Translations: [Depression] 10-01-2020 Chronic [...] UNSPECIFIED] Onset: 04-29-2021 Chronic Residual codes; unclassified (4 sources) Obstructive sleep apnea syndrome; Translations: [Obstructive [...] Date Documented Da te Episodic/Chronic Mood disorders (4 sources) Mood disorders Onset: 12-23-2022 12-23-2022 Other aftercare (1 source) 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 Normal [facility] ABO AND RH TYPEon 01-11-2022 ABO and Rh group Nom (Bld) ABO Rh Typing B Rh Positive Normal [facility] Comment on above: Performed By: #### A JANELLE #### [facility] [address] [place] [address] Dr. Rufino Thomas LIPID PROFILEon 01-11-2022 CHOL-HDL RATIO NORM SEE BELOW Normal [facility] Comment on above: Result Comment: 3.3 - 4.4 LOW RISK 4.4 - 7.1 AVERAGE RISK 7.1 - 11.0 MODERATE RISK >11.0 HIGH RISK Performed By: #### L IPID, CMP #### [facility] [address] [address] [address] Rufino Thomas Cholesterol [Mass/Vol] 227 mg/dL Critically high <=[address] [facility] Comment on above: Performed By: #### L IPID, CMP #### [facility] [address] [address] [address] Rufino Thomas Cholesterol in HDL [Mass/Vol] 63 mg/dL Critically high 40-[address] [facility] Comment on above: Performed By: #### L IPID, CMP #### [facility] [address] [address] [address] Rufino Thomas Cholesterol in LDL [Mass/Vol] 151.4 mg/dL Normal [facility] Comment on above: Performed By: #### L IPID, CMP #### [facility] [address] [address] [address] Rufino Thomas Cholesterol.total/ Cholesterol in HDL [Mass ratio] 3.6 {ratio} Normal [facility] Comment on above: Performed By: #### L IPID, CMP #### [facility] [address] [address] [address] Rufino Thomas HDL NORMAL > or = 60 mg/dl - LO W CARDIOVASCULAR RISK <40 mg/dl - HIGH CARDIOVASCULAR RISK Normal [facility] Comment on above: Performed By: #### L IPID, CMP #### [facility] [address] [address] [address] Rufino Thomas LDL CALC NORMAL SEE BELOW Normal [facility] Comment on above: Result Comment: <100 mg/dl OPTIMAL 100 - 129 mg/dl NEAR OR ABOVE OPTIMAL 130 - 159 mg/dl BORDERLINE HIGH 160 - 189 mg/dl HIGH >190 mg/dl VERY HIGH Performed By: #### L IPID, CMP #### [facility] [address] [address] [address] Rufino Thomas Triglyceride [Mass/Vol] 63 mg/dL Normal <=150 [facility] Comment on above: Performed By: #### L IPID, CMP #### [facility] [address] [address] [address] Rufino Thomas VLDL CALC 12.6 mg/dL Normal [facility] Comment on above: Performed By: #### L IPID, CMP #### [facility] [address] [address] [address] Rufino Thomas PROF 14(COMP METB)on 022 Albumin [Mass/Vol] 3.4 g/dL Normal 3.4-5.0 [facility] Comment on above: Performed By: #### L IPID, CMP #### [facility] [address] [address] [address] Rufino Thomas Albumin/Globulin [Mass ratio] 0.9 {ratio} Normal [facility] Comment on above: Performed By: #### L IPID, CMP #### [facility] [address] [address] [address] Rufino Thomas ALP [Catalytic activity/Vol] 61 U/L Normal 46-116 [facility] Comment on above: Performed By: #### L IPID, CMP #### [facility] [address] [address] [address] Rufino Thomas ALT [Catalytic activity/Vol] 41 U/L Normal 14-59 [facility] Comment on above: Performed By: #### L IPID, CMP #### [facility] [address] [address] [address] Rufino Thomas Anion gap [Moles/Vol] 9.9 mmol/L Normal [facility] Comment on above: Performed By: #### L IPID, CMP #### [facility] [address] [address] [address] Rufino Thomas AST [Catalytic activity/Vol] 30 U/L Normal 15-37 [facility] Comment on above: Performed By: #### L IPID, CMP #### [facility] [address] [place] [address] Dr. Rufino Thomas Bilirubin [Mass/Vol] 0.4 mg/dL Normal 0.2-1.0 [facility] Comment on above: Performed By: #### L IPID, CMP #### [facility] [address] [place] [address] Dr. Rufino Thomas Calcium [Mass/Vol] 8.8 mg/dL Normal 8.5-10.1 [facility] Comment on above: Performed By: #### L IPID, CMP #### [facility] [address] [place] [address] Dr. Rufino Thomas Chloride [Moles/Vol] 106 mmol/L Normal 98-107 [facility] Comment on above: Performed By: #### L IPID, CMP #### [facility] [address] [address] [address] Rufino Thomas CO2 [Moles/Vol] 27.3 mmol/L Normal 21.0-32.0 [facility] Comment on above: Performed By: #### L IPID, CMP #### [facility] [address] [address] [address] Rufino Thomas Creatinine [Mass/Vol] 0.71 mg/dL Normal 0.55-1.02 [facility] Comment on above: Performed By: #### L IPID, CMP #### [facility] [address] [address] [address] Rufino Thomas EGFR-AF POLISH >60 Normal >=60 [facility] Comment on above: Performed By: #### L IPID, CMP #### [facility] [address] [address] [address] Rufino Thomas EGFR-NON AF POLISH >60 Normal >=60 [facility] Comment on above: Performed By: #### L IPID, CMP #### [facility] [address] [address] [address] Rufino Thomas Globulin (S) [Mass/Vol] 3.9 g/dL Normal [facility] Comment on above: Performed By: #### L IPID, CMP #### [facility] [address] [address] [address] Rufino hTomas Glucose [Mass/Vol] 95 mg/dL Normal 74-106 [facility] Comment on above: Performed By: #### L IPID, CMP #### [facility] [address] [address] [address] Rufino Thomas Potassium [Moles/Vol] 4.2 mmol/L Normal 3.5-5.1 [facility] Comment on above: Performed By: #### L IPID, CMP #### [facility] [address] [address] [address] Rufino Thomas Protein [Mass/Vol] 7.3 g/dL Normal 6.4-8.2 [facility] Comment on above: Performed By: #### L IPID, CMP #### [facility] [address] [address] [address] Rufino Thomas Sodium [Moles/Vol] 139 mmol/L Normal 136-145 [facility] Comment on above: Performed By: #### L IPID, CMP #### [facility] [address] [address] [address] Rufino Thomas Urea nitrogen [Mass/Vol] 16.0 mg/dL Normal 7.0-18.0 [facility] Comment on above: Performed By: #### L IPID, CMP #### [facility] [address] [address] [address] Rufino Thomas Urea nitrogen/Creatinin e [Mass ratio] 22.5 mg/mg Normal [facility] Comment on above: Performed By: #### L IPID, CMP #### [facility] [address] [address] [address] Rufino Thomas XR ANKLE [place] MIN [...] SILVIA MOJICA Date: 2021-10-20 17:[address] [facility] H PYLORI TISSUEon 05-19-2021 H PYL TISSUE, UREASE Negative Normal NEGATIVE [facility] Comment on above: Performed By: #### H PYLT #### [facility] [address] [address] [address] Rufino Thomas Covid-19 PCR (CVDTB)on 05-01 SARS-CoV-2 (COVID-19) RNA GIOVANNY+probe Ql (Unsp spec) Not detected Normal NOT DETECTED [facility] Comment on above: Result Comment: This test is not yet approved or cleared by the [place] FDA. When there are no FDA-approved or cleared tests available, and other criteria are met, FDA can make tests available under an emergency access mechanism called an Emergency Use Authorization (EUA). The EUA for this test is supported by the Pressure Control Supervisor of Health and Human Service's (HHS's) declaration [...] SARS-CoV-2. Performed By: #### C VDTB #### [facility] [address] [place] [address] Dr. Rufino Thomas Covid-19 PCR ([facility])on SARS-CoV-2 (COVID-19) RNA GIOVANNY+probe Ql (Unsp spec) Not detected Normal NOT DETECTED [facility] Comment on above: Result Comment: This test is not yet approved or cleared by the [place] FDA. When there are no FDA-approved or cleared tests available, and other criteria are met, FDA can make tests available under an emergency access mechanism called an Emergency Use Authorization (EUA). The EUA for this test is supported by the [place] of Health and Human Service's (HHS's) declaration [...] SARS-CoV-2. Performed By: #### C VDTB #### [facility] [address] [place], [place] [id number] Dr. Rufino Thomas US ARNAV DOP LEG [...] BLANQUITA KING Date: 2021-03-06 14:[address] [facility] XR KNEE RT 4V or >on 021 XR KNEE RT 4V or > RIGHT KNEE FOUR VIEWS: 03/06/2021 1:44 PM EDT Clinical Data: Pain. No injury Comparison: No previous No evidence of acute fracture or dislocation. [place] thin probable chronic lucencies proximal tibial shaft are relatively well-defined No joint effusion. Infrapatellar fat is preserved. There is some soft tissue density prominence overlying the patella IMPRESSION: 1. Some soft tissue density prominence overlying the patella. Clinical correlation is needed. 2. No evidence of acute fracture or dislocation Electronically authenticated by: CADEN JEWELL Date: 2021-03-06 14:[address] [facility] Vital Signs Date Time Vital Sign Value Performing Clinician Faci lity 05-08-2023 14:32-0500 Diastolic blood pressure 106 mm[Hg] Jonny Jeffries MD Work Phone: [facility] 05-08-2023 14:32-0500 Heart rate 88 /min Jonny Jeffries MD Work Phone: [facility] 05-08-2023 14:32-0500 Systolic blood pressure 173 mm[Hg] Jonny Jeffries MD Work Phone: [facility] Encounters Encounter Date Encounter Type Care Provider Facility Start: 02-06-2024 End: 02-06-2024 Refill Bonnie Barbosa CMA [facility] Comment on above: Primary hypertension Start: 01-31-2024 End: 01-31-2024 Refill Bonnie Barbosa CMA [facility]Pediatric[facility] Start: 01-09-2024 End: 01-09-2024 ambulatory TALIB GUTIERRES Not Available Start: 11-06-2023 End: 11-06-2023 ambulatory JONNY Pro [facility] Start: 10-30-2023 End: 10-30-2023 ambulatory TEN Llanos DANIEL Not Available Start: 09-20-2023 End: 09-20-2023 ambulatory TEN GREENE Not Available Start: 09-05-2023 End: 09-05-2023 ambulatory TEN Llanos DANIEL Not Available Start: 07-18-2023 End: 07-18-2023 ambulatory TALIB GUTIERRES Not Available Start: 05-08-2023 End: 05-08-2023 ambulatory JONNY JEFFRIES [facility] Start: 05-08-2023 End: 05-08-2023 Office outpatient visit 15 minutes Jonny Jeffries MD [facility] Comment on above: Primary hypertension (Primary Dx) Start: 04-25-2023 Telephone encounter Jonny oliva MD Work [facility] Start: 01-11-2022 End: 01-12-[address] JONNY JEFFRIES Facility:[facility] Start: 10-20-2021 End: 10-21-2021 ambulatory MECHELLE WOMACK Facility:[facility] Start: 05-19-2021 Encounter for preprocedural laboratory examination DR SAMANTHA FALL [facility] Start: 05-19-2021 End: 05-19-[address] SAMANHTA FALL Facility:[facility] Start: 05-15-2021 End: 05-16-2021 ambulatory [...] Td Vaccines (2 - Td or Tdap) [facility] Start: 05-19-2026 Screening for malignant neoplasm of colon Colonoscopy [facility] Start: 11-05-2024 Tobacco Screening Tobacco Screening [facility] Start: 03-10-2024 Tobacco Screening Tobacco Screening [facility] Start: 12-31-2023 COVID-19 Vaccine () COVID-19 Vaccine () [facility] Start: 12-31-2023 Influenza vaccination Influenza Vaccine [facility] Start: 12-24-2023 Depression Screening Depression Screening [facility] Start: 12-24-2023 Fall Risk Screening Fall Risk Screening [facility] Start: 12-24-2023 Medicare Annual Wellness Visit Medicare Annual Wellness Visit [facility] Start: 12-30-2022 COVID-19 Vaccine () COVID-19 Vaccine () [facility] Start: 12-30-2022 Influenza vaccination Influenza Vaccine [facility] Start: 11-26-2022 Adult BMI Screening Adult BMI Screening [facility] Start: 12-24-2021 Screening for malignant neoplasm of breast Mammogram [facility] Start: 2002 Administration of varicella zoster vaccine Zoster (Shingles) Vaccine (1 of 2) [facility] Immunizations Immunization Date Immunization Notes Care Provider Fa cility 07-11-2020 COVID-19, mRNA, LNP- S, PF, 30mcg/0.3mL Dose Jonny Jeffries MD Work Phone: [facility] 06-20-2020 COVID-19, mRNA, LNP- S, PF, 30mcg/0.3mL Dose Jonny Jeffries MD Work Phone: [facility] 09-20-2018 tetanus toxoid, redu luca diphtheria toxoid, and acellular pertussis vaccine, adsorbed Jonny Jeffries MD Work Phone: [facility] Payers Date Payer Category Payer Medicare [id number] 2019 Private Health Insurance [employer] [id number] 2019-Present [phone] [address] [place] [address] [id number] 2017 Medicare [id number] 1959 Medicare [id number] 1959 Unknown [id number] 1952 Unknown [id number] [id number] .593 1952 Unknown [id number] 2.16.840.1.857727.3.579.2 .593 1952 Unknown [id number] 2.16.840.1.651836.3.579.2 .593 1952 Unknown [id number] 2.16.840.1.681415.3.579.2 .593 1952 Unknown [id number] 2.16.840.1.996423.3.579.2 .593 1952 Unknown [id number] 2.16.840.1.756701.3.579.2 .593 1952 Unknown [id number] 2.16.840.1.540642.3.579.2 .593 1952 Unknown [id number] 2.16.840.1.233137.3.579.2 .593 1952 Unknown [id number] 2.16.840.1.557213.3.579.2 .593 1952 Unknown [id number] 2.16.840.1.641336.3.579.2 .1286 1952 Unknown [id number] 2.16.840.1.599625.3.579.2 .1286 1952 Unknown [id number] 2.16.840.1.098680.3.579.2 .1259 1952 Unknown [id number] 2.16.840.1.253574.3.579.2 .9 1952 Unknown [id number] 2.16.840.1.016917.3.579.2 .1258 1952 Unknown [id number] 2.16.840.1.415354.3.579.2 .9 1952 Unknown [id number] 2.16.840.1.361106.3.579.2 .1258 1952 Unknown [id number] 2.16.840.1.220744.3.579.2 .1259 Social History Date Type Detail Facility Start: 12-23-2022 Tobacco smoking stat [facility] Never smoked tobacco [facility] Start: 12-23-2022 Tobacco use and exposure Smoke less tobacco non-user [facility] Start: 03-10-2023 End: 11-06-2023 Alcohol intake Current drinker of alcohol (finding) [facility] Start: 10-05-2021 End: 03-10-2023 Alcohol intake [facility] Start: 10-05-2021 End: 12-23-2022 Social connection and isolation panel [facility] Do you belong to any clubs or organizations such as anglican groups, unions, fraternal or athletic groups, or school groups? No [facility] Attends Club or Organization Meetings Not on file [facility] Are you now , , , , never or living with a partner? Never [facility] How often to you hav e a drink containing alcohol? 4 or more times a week [facility] How many standard dr inks containing alcohol do you have on a typical day? 1 or 2 [facility] How often do you hav e 6 or more drinks on 1 occasion? Never [facility] How hard is it for y ou to pay for the very basics like food, housing, medical care, and heating Somewhat hard [facility] Do you feel stress - tense, restless, nervous, or anxious, or unable to sleep at night because your mind is troubled all the time - these days [OSQ] Very much [facility] Start: 10-05-2021 Education 19 [facility] Start: 09-09-2020 Alcohol Comment alot weekly [facility] Start: 1950 Sex Assigned At Not on file P [facility] Clinical Notes 04-25-2023 to 02-06-2024 Telephone Encounter - Bonnie Barbosa CMA - 02/06/2024 9:50 AM EDTTelephone Encounter - Bonnie Barbosa CMA - 02/06/2024 9:50 AM EDTJonny Jeffries MD - 05/08/2023 2:30 PM EST Note Date & Type Note Facility 02-06-2024 Miscellaneous Notes Formattin g of this note might be different from the original. Refill request documented in this encounter [facility] 02-06-2024 Telephone encount er Note Refill request [facility] 01-31-2024 Miscellaneous Notes Formattin g of this note might be different from the original. Refill request documented in this encounter [facility] 01-31-2024 Telephone encount er Note Refill request [facility] 05-08-2023 History of Presen t illness Narrative [...] in the morning. documented in this encounter [facility] 04-25-2023 Miscellaneous Notes Formattin g of this note might be different from the original. Guillermina called and said that she is unable to sleep at night. She thinks some of it is pain from her ankle. She said she has been on Ambien in the past and is wondering if she could get some Ambien? Please advise documented in this encounter [facility] 04-25-2023 Telephone encount er Note Guillermina called and said that she is unable to sleep at night. She thinks some of it is pain from her ankle. She said she has been on Ambien in the past and is wondering if she could get some Ambien? Please advise [facility] Evaluation note Diagnosis Primary hypertension- Primary Unspecified essential hypertension [facility] Primary hypertension Unspecified essential hypertension documented in this [facility] filedocumented in this encounter [facility] on filedocumented in this encounter [facility] on filedocumented in this encounter [facility] on filedocumented in this encounter [facility] Summary Purpose Family History No Family History Records FoundNo Family History Records FoundNo Family History Records FoundNo Family History Records Found Advance Directives No Advanced Directives Records FoundNo Advanced Directives Records FoundNo Advanced Directives Records FoundNo Advanced Directives Records Found Additional Source Comments INFORMATION SOURCE (unrecogn ized section and content) DATE CREATED AUTHOR 01/26/2022 [facility] DATE CREATED AUTHOR AUTHOR'S ORGANIZ ATION 02/22/2022 [facility] DATE CREATED AUTHOR AUTHOR'S ORGANIZ ATION 11/14/2023 [facility] DATE CREATED AUTHOR AUTHOR'S ORGANIZ ATION 01/11/2024 [facility] d[facility] Specialists [facility] Care Teams (unrecognized sec tion and content) Crate Liner Relationship Specialty Start Date End Date Jonny Jeffries MD [address] [place] [address], [address] [place], [place] [id number] PCP - General Pediatrics 01/20/20 [employer] Relationship Specialty Start Date End Date Jonny Jeffries MD [address] [place] [address], [address] [place], [place] [id number] PCP - General Pediatrics 01/20/20 Crate Liner Relationship Specialty Start Date End Date Jonny Jeffries MD [address] [place] [address], [address] [place] [address] PCP - General Pediatrics 01/20/20 [facility] Nurse - [employer] 08/16/23 Crate Liner Relationship Specialty Start Date End Date Jonny Jeffries MD [address] [place] [address], [address] [place] [address] PCP - General Pediatrics 01/20/20 [facility] Nurse - [employer] 08/16/23 Reason for Visit (unrecogniz ed section and content) Reason Comments Hypertension headaches Reason Onset Date Comments Med Refill 01/31/2024 Reason Onset Date Comments Med Refill 02/06/2024 FOR RECORDS PERTAINING TO PATIENTS WHO ARE [...] BE BASED ON THE PRIMARY CLINICAL RECORDS. [facility] [employer] [facility]. provides no warranty or guarantee of the accuracy or completeness of information in this document.
[2024-02-14 12:28] VITALS: BMI 28.0
--- NOTE | 2024-02-14 12:28 | VEINCLINIC_ITS ---
Vital Signs 02/14/24 12:28 Height 5 ft 7 in Weight 81 kg BMI 28.0 Varicose Veins Patient in today for follow up ultrasound of bilateral lower extremities following Varithena/microfoam completed on 02/09/24. Daljit Olivas MD personally performed the services described in this documentation, as scribed by Daphney Ferrer RDMS in my presence and it is both accurate and complete. I, Daphney Ferrer RDMS, am scribing for, and in the presence of, Dr. Daljit Clemens and in the presence of the patient. thigh: bilateral (bilateral leg varicosities), knee: bilateral, calf: bilateral, ankle: bilateral and blake: bilateral aching, cramping and dull 3 1 year Worsened in recent months: Yes standing and walking analgesics (Ibuprofen 800mg), elevating extremities and compression stockings Reports muscle spasms of leg, bruising, fatigue, heaviness, restless legs and edema History of lower extremity trauma: No Superficial thrombophlebitis: No Family history of varicose veins: yes Has patient had previous lower extremity venous surgery: Yes Patient has previously received the following treatment(s) for lower extremity varicose veins: Reports vein ablation, sclerotherapy and foam therapy Does patient have a history of : no Does patient intend to have future pregnancies: no Has patient had lower extremity venous scan with relux testing: Yes Support hose used: Yes Problems walking or doing physical activity: Yes How does it affect you: often have to stop, rest, and elevate feet Do you walk much: Yes Do you stand much: Yes Bleeding signs: prolonged bleeding and excessive bruising Review of Systems ROS Narrative Daljit Olivas MD personally performed the services described in this documentation, as scribed by Daphney Ferrer RDMS in my presence and it is both accurate and complete. Brendon, Daphney Ferrer RDMS, am scribing for, and in the presence of, Dr. Daljit Clemens and in the presence of the patient. Status of ROS 10 or more systems reviewed and unremark able except as noted in history and below Cardiovascular Reports: edema Integumentary/Breast Reports: redness, skin pain, skin tenderness, skin swelling, new lesion and changes in skin color Neurological Reports: numbness in extremities and weakness in extremities Hematologic/Lymphatic Reports: easy bruising and easy bleeding PFSH PFS Medical History (Updated 02/14/24 @ 12:29 by Daphney Ferrer) Phlebitis and thrombophlebitis of superficial vessels of lower extremities, bilateral ?I80.03 - Phlebitis and thrombophlebitis of superficial vessels of lower extremities, bilateral (ICD-10) Phlebitis and thrombophlebitis of superficial vessels of left lower extremity ?I80.02 - Phlebitis and thrombophlebitis of superficial vessels of left lower extremity (ICD-10) Cellulitis ?L03.90 - Cellulitis, unspecified (ICD-10) Left knee injury ?S89.92XA - Unspecified injury of left lower leg, initial encounter (ICD-10) Varicose veins of bilateral lower extremities with pain ?I83.813 - Varicose veins of bilateral lower extremities with pain (ICD-10) Surgical History (Updated 02/09/24 @ 10:26 by Weston Olson) Status post laser ablation of incompetent vein ?Z98.890 - Other specified postprocedural states (ICD-10) Status post laser ablation of incompetent vein ?Z98.890 - Other specified postprocedural states (ICD-10) Status post sclerotherapy of varicose veins ?Z98.890 - Other specified postprocedural states (ICD-10) ?Z86.79 - Personal history of other diseases of the circulatory system (ICD- 10) History of right hip replacement ?Z96.641 - Presence of right artificial hip joint (ICD-10) Family History (Updated 11/27/23 @ 07:32 by Weston Olson) Other Family history of COPD (chronic obstructive pulmonary disease) Heart disease Varicose veins of bilateral lower extremities with pain Social History (Updated 11/27/23 @ 07:31 by Weston Olson) Within the past year, how often did you have a drink containing alcohol: 2-3 times a week Smoking status: Never smoker Non-prescribed substance use: denies use Meds Home Medications and Allergies Home Medications ?Medication ?Instructions ?Recorded ?Confirmed ?Type ibuprofen 800 mg tablet 800 mg PO DAILY 02/21/23 02/21/23 History sertraline 50 mg tablet (Zoloft) 50 mg PO DAILY 02/21/23 02/21/23 History losartan .ROUTE 11/27/23 History Allergies Allergy/AdvReac Type Severity Reaction Status Date / Time No Known Drug Allergies Allergy Verified 11/27/23 07:30 Exam Narrative Exam Narrative: Daljit Olivas MD personally performed the services described in this documentation, as scribed by Daphney Ferrer RDMS in my presence and it is both accurate and complete. Daphney Olivas RDMS, am scribing for, and in the presence of, Dr. Daljit Clemens and in the presence of the patient. Constitutional Documenting provider has reviewed patient's vital signs: yes Common normals: oriented x3 Nutritional appearance: overweight Cardio Peripheral pulses: posterior tibial pulses present and dorsalis pedis pulses present Extremity Common normals: normal capillary refill General: calf tenderness and edema Right lower extremity: lower leg Right lower leg: inspection and palpation Left lower extremity: lower leg Left lower leg: inspection and palpation Other: Multiple open areas of wound noted to bilateral legs Neuro Common normals: oriented x3 Results Imaging Venous US: Radiologist's impression: Chemically induced thrombus in multiple varicose veins bilateral. Thrombus extends into gastroc bilateral and left ATV. Daljit Olivas MD personally performed the services described in this documentation, as scribed by Daphney Ferrer RDMS in my presence and it is both accurate and complete. Daphney Olivas RDMS am scribing for, and in the presence of, Dr. Daljit Clemens and in the presence of the patient. Assessment and Plan Assessment and Plan (1) Phlebitis and thrombophlebitis of superficial vessels of lower extremities, bilateral: Plan Patient is finished with treatment at this time. Follow up as needed or within 1-2 years. Daljit Olivas MD personally performed the services described in this documentation, as scribed by Daphney Ferrer RDMS in my presence and it is both accurate and complete. Daphney Olivas RDMS am scribing for, and in the presence of, Dr. Daljit Clemens and in the presence of the patient.
--- NOTE | 2024-02-14 16:01 | W.VEIN ---
Discharge Plan Discharge Disposition: Home, Self-Care Discharge Medications: No Action losartan .ROUTE ibuprofen 800 mg tablet 800 mg PO DAILY sertraline [Zoloft] 50 mg tablet 50 mg PO DAILY Plan of Treatment: Patient is finished with treatment at this time. Print Language: Montserratian Discharge Date/Time: 02/14/24 16:02
== END 2024-02-14 16:02 | disposition home or self-care (01) ==
PROVIDERS: PCP Radiology Diagnostic Radiology; Visit Provider Radiology Diagnostic Radiology
DX: I80.03 Phlebitis and thrombophlebitis of superficial vessels of lower extremities, bilateral (principal)
CPT/HCPCS: 93970; G0463

== ENCOUNTER 2024-02-19 11:34 | Outpatient (OUT) | payer MEDICARE, SELFPAY ==
--- NOTE | 2024-02-19 11:36 | VEIN_ITS ---
Patient Name: CARLOS ABEL MR#: [id number] : 1950 Exam Date: 02/19/2024 Ordering Doctor: DR DALJIT CLEMENS M.D. RADIOLOGY REPORT PROCEDURE: [facility] EXT VENOUS [facility] COMPARISON: [facility], 02/14/2024. INDICATIONS: I80.03 - Phlebitis and thrombophlebitis of superficial veins bilateral TECHNIQUE: Lower extremity morris scale and Duplex Doppler evaluation of the deep venous system from the inguinal ligament through the calf veins. FINDINGS: REGION: Right lower extremity. THROMBI: Chronic appearing thrombus. No new thrombus visualized. COMPRESSIBILITY: Non-compressible segments. FLOW: Normal waveform and antegrade flow between 5 and 20 cm/s. OTHER: Negative. REGION: Left lower extremity. THROMBI: Acute and chronic appearing thrombi. Thrombus in left ATVs and in veins anterior and medial foot. COMPRESSIBILITY: Non-compressible segments. FLOW: Areas on no flow. OTHER: Negative. *Exam performed in accordance with [facility] practice guidelines- Peripheral venous ultrasound, July 25, 2009. CONCLUSION: New deep vein thrombus identified in the left anterior tibial veins and in superficial veins of the left anterior and medial foot Dictated by: Daljit Clemens MD on 02/19/2024 at 12:31 Approved by: Daljit Clemens MD on 02/19/2024 at 12:32
--- NOTE | 2024-02-19 11:36 | VEIN_ITS ---
Patient Name: CARLOS ABEL MR#: [id number] : 1950 Exam Date: 02/19/2024 Ordering Doctor: DR DALJIT CLEMENS M.D. RADIOLOGY REPORT PROCEDURE: [facility] - OFFICE VISIT FOLLOW UP [facility] EST TD, 02/05/2024. PROGRESS NOTES: The patient reports new pain and swelling of left foot and ankle. The patient went to the emergency room this past weekend with suspected cellulitis. The patient was not placed on antibiotics. Physical exam demonstrates moderate swelling of the left distal lower leg ankle and foot. Mild erythema. This area is mildly warm to touch. No active ulceration. Review of the ultrasound performed the same day demonstrates new occlusive deep vein thrombus in the left anterior tibial veins as well as some superficial veins in the ankle and foot. This likely is the source of the patient's pain and swelling. I discussed this with the patient and recommended that she immediately start anticoagulation. The patient informed me that she would go directly to drug marked and take her medication as soon as possible this afternoon. [facility]IN/[facility] EST TD IMPRESSION: 1. New left leg deep and superficial vein thrombus with mild thrombophlebitis 2. No definite evidence of cellulitis. PLAN: 1. Xarelto 50 milligrams b.i.d. For 21 days followed by 20 milligrams once per day for 3-6 months 2. Follow-up in our clinic in 3-4 days Nurse notes, history and physical were reviewed and confirmed, see attached forms. The nurse was present throughout the physical exam and consultation Dictated by: Daljit Clemens MD on 02/19/2024 at 12:37 Approved by: Daljit Clemens MD on 02/19/2024 at 12:40
--- NOTE | 2024-02-19 13:14 | VEINCLINIC_ITS ---
Vital Signs 02/19/24 14:27 Height 5 ft 7 in Weight 81 kg BMI 28.0 Varicose Veins Patient in this day for bilateral lower leg ultrasound for pain in left foot. Daljit Olivas MD personally performed the services described in this documentation, as scribed by Daphney Ferrer RDMS in my presence and it is both accurate and complete. IDaphney RDMS, am scribing for, and in the presence of, Dr. Daljit Clemens and in the presence of the patient. thigh: bilateral (bilateral leg varicosities), knee: bilateral, calf: bilateral, ankle: bilateral and blake: bilateral aching, cramping and dull 3 1 year Worsened in recent months: Yes standing and walking analgesics (Ibuprofen 800mg), elevating extremities and compression stockings Reports muscle spasms of leg, bruising, fatigue, heaviness, restless legs and edema History of lower extremity trauma: No Superficial thrombophlebitis: No Family history of varicose veins: yes Has patient had previous lower extremity venous surgery: Yes Patient has previously received the following treatment(s) for lower extremity varicose veins: Reports vein ablation, sclerotherapy and foam therapy Does patient have a history of : no Does patient intend to have future pregnancies: no Has patient had lower extremity venous scan with relux testing: Yes Support hose used: Yes Problems walking or doing physical activity: Yes How does it affect you: often have to stop, rest, and elevate feet Do you walk much: Yes Do you stand much: Yes Bleeding signs: prolonged bleeding and excessive bruising Review of Systems ROS Narrative IDaljit MD personally performed the services described in this documentation, as scribed by Daphney Ferrer RDMS in my presence and it is both accurate and complete. I, Daphney Ferrer RDMS, am scribing for, and in the presence of, Dr. Daljit Clemens and in the presence of the patient. Status of ROS 10 or more systems reviewed and unremark able except as noted in history and below Cardiovascular Reports: edema Integumentary/Breast Reports: redness, skin pain, skin tenderness, skin swelling, new lesion and changes in skin color Neurological Reports: numbness in extremities and weakness in extremities Hematologic/Lymphatic Reports: easy bruising and easy bleeding [facility] Medical History (Updated 10/16/24 @ 12:29 by Daphney Ferrer) Phlebitis and thrombophlebitis of superficial vessels of lower extremities, bilateral ?I80.03 - Phlebitis and thrombophlebitis of superficial vessels of lower extremities, bilateral (ICD-10) Phlebitis and thrombophlebitis of superficial vessels of left lower extremity ?I80.02 - Phlebitis and thrombophlebitis of superficial vessels of left lower extremity (ICD-10) Cellulitis ?L03.90 - Cellulitis, unspecified (ICD-10) Left knee injury ?S89.92XA - Unspecified injury of left lower leg, initial encounter (ICD-10) Varicose veins of bilateral lower extremities with pain ?I83.813 - Varicose veins of bilateral lower extremities with pain (ICD-10) Surgical History (Updated 02/09/24 @ 10:26 by Weston Olson) Status post laser ablation of incompetent vein ?Z98.890 - Other specified postprocedural states (ICD-10) Status post laser ablation of incompetent vein ?Z98.890 - Other specified postprocedural states (ICD-10) Status post sclerotherapy of varicose veins ?Z98.890 - Other specified postprocedural states (ICD-10) ?Z86.79 - Personal history of other diseases of the circulatory system (ICD- 10) History of right hip replacement ?Z96.641 - Presence of right artificial hip joint (ICD-10) Family History (Updated 11/27/23 @ 07:32 by Weston Olson) Other Family history of COPD (chronic obstructive pulmonary disease) Heart disease Varicose veins of bilateral lower extremities with pain Social History (Updated 11/27/23 @ 07:31 by Weston Olson) Within the past year, how often did you have a drink containing alcohol: 2-3 times a week Smoking status: Never smoker Non-prescribed substance use: denies use Meds Home Medications and Allergies Home Medications ?Medication ?Instructions ?Recorded ?Confirmed ?Type ibuprofen 800 mg tablet 800 mg PO DAILY 02/21/23 02/21/23 History sertraline 50 mg tablet (Zoloft) 50 mg PO DAILY 02/21/23 02/21/23 History losartan .ROUTE 11/27/23 History rivaroxaban 15 mg tablet (Xarelto) 15 mg PO BID 02/19/24 02/19/24 History rivaroxaban 20 mg tablet (Xarelto) 20 mg PO DAILY 02/19/24 02/19/24 History Allergies Allergy/AdvReac Type Severity Reaction Status Date / Time No Known Drug Allergies Allergy Verified 11/27/23 07:30 Exam Narrative Exam Narrative: Patient has had swelling and redness in left foot x 3 days. Daljit Olivas MD personally performed the services described in this documentation, as scribed by Daphney Ferrer RDMS in my presence and it is both accurate and complete. Daphney Olivas RDMS, am scribing for, and in the presence of, Dr. Daljit Clemens and in the presence of the patient. Results Imaging Venous US: Radiologist's impression: Chemically induced thrombus in multiple varicose veins in left leg. Thrombus extends into ATVs and through veins in left foot. Daljit Olivas MD personally performed the services described in this documentation, as scribed by Daphney Ferrer RDMS in my presence and it is both accurate and complete. Daphney Olivas RDMS, am scribing for, and in the presence of, Dr. Daljit Clemens and in the presence of the patient. Assessment and Plan Assessment and Plan (1) Phlebitis and thrombophlebitis of superficial vessels of lower extremities, bilateral: Plan Plan is for patient to start on Xarelto 15 mg BID for 21 days and then to start Xarelto 20 mg daily for 90 days. Daljit Olivas MD personally performed the services described in this documentation, as scribed by Daphney Ferrer RDMS in my presence and it is both accurate and complete. Daphney Olivas RDMS, am scribing for, and in the presence of, Dr. Daljit Clemens and in the presence of the patient.
[2024-02-19 14:27] VITALS: BMI 28.0
--- NOTE | 2024-02-19 14:32 | W.VEIN ---
Discharge Plan Discharge Disposition: Home, Self-Care Discharge Medications: No Action losartan .ROUTE ibuprofen 800 mg tablet 800 mg PO DAILY sertraline [Zoloft] 50 mg tablet 50 mg PO DAILY Xarelto 15 mg tablet 15 mg PO BID Patient Comments: for 21 days Rx Instructions: must administer with a meal/food Xarelto 20 mg tablet 20 mg PO DAILY Patient Comments: for 90 days after the initial 21 days Rx Instructions: must administer with evening meal Plan of Treatment: Patient to start on Xarelto 15 mg BID for 21 days and then 20 mg daily for 90 days Print Language: Kiswahili Discharge Date/Time: 02/19/24 14:33
== END 2024-02-19 14:33 | disposition home or self-care (01) ==
PROVIDERS: PCP Radiology Diagnostic Radiology; Visit Provider Radiology Diagnostic Radiology
DX: I80.03 Phlebitis and thrombophlebitis of superficial vessels of lower extremities, bilateral (principal)
CPT/HCPCS: 93970; G0463

== ENCOUNTER 2024-02-22 12:42 | Outpatient (OUT) | payer MEDICARE, SELFPAY ==
--- NOTE | 2024-02-22 12:46 | VEIN_ITS ---
Patient Name: CARLOS ABEL MR#: [id number] : 1950 Exam Date: 02/22/2024 Ordering Doctor: DR HUY HOYOS M.D. RADIOLOGY REPORT PROCEDURE: VC EXT VENOUS [facility] LIMITED COMPARISON: [facility], 02/19/2024. [facility], 02/19/2024. [facility] EXT [facility]OUS [facility] LIMITED, 02/05/2024. INDICATIONS: I80.02 - Phlebitis and thrombophlebitis of superficial veins left leg TECHNIQUE: Lower extremity morris scale and Duplex Doppler evaluation of the deep venous system from the inguinal ligament through the calf veins. FINDINGS: REGION: Left lower extremity. THROMBI: Positive for DVT. Thrombus in left ATV from prox to distal. Thrombus extends into majority of veins in foot. COMPRESSIBILITY: Non-compressible segments corresponding to thrombus FLOW: Areas of no flow corresponding to thrombus OTHER: CONCLUSION: 1. Persistent deep vein thrombus within left anterior tibial veins and superficial veins of the foot. Dictated by: Nacho Rand M.D. on 02/22/2024 at 13:07 Approved by: Nacho Rand M.D. on 02/22/2024 at 13:35
--- NOTE | 2024-02-22 12:48 | VEIN_ITS ---
Patient Name: CARLOS ABEL MR#: [id number] : 1950 Exam Date: 02/22/2024 Ordering Doctor: DR HUY HOYOS M.D. RADIOLOGY REPORT PROCEDURE: [facility] - OFFICE VISIT FOLLOW UP COMPARISON: [facility], 02/19/2024. [facility], 02/19/2024. PROGRESS NOTES: The patient reports improvement in leg symptoms consisting of slightly decreased swelling and erythema compared to yesterday. The patient has been taking Xarelto for 3 days. Physical exam demonstrates notable swelling and erythema of the left foot and calf. Review of the ultrasound performed the same day demonstrates deep vein thrombus within the anterior tibial veins from proximal to distal and within the superficial veins of the foot. The patient was planning on leaving tomorrow morning for a conference in [place]. [facility] IMPRESSION: 1. Persistent deep vein thrombus within the anterior tibial veins. Persistent thrombus throughout the superficial veins of the foot. 2. Erythema and swelling of the left calf and foot which the patient feels has improved compared to yesterday. PLAN: Continue on course of Xarelto with close observation of calf and foot. If swelling or erythema increases or if patient develops pain, patient should report to Emergency Department to exclude further extension of clot. Close observation and daily pictures of the foot and calf by the patient and awareness of possible ischemia. Patient understood risks, complications, and planned course of treatment. Nurse notes, history and physical were reviewed and confirmed, see attached forms. The nurse was present throughout the physical exam and consultation Dictated by: Nacho Rand M.D. on 02/22/2024 at 13:35 Approved by: Nacho Rand M.D. on 02/22/2024 at 13:41
--- OUTSIDE RECORDS SUMMARY | 2024-02-22 12:53 | XMS_ITS | CCD ---
Author Organization [facility] Care Team Providers Care Sole Trimmer Name Role Phone MECHELLE WOMACK Admitting Unavailable MECHELLE WOMACK Attending Unavailable KEVESTAND, DR JONNY Pro Primary Care Unavailable Keyona, DR Griffith Consulting Unavailable SHANTA, MECHELLE Overton Consulting Unavailable HIESTAND, DR JONNY [...] ALFONZO, DAVE Consulting Unavailable KLYMCADEN Consulting Unavailable TANILLIS, DR SAMANTHA Stovall Admitting Unavailabl e EUFEMIA, DR SAMANTHA Stovall Attending Unavailabl e HIESTAND, DR JONNY Pro Primary Care Unavailable EUFEMIA, DR SAMANTHA Stovall Consulting UnavailMECHELLE Rhoades Admitting Unavailable MECHELLE WOMACK Attending Unavailable KEVESTHEATHER, DR JONNY Pro Primary Care Unavailable MECHELLE [...] HIESTHEATHER, DR JONNY Pro Primary Care Unavailable Jonny Jeffries MD Primary Care Provider JONNY JEFFRIES Attending Unavailable JONNY JEFFRIES Referring Unavailable JONNY JEFFRIES Primary Care Unavailable JONNY JEFFRIES Attending Unavailable JONNY JEFFRIES Referring Unavailable JONNY JEFFRIES Primary Care Unavailable TALIB GUTIERRES Attending Unavailable TALIB GUTIERRES Referring Unavailable TEN GREENE Attending Unavailable TEN GREENE Attending Unavailable TEN GREENE Attending Unavailable TALIB GUTIERRES Attending Unavailable JONNY JEFFRIES Primary Care Unavailable IRMA FRAIRE Attending Unavailable Allergies Allergy Classification Reported Allergen(s) Allergy Type Date of Onset Reaction(s) Facility (1 source) bee venom Drug allergy (disorder) [facility] Repository Medications Current Medications Medication Drug Class(es) [...] ARTIFICIAL HIP JOINT] Onset: 05-24-2021 Chronic Other connective tissue disease (1 source) Other specified soft tissue disorders; Translations: [Other specified soft tissue disorders] Onset: 02-18-2024 Episodic Other connective tissue disease (2 sources) Leg swelling symptom Onset: 02-18-2024 Episodic Other nutritional; endocrine; and metabolic disorders (1 [...] 12-23-2022 12-23-2022 Other aftercare (1 source) Other oysterman (current) drug therapy; Translations: [[facility] CURRENT DRUG THERAPY] Onset: 05-24-2021 Episodic Other [...] Name Value Interpretation Reference Range Facil ity Fibrin D-dimer DDU (PPP) [Ma ss/Vol]on 02-18-2024 D DIMER 997 ng/mL DDU High <255 [facility] Comment on above: Result Comment: Results >=255ng/mL DDU: Results may be indicative of the presence of VTE. The use of the Wells score and further diagnostic tests should be considered. Elevated D-Dimer levels can also be associated with DIC, neoplasm, , trauma and liver disease. Elevated levels of rheumatoid factor may lead to an overestimation of the D-Dimer level. Performed By: #### [id number] #### [facility] ([id number]) [address] [place] [address], [place] [address] 36on 01-12-2022 36 Coordinator discusse d with [...] discontinuing Nsaid use for pain control. Normal [facility] ABO AND RH TYPEon 01-11-2022 ABO and Rh group Nom (Bld) ABO Rh Typing B Rh Positive Normal [facility] Comment on above: Performed By: #### A JANELLE #### [facility] [address] [place], [place] [address] Dr. Rufino Thomas LIPID PROFILEon 01-11-2022 CHOL-HDL RATIO NORM SEE BELOW Normal [facility] Comment on above: Result Comment: 3.3 - 4.4 LOW RISK 4.4 - 7.1 AVERAGE RISK 7.1 - 11.0 MODERATE RISK >11.0 HIGH RISK Performed By: #### L IPID, CMP #### [facility] [address] [place] [address] [address] Rufino Thomas Cholesterol [Mass/Vol] 227 mg/dL Critically high <=200 [facility] Comment on above: Performed By: #### L IPID, CMP #### [facility] [address] [place] [address] [address] Rufino Thomas Cholesterol in HDL [Mass/Vol] 63 mg/dL Critically high 40-60 [facility] Comment on above: Performed By: #### L IPID, CMP #### [facility] [address] [place] [address] [address] Rufino Thomas Cholesterol in LDL [Mass/Vol] 151.4 mg/dL Normal [facility] Comment on above: Performed By: #### L IPID, CMP #### [facility] [address] [place] [address] [address] Rufino Thomas Cholesterol.total/ Cholesterol in HDL [Mass ratio] 3.6 {ratio} Normal [facility] Comment on above: Performed By: #### L IPID, CMP #### [facility] [address] [place] [address] [address] Rufino Thomas HDL NORMAL > or = 60 mg/dl - LO W CARDIOVASCULAR RISK <40 mg/dl - HIGH CARDIOVASCULAR RISK Normal [facility] Comment on above: Performed By: #### L IPID, CMP #### [facility] [address] [place] [address] [address] Rufino Thomas LDL CALC NORMAL SEE BELOW Normal [facility] Comment on above: Result Comment: <100 mg/dl OPTIMAL 100 - 129 mg/dl NEAR OR ABOVE OPTIMAL 130 - 159 mg/dl BORDERLINE HIGH 160 - 189 mg/dl HIGH >190 mg/dl VERY HIGH Performed By: #### L IPID, CMP #### [facility] [address] [place] [address] [address] Rufino Thomas Triglyceride [Mass/Vol] 63 mg/dL Normal <=150 [facility] Comment on above: Performed By: #### L IPID, CMP #### [facility] [address] [place] [address] Dr. Rufino Thomas VLDL CALC 12.6 mg/dL Normal [facility] Comment on above: Performed By: #### L IPID, CMP #### [facility] [address] [place] [address] Dr. Rufino Thomas PROF 14(COMP METB)on 022 Albumin [Mass/Vol] 3.4 g/dL Normal 3.4-5.0 [facility] Comment on above: Performed By: #### L IPID, CMP #### [facility] [address] [place] [address] Dr. Rufino Thomas Albumin/Globulin [Mass ratio] 0.9 {ratio} Normal [facility] Comment on above: Performed By: #### L IPID, CMP #### [facility] [address] [place] [address] Dr. Rufino Thomas ALP [Catalytic activity/Vol] 61 U/L Normal 46-116 [facility] Comment on above: Performed By: #### L IPID, CMP #### [facility] [address] [place] [address] Dr. Rufino Thomas ALT [Catalytic activity/Vol] 41 U/L Normal 14-59 [facility] Comment on above: Performed By: #### L IPID, CMP #### [facility] [address] [place] [address] Dr. Rufino Thomas Anion gap [Moles/Vol] 9.9 mmol/L Normal [facility] Comment on above: Performed By: #### L IPID, CMP #### [facility] [address] [place] [address] Dr. Rufino Thomas AST [Catalytic activity/Vol] 30 U/L Normal 15-37 [facility] Comment on above: Performed By: #### L IPID, CMP #### [facility] [address] [place] [address] Dr. Rufino Thomas Bilirubin [Mass/Vol] 0.4 mg/dL Normal 0.2-1.0 [facility] Comment on above: Performed By: #### L IPID, CMP #### [facility] [address] [place] [address] [address] Rufino Thomas Calcium [Mass/Vol] 8.8 mg/dL Normal 8.5-10.1 [facility] Comment on above: Performed By: #### L IPID, CMP #### [facility] [address] [place] [address] [address] Rufino Thomas Chloride [Moles/Vol] 106 mmol/L Normal 98-107 [facility] Comment on above: Performed By: #### L IPID, CMP #### [facility] [address] [place] [address] [address] Rufino Thomas CO2 [Moles/Vol] 27.3 mmol/L Normal 21.0-32.0 [facility] Comment on above: Performed By: #### L IPID, CMP #### [facility] [address] [place] [address] Dr. Rufino Thomas Creatinine [Mass/Vol] 0.71 mg/dL Normal 0.55-1.02 [facility] Comment on above: Performed By: #### L IPID, CMP #### [facility] [address] [place] [address] Dr. Rufino Thomas EGFR-AF TURKMEN >60 Normal >=60 [facility] Comment on above: Performed By: #### L IPID, CMP #### [facility] [address] [place] [address] Dr. Rufino Thomas EGFR-NON AF TURKMEN >60 Normal >=60 [facility] Comment on above: Performed By: #### L IPID, CMP #### [facility] [address] [place] [address] Dr. Rufino Thomas Globulin (S) [Mass/Vol] 3.9 g/dL Normal [facility] Comment on above: Performed By: #### L IPID, CMP #### [facility] [address] [place] [address] Dr. Rufino Thomas Glucose [Mass/Vol] 95 mg/dL Normal 74-106 [facility] Comment on above: Performed By: #### L IPID, CMP #### [facility] [address] [place] [address] [address] Rufino Thomas Potassium [Moles/Vol] 4.2 mmol/L Normal 3.5-5.1 [facility] Comment on above: Performed By: #### L IPID, CMP #### [facility] [address] [place] [address] [address] Rufino Thomas Protein [Mass/Vol] 7.3 g/dL Normal 6.4-8.2 [facility] Comment on above: Performed By: #### L IPID, CMP #### [facility] [address] [place] [address] [address] Rufino Thomas Sodium [Moles/Vol] 139 mmol/L Normal 136-145 [facility] Comment on above: Performed By: #### L IPID, CMP #### [facility] [address] [place] [address] Dr. Rufino Thomas Urea nitrogen [Mass/Vol] 16.0 mg/dL Normal 7.0-18.0 [facility] Comment on above: Performed By: #### L IPID, CMP #### [facility] [address] [place] [address] Dr. Rufino Thomas Urea nitrogen/Creatinin e [Mass ratio] 22.5 mg/mg Normal [facility] Comment on above: Performed By: #### L IPID, CMP #### [facility] [address] [place] [address] Dr. Rufino Thomas XR ANKLE MILTON MIN [...] SILVIA MOJICA Date: 2021-10-20 17:48 Normal [facility] H PYLORI TISSUEon 05-19-2021 H PYL TISSUE, UREASE Negative Normal NEGATIVE [facility] Comment on above: Performed By: #### H PYLT #### [facility] [address] [place], [place] [address] Dr. Rufino Thomas Covid-19 PCR (CVDTB)on 05-01 SARS-CoV-2 (COVID-19) RNA GIOVANNY+probe Ql (Unsp spec) Not detected Normal NOT DETECTED [facility] Comment on above: Result Comment: This test is not yet approved or cleared by the [place] FDA. When there are no FDA-approved or cleared tests available, and other criteria are met, FDA can make tests available under an emergency access mechanism called an Emergency Use Authorization (EUA). The EUA for this test is supported by the [place] of Health and Human Service's (HHS's) declaration [...] consistent with SARS-CoV-2. Performed By: #### C VDTBH #### [facility] [address] [place], [place] [address] Dr. Rufino Thomas Covid-19 PCR (CVDTBH)on SARS-CoV-2 (COVID-19) RNA GIOVANNY+probe Ql (Unsp spec) Not detected Normal NOT DETECTED [facility] Comment on above: Result Comment: This test is not yet approved or cleared by the [place] FDA. When there are no FDA-approved or cleared tests available, and other criteria are met, FDA can make tests available under an emergency access mechanism called an Emergency Use Authorization (EUA). The EUA for this test is supported by the [employer] of Health and Human Service's (HHS's) declaration [...] consistent with SARS-CoV-2. Performed By: #### C [facility] #### [facility] [address] [place] [address] Dr. Rufino Thomas US ARNAV DOP LEG [...] BLANQUITA KING Date: 2021-03-06 14:58 Normal [facility] XR KNEE RT 4V or >on 021 XR KNEE RT 4V or > RIGHT KNEE FOUR VIEWS: 03/06/2021 1:44 PM EDT Clinical Data: Pain. No injury Comparison: No previous No evidence of acute fracture or dislocation. Ute thin probable chronic lucencies proximal tibial shaft are relatively well-defined No joint effusion. Infrapatellar fat is preserved. There is some soft tissue density prominence overlying the patella IMPRESSION: 1. Some soft tissue density prominence overlying the patella. Clinical correlation is needed. 2. No evidence of acute fracture or dislocation Electronically authenticated by: CADEN JEWELL Date: 2021-03-06 14:56 Normal [facility] Vital Signs Date Time Vital Sign Value Performing Clinician Nicole alfred 05-08-2023 14:32-0500 Diastolic blood pressure 106 mm[Hg] Jonny Jeffries MD Work Phone: [facility] 05-08-2023 14:32-0500 Heart rate 88 /min Jonny Jeffries MD Work Phone: [facility] 05-08-2023 14:32-0500 Systolic blood pressure 173 mm[Hg] Jonny Jeffries MD Work Phone: [facility] Encounters Encounter Date Encounter Type Care Provider Facility Start: 02-18-2024 End: 02-18-2024 Emergency department patient visit JONNY JEFFRIES [facility] Start: 02-06-2024 End: 02-06-2024 Refill Bonnie Barbosa [facility] Comment on above: Primary hypertension Start: 01-31-2024 End: 01-31-2024 Refill Bonnie Barbosa [facility] Start: 01-09-2024 End: 01-09-2024 ambulatory TALIB Johnson GUTIERRES Not Available Start: 11-06-2023 End: 11-06-2023 ambulatory [facility] Start: 10-30-2023 End: 10-30-2023 ambulatory TEN S RUSHER Not Available Start: 09-20-2023 End: 09-20-2023 ambulatory TEN S RUSHER Not Available Start: 09-05-2023 End: 09-05-2023 ambulatory TEN S RUSHER Not Available Start: 07-18-2023 End: 07-18-2023 ambulatory TALIB T GUTIERRES Not Available Start: 05-08-2023 End: 05-08-2023 ambulatory [facility] Start: 05-08-2023 End: 05-08-2023 Office outpatient visit 15 minutes Jonny Jeffries MD Work Phone: [facility] Comment on above: Primary hypertension (Primary Dx) Start: 04-25-2023 Telephone encounter Jonny oliva MD Work Phone: [facility] Start: 01-11-2022 End: 01-12-[address] JONNY JEFFRIES Facility:[facility] Start: 10-20-2021 End: 10-21-2021 ambulatory MECHELLE WOMACK Facility:[facility] Start: 05-19-2021 Encounter for preprocedural laboratory examination DR SAMANTHA FALL [facility] Start: 05-19-2021 End: 05-19-2021 ambulatory [...] Td Vaccines (2 - Td or Tdap) [facility] Start: 05-19-2026 Screening for malignant neoplasm of colon Colonoscopy [facility] Start: 11-05-2024 Tobacco Screening Tobacco Screening [facility] Start: 03-10-2024 Tobacco Screening Tobacco Screening [facility] Start: 12-31-2023 COVID-19 Vaccine ( season) COVID-19 Vaccine () [facility] Start: 12-31-2023 Influenza vaccination Influenza Vaccine [facility] Start: 12-24-2023 Depression Screening Depression Screening [facility] Start: 12-24-2023 Fall Risk Screening Fall Risk Screening [facility] Start: 12-24-2023 Medicare Annual Wellness Visit Medicare Annual Wellness Visit [facility] Start: 12-30-2022 COVID-19 Vaccine ( season) COVID-19 Vaccine ( season) [facility] Start: 12-30-2022 Influenza vaccination Influenza Vaccine [facility] Start: 11-26-2022 Adult BMI Screening Adult BMI Screening [facility] Start: 12-24-2021 Screening for malignant neoplasm of breast Mammogram [facility] Start: 2002 Administration of varicella zoster vaccine Zoster (Shingles) Vaccine (1 of 2) [facility] Immunizations Immunization Date Immunization Notes Care Provider Fa cility 07-11-2020 COVID-19, mRNA, LNP- S, PF, 30mcg/0.3mL Dose Jonny Jeffries MD Work Phone: [facility] 06-20-2020 COVID-19, mRNA, LNP- S, PF, 30mcg/0.3mL Dose Jonny Jeffries MD Work Phone: [facility] 09-20-2018 tetanus toxoid, redu luca diphtheria toxoid, and acellular pertussis vaccine, adsorbed Jonny Jeffries MD Work Phone: [facility] Payers Date Payer Category Payer Medicare [id number] 2019 Private Health Insurance [facility] AARP SUPPLEMENT [id number] 2019-Present [phone] [address] [place] [address] [id number] 2017 Medicare [id number] 1959 Medicare [id number] 1959 Unknown [id number] 1952 Unknown [id number] [id number] .593 1952 Unknown [id number] 2.16.840.1.491708.3.579.2 .593 1952 Unknown [id number] 2.16.840.1.589945.3.579.2 .593 1952 Unknown [id number] 2.16.840.1.108085.3.579.2 .593 1952 Unknown [id number] 2.16.840.1.018001.3.579.2 .593 1952 Unknown [id number] 2.16.840.1.348963.3.579.2 .593 1952 Unknown [id number] 2.16.840.1.984569.3.579.2 .593 1952 Unknown [id number] 2.16.840.1.152958.3.579.2 .593 1952 Unknown [id number] 2.16.840.1.731563.3.579.2 .593 1952 Unknown [id number] 2.16.840.1.919677.3.579.2 .1286 1952 Unknown [id number] 2.16.840.1.680537.3.579.2 .1286 1952 Unknown [id number] 2.16.840.1.498276.3.579.2 .1258 1952 Unknown [id number] 2.16.840.1.840272.3.579.2 .125 1952 Unknown [id number] 2.16.840.1.451584.3.579.2 .1258 1952 Unknown [id number] 2.16.840.1.369599.3.579.2 .1259 1952 Unknown [id number] 2.16.840.1.481291.3.579.2 .125 1952 Unknown [id number] 2.16.840.1.015037.3.579.2 .1259 1952 Unknown [id number] 2.16.840.1.390204.3.579.2 .1286 Social History Date Type Detail Facility [facility]: [facility] Start: 12-23-2022 Tobacco use and exposure Smoke less tobacco non-user [facility] Start: 03-10-2023 End: 11-06-2023 Alcohol intake Current drinker of alcohol (finding) [facility] Start: 10-05-2021 End: 03-10-2023 Alcohol intake [facility] Start: 10-05-2021 End: 12-23-2022 Social connection and isolation panel [facility] Do you belong to any clubs or organizations such as samaritan groups, unions, fraternal or athletic groups, or school groups? No [facility] Attends Club or Organization Meetings Not on file [facility] Are you now , , , , never or living with a partner? Never [facility] How often to you hav e a drink containing alcohol? 4 or more times a week [facility] How many standard dr inks containing alcohol do you have on a typical day? 1 or 2 [facility] How often do you hav e 6 or more drinks on 1 occasion? Never [facility] How hard is it for y ou to pay for the very basics like food, housing, medical care, and heating Somewhat hard [facility] Do you feel stress - tense, restless, nervous, or anxious, or unable to sleep at night because your mind is troubled all the time - these days [OSQ] Very much [facility] Start: 10-05-2021 Education 19 [facility] Start: 09-09-2020 Alcohol Comment alot weekly [facility] Start: 1950 Sex Assigned At Not on file P [facility] Clinical Notes 04-25-2023 to 02-06-2024 Telephone Encounter - Bonnie Barbosa [facility] - 02/06/2024 9:50 AM EDTTelephone Encounter - Bonnie Barbosa CMA - 02/06/2024 9:50 AM EDTJonny Jeffries MD - 05/08/2023 2:30 PM EST Note Date & Type Note Facility 02-06-2024 Miscellaneous Notes Formattin g of this note might be different from the original. Refill request documented in this encounter [facility] 02-06-2024 Telephone encount er Note Refill request [facility] 01-31-2024 Miscellaneous Notes Formattin g of this note might be different from the original. Refill request documented in this encounter [facility] 01-31-2024 Telephone encount er Note Refill request [facility] 05-08-2023 History of Presen t illness Narrative [...] in the morning. documented in this encounter [facility] 04-25-2023 Miscellaneous Notes Formattin g of this note might be different from the original. Carlos called and said that she is unable to sleep at night. She thinks some of it is pain from her ankle. She said she has been on Ambien in the past and is wondering if she could get some Ambien? Please advise documented in this encounter [facility] 04-25-2023 Telephone encount er Note Carlos called and said that she is unable to sleep at night. She thinks some of it is pain from her ankle. She said she has been on Ambien in the past and is wondering if she could get some Ambien? Please advise [facility] Evaluation note Diagnosis Primary hypertension- Primary Unspecified essential hypertension documented in this encounter [facility] SystemEvaluation note* Diagnosis Primary hypertension Unspecified essential hypertension documented in this encounter [facility] SystemInstructionsNot on filedocumented in this encounter [facility] on filedocumented in [facility] SystemInstructionsNot on filedocumented in this encounter [facility] SystemInstructionsNot on filedocumented in this encounter [facility] Summary Purpose Family History No Family History Records FoundNo Family History Records FoundNo Family History Records FoundNo Family History Records FoundNo Family History Records Found Advance Directives No Advanced Directives Records FoundNo Advanced Directives Records FoundNo Advanced Directives Records FoundNo Advanced Directives Records FoundNo Advanced Directives Records Found Additional Source Comments INFORMATION SOURCE (unrecogn ized section and content) DATE CREATED AUTHOR 01/26/2022 [facility] DATE CREATED AUTHOR AUTHOR'S ORGANIZ ATION 02/22/2022 [facility] DATE CREATED AUTHOR AUTHOR'S ORGANIZ ATION 11/14/2023 [facility] DATE CREATED AUTHOR AUTHOR'S ORGANIZ ATION 01/11/2024 [facility] EPIC DATE CREATED AUTHOR AUTHOR'S ORGANIZ ATION 02/20/2024 [facility] Care Teams (unrecognized sec tion and content) Sole Trimmer Relationship Specialty Start Date End Date Jonny Jeffries MD [address] [place] [address], [address] [place] [address] PCP - General Pediatrics 01/20/20 Sole Trimmer Relationship Specialty Start Date End Date Jonny Jeffries MD [address] [place] [address], [address] [place] [address] PCP - General Pediatrics 01/20/20 Sole Trimmer Relationship Specialty Start Date End Date Jonny Jeffries MD [address] [place] [address], [address] [place] [address] PCP - General Pediatrics 01/20/[address] [facility] Nurse - [employer] 08/16/23 Sole Trimmer Relationship Specialty Start Date End Date Jonny Jeffries MD [address] [place] [address], [address] [place] [address] PCP - General Pediatrics 01/20/[address] [facility] Nurse - [employer] 08/16/23 Reason for Visit [...] PRIMARY CLINICAL RECORDS. [facility] [employer] [facility]. provides no warranty or guarantee of the accuracy or completeness of information in this document.
[2024-02-22 13:28] VITALS: BMI 28.0
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
--- NOTE | 2024-02-22 13:31 | W.VEIN ---
Discharge Plan Discharge Disposition: Home, Self-Care Outpatient Diagnostics: [facility] Facility EST LMTD (Routine) Timeframe: 1 Month Facility: [facility] - Location: [facility] Center Ordered By: Nacho Rand [facility] EXT Venous LT Limited (Routine) Timeframe: 1 Month Facility: [facility] - Location: Vein Center Ordered By: Nacho Rand Follow Up Appointments: 03/11/24 Plan of Treatment: Continue with Xarelto and follow up ultrasound of left leg/consult with physician Print Language: Maltese Discharge Date/Time: 02/22/24 13:35
== END 2024-02-22 13:35 | disposition home or self-care (01) ==
PROVIDERS: PCP Radiology Diagnostic Radiology; Visit Provider Radiology Diagnostic Radiology
DX: I80.02 Phlebitis and thrombophlebitis of superficial vessels of left lower extremity (principal)
CPT/HCPCS: 93971; G0463

== ENCOUNTER 2024-03-11 12:59 | Outpatient (OUT) | payer MEDICARE, SELFPAY ==
[2024-03-11 09:29] VITALS: BMI 28.0
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
--- NOTE | 2024-03-11 13:02 | VEIN_ITS ---
Patient Name: CARLOS ABEL MR#: [id number] : 1950 Exam Date: 03/11/2024 Ordering Doctor: DR SILVIA MOJICA M.D. RADIOLOGY REPORT PROCEDURE: FACILITY EST LMTD VEIN CENTER - OFFICE VISIT FOLLOW UP COMPARISON: [facility] EST LMTD, 02/22/2024. FACILITY EST LMTD, 02/19/2024. PROGRESS NOTES: The patient reports gradual improvement in pain swelling and erythema of the left leg from the prior exam. The patient has continued to take her anticoagulant. Physical exam demonstrates marked reduction but not resolution of left leg erythema and subcutaneous edema. No new active ulceration is observed. Review of the ultrasound performed the same day demonstrates improvement in left leg deep vein thrombus with development of multiple new collateral veins. No new deep or superficial vein thrombus is observed. The patient was asked to continue her anticoagulation and return for follow-up ultrasound in 2 months. VEIN/[facility] EST LMTD IMPRESSION: 1. Interval improvement in left leg deep vein thrombus 2. Interval improvement in left leg swelling and erythema PLAN: Continued Xarelto 20 milligram once per day Follow-up in 2 months Nurse notes, history and physical were reviewed and confirmed, see attached forms. The nurse was present throughout the physical exam and consultation Dictated by: Daljit Clemens MD on 03/11/2024 at 13:39 Approved by: Daljit Clemens MD on 03/11/2024 at 13:43
--- NOTE | 2024-03-11 13:50 | W.VEIN ---
Discharge Plan Discharge Disposition: Home, Self-Care Outpatient Diagnostics: [facility] Facility EST LMTD (Routine) Timeframe: 3 Months Facility: [facility] - Location: Vein Center Ordered By: Daljit Clemens VC EXT Venous LT Limited (Routine) Timeframe: 3 Months Facility: [facility] - Location: Vein Center Ordered By: Daljit Clemens Follow Up Appointments: 05/13/24 Plan of Treatment: Xarelto 20 mg once a day for 90 days, follow up venous ultrasound of left leg. Referred to rheumatology Print Language: Luxembourgish Referrals: ARNOLDO FROST [Physician] - Discharge Date/Time: 03/11/24 13:51
== END 2024-03-11 13:51 | disposition home or self-care (01) ==
PROVIDERS: PCP Radiology Diagnostic Radiology; Visit Provider Radiology Diagnostic Radiology
DX: I80.02 Phlebitis and thrombophlebitis of superficial vessels of left lower extremity (principal)
CPT/HCPCS: 93971; G0463

== ENCOUNTER 2024-05-13 13:00 | Outpatient (OUT) | payer MEDICARE, SELFPAY ==
[2024-05-13 09:59] VITALS: BMI 28.0
--- NOTE | 2024-05-13 09:59 | VEINCLINIC_ITS ---
Vital Signs 05/13/24 09:59 Height 5 ft 7 in Weight 81 kg BMI 28.0 Varicose Veins Patient in today for follow up ultrasound of left lower extremity to follow up on left leg DVT. Daljit Olivas MD personally performed the services described in this documentation, as scribed by Daphney Ferrer RDMS in my presence and it is both accurate and complete. Brendon, Daphney Ferrer RDMS, am scribing for, and in the presence of, Dr. Daljit Clemens and in the presence of the patient. thigh: bilateral (bilateral leg varicosities), knee: bilateral, calf: bilateral, ankle: bilateral and blake: bilateral aching, cramping and dull 3 1 year Worsened in recent months: Yes standing and walking analgesics (Ibuprofen 800mg), elevating extremities and compression stockings Reports muscle spasms of leg, bruising, fatigue, heaviness, restless legs and edema History of lower extremity trauma: No Superficial thrombophlebitis: No Family history of varicose veins: yes Has patient had previous lower extremity venous surgery: Yes Patient has previously received the following treatment(s) for lower extremity varicose veins: Reports vein ablation, sclerotherapy and foam therapy Does patient have a history of : no Does patient intend to have future pregnancies: no Has patient had lower extremity venous scan with relux testing: Yes Support hose used: Yes Problems walking or doing physical activity: Yes How does it affect you: often have to stop, rest, and elevate feet Do you walk much: Yes Do you stand much: Yes Bleeding signs: prolonged bleeding and excessive bruising Review of Systems ROS Narrative Daljit Olivas MD personally performed the services described in this documentation, as scribed by Daphney Ferrer RDMS in my presence and it is both accurate and complete. Daphney Olivas RDMS, am scribing for, and in the presence of, Dr. Daljit Clemens and in the presence of the patient. Status of ROS 10 or more systems reviewed and unremark able except as noted in history and below Cardiovascular Reports: edema Integumentary/Breast Reports: redness, skin pain, skin tenderness, skin swelling, new lesion and changes in skin color Neurological Reports: numbness in extremities and weakness in extremities Hematologic/Lymphatic Reports: easy bruising and easy bleeding [facility] Medical History (Updated 02/14/24 @ 12:29 by Daphney Ferrer) Phlebitis and thrombophlebitis of superficial vessels of lower extremities, bilateral ?I80.03 - Phlebitis and thrombophlebitis of superficial vessels of lower extremities, bilateral (ICD-10) Phlebitis and thrombophlebitis of superficial vessels of left lower extremity ?I80.02 - Phlebitis and thrombophlebitis of superficial vessels of left lower extremity (ICD-10) Cellulitis ?L03.90 - Cellulitis, unspecified (ICD-10) Left knee injury ?S89.92XA - Unspecified injury of left lower leg, initial encounter (ICD-10) Varicose veins of bilateral lower extremities with pain ?I83.813 - Varicose veins of bilateral lower extremities with pain (ICD-10) Surgical History (Updated 02/09/24 @ 10:26 by Weston Olson) Status post laser ablation of incompetent vein ?Z98.890 - Other specified postprocedural states (ICD-10) Status post laser ablation of incompetent vein ?Z98.890 - Other specified postprocedural states (ICD-10) Status post sclerotherapy of varicose veins ?Z98.890 - Other specified postprocedural states (ICD-10) ?Z86.79 - Personal history of other diseases of the circulatory system (ICD- 10) History of right hip replacement ?Z96.641 - Presence of right artificial hip joint (ICD-10) Family History (Updated 11/27/23 @ 07:32 by Weston Olson) Other Family history of COPD (chronic obstructive pulmonary disease) Heart disease Varicose veins of bilateral lower extremities with pain Social History (Updated 11/27/23 @ 07:31 by Weston Olson) Within the past year, how often did you have a drink containing alcohol: 2-3 times a week Smoking status: Never smoker Non-prescribed substance use: denies use Meds Home Medications and Allergies Home Medications ?Medication ?Instructions ?Recorded ?Confirmed ?Type ibuprofen 800 mg tablet 800 mg PO DAILY 02/21/23 02/21/23 History sertraline 50 mg tablet (Zoloft) 50 mg PO DAILY 02/21/23 02/21/23 History losartan .ROUTE 11/27/23 History Allergies Allergy/AdvReac Type Severity Reaction Status Date / Time No Known Drug Allergies Allergy Verified 11/27/23 07:30 Exam Narrative Exam Narrative: Improvement in color and swelling of left foot. Daljit Olivas MD personally performed the services described in this documentation, as scribed by Daphney Ferrer RDMS in my presence and it is both accurate and complete. Daphney Olivas RDMS am scribing for, and in the presence of, Dr. Daljit Clemens and in the presence of the patient. Results Imaging Venous US: Radiologist's impression: No evidence of DVT in left leg at this time. Superficial thrombus in multiple varicose veins. Daljit Olivas MD personally performed the services described in this documentation, as scribed by Daphney Ferrer RDMS in my presence and it is both accurate and complete. Daphney Olivas RDMS am scribing for, and in the presence of, Dr. Daljit Clemens and in the presence of the patient. Assessment and Plan Assessment and Plan (1) Phlebitis and thrombophlebitis of superficial vessels of left lower extremity: Plan Patient is to discontinue Xarelto and is finished with treatment at this time. Follow up in 1-2 years or as needed. Daljit Olivas MD personally performed the services described in this documentation, as scribed by Daphney Ferrer RDMS in my presence and it is both accurate and complete. Daphney Olivas RDMS am scribing for, and in the presence of, Dr. Daljit Clemens and in the presence of the patient.
--- NOTE | 2024-05-13 13:02 | VEIN_ITS ---
Patient Name: CARLOS ABEL MR#: [id number] : 1950 Exam Date: 05/13/2024 Ordering Doctor: DR DALJIT CLEMENS M.D. RADIOLOGY REPORT PROCEDURE: [facility] EST LMTD [facility] CENTER - OFFICE VISIT FOLLOW UP COMPARISON: [facility] EST LMTD, 03/11/2024. [facility] EST LMTD, 02/22/2024. PROGRESS NOTES: The patient reports no significant interval problems. The patient has had reduction in pain and swelling related to thrombophlebitis and deep vein thrombus. Patient did discontinue her anticoagulation due to the high cost. Physical exam demonstrates near complete resolution of bilateral lower extremity swelling erythema and warmth. A few scattered thrombosed varicose veins can be palpated, reduced in size from the prior exam. No significant varicose reticular veins are observed. Review of the ultrasound performed the same day demonstrates interval resolution of previously noted left leg deep vein thrombus. The patient's treatments are now complete. The patient was asked to return as necessary or in 1-2 years. VEIN/[facility] EST LMTD IMPRESSION: 1. Interval resolution of previously noted left leg deep vein thrombus PLAN: Follow-up as needed Nurse notes, history and physical were reviewed and confirmed, see attached forms. The nurse was present throughout the physical exam and consultation Dictated by: Daljit Clemens MD on 05/13/2024 at 14:21 Approved by: Daljit Clemens MD on 05/13/2024 at 14:23
--- NOTE | 2024-05-13 13:02 | VEIN_ITS ---
Patient Name: CARLOS ABEL MR#: [id number] : 1950 Exam Date: 05/13/2024 Ordering Doctor: DR DALJIT CLEMENS M.D. RADIOLOGY REPORT PROCEDURE: VC EXT VENOUS LT LIMITED COMPARISON: VC EXT VENOUS LT LIMITED, 03/11/2024. VC EXT VENOUS LT LIMITED, 02/22/2024. INDICATIONS: I80.02 - Phlebitis and thrombophlebitis of superficial veins left leg TECHNIQUE: Lower extremity morris scale and Duplex Doppler evaluation of the deep venous system from the inguinal ligament through the calf veins. FINDINGS: REGION: Left lower extremity. THROMBI: Negative for DVT. Improvement of left deep venous thrombosis. Superficial thrombus visualized in multiple varicose veins and in veins medial left foot. COMPRESSIBILITY: Non-compressible segments corresponding to thrombus FLOW: Areas of no flow corresponding to thrombus OTHER: Complex fluid collection medial left popliteal fossa measures 4.6 x 2.1 x 1.4 cm. CONCLUSION: No deep vein thrombus observed Dictated by: Daljit Clemens MD on 05/13/2024 at 13:26 Approved by: Daljit Clemens MD on 05/13/2024 at 13:28
--- OUTSIDE RECORDS SUMMARY | 2024-05-13 13:20 | XMS_ITS | CCD ---
Author Organization [facility] Care Team Providers Care Manager Architecture Name Role Phone MECHELLE WOMACK Admitting Unavailable MECHELLE WOMACK Attending Unavailable HIESTAND, DR JONNY Pro Primary Care Unavailable Zieber, DR Griffith Consulting Unavailable HIGHLANDER, MECHELLE Overton [...] DAVE Consulting Unavailable KLYM, CADEN Consulting Unavailable TANILLIS, DR SAMANTHA Stovall Admitting Unavailabl e EUFEMIA, DR SAMANTHA Stovall Attending Unavailabl e HIESTAND, DR JONNY Pro Primary Care Unavailable EUFEMIA, DR SAMANTHA Stovall Consulting Unavailabl e MECHELLE WOMACK Admitting Unavailable MECHELLE WOMACK Attending Unavailable KEVESTHEATHER, DR JONNY Pro Primary Care Unavailable MECHELLE WOMACK Admitting Unavailable MECHELLE WOMACK Attending Unavailable HIESTAND, DR JONNY Pro Primary Care Unavailable EUFEMIA, DR SAMANTHA Stovall Admitting Unavailabl e GRDOUGLAS, DR SAMANTHA Stovall Attending Unavailabl e HIESTAND, DR JONNY Pro Primary Care Unavailable EUFEMIA, DR SAMANTHA Stovall Consulting UnavailGUI Arroyo Consulting Unavailable MECHELLE WOMACK Admitting Unavailable MECHELLE WOMACK Attending Unavailable HIESTAND, DR JONNY Pro Primary Care Unavailable Jonny Jeffries MD Primary Care Provider JONNY JEFFRIES Attending Unavailable JONNY JEFFRIES Referring Unavailable MERVIN, JONNY Pro Primary Care Unavailable JONNY JEFFRIES Attending Unavailable HIESTJONNY ROMERO Referring Unavailable HIESTHEATHER, JONNY Pro Primary Care Unavailable JONNY JEFFRIES Primary Care Unavailable IRMA FRAIRE Attending Unavailable Jonny Jeffries MD Primary Care Provider Jonny Jeffries MD Primary Care Provider TALIB GUTIERRES Attending Unavailable TALIB GUTIERRES Referring Unavailable TEN GREENE Attending Unavailable TEN GREENE Attending Unavailable TEN GREENE Attending Unavailable TALIB GUTIERRES Attending Unavailable CORY VARMA Attending Unavailable CORY VARMA Referring Unavailable CORY VARMA Attending Unavailable Allergies Allergy Classification Reported Allergen(s) Allergy Type Date of Onset Reaction(s) Facility (1 source) bee venom Drug allergy (disorder) [facility] Medications Current Medications Medication Drug Class(es) Dates Sig (Normalized) Sig (Original) ibuprofen 800 mg oral tablet (17 sources) Nonsteroidal Anti-inflammatory Drug Start: 02-24-2023 End: 03-26-2024 take 1 tablet by mouth every eight hours as needed for pain ibuprofen (MOTRIN) 800 mg tablet Take 1 tablet (800 mg total) by mouth every 8 (eight) hours as needed for pain. 90 tablet 03/26/2024 Active losartan potassium 50 mg oral tablet (16 sources) Angiotensin 2 Receptor Campos Start: 08-07-2023 End: 05-09-2024 take 1 tablet by mouth in the morning losartan (COZAAR) 50 mg tablet Indications: Primary hypertension Take 1 tablet (50 mg total) by mouth in the morning. 90 tablet 05/09/2024 Active Start: 05-08-2023 take 1 tablet by nithin th in the morning losartan (COZAAR) 50 mg tablet Indications: Primary hypertension Take 1 tablet (50 mg total) by mouth in the morning. 90 tablet 1 05/08/2023 Active multivit-min/ferrous fumarat e (MULTI VITAMIN ORAL) (6 sources) multivit-min/augustus aston fumarate (MULTI VITAMIN ORAL) Take by mouth daily. Active multivit-min/augustus aston fumarate (MULTI VITAMIN ORAL) Take by mouth daily. 0 Active Nutritional Supplements (ADULT NUTRITIONAL SUPPLEMENT + PO) (9 sources) Nutritional Supplements (ADULT NUTRITIONAL SUPPLEMENT + PO) Take by mouth UMARY Active rivaroxaban 15 mg oral tablet (5 sources) Factor Xa Inhibitor Start: 10-21-202 4 take 1 tablet by mouth in the morning Xarelto 15 MG tablet Take 15 mg by mouth in the morning and 15 mg before bedtime. 02/19/2024 Active sertraline 50 mg oral tablet (16 sources) Serotonin Reuptake Inhibitor Start: 0 End: 4 take 1 tablet by mouth in the morning sertraline (ZOLOFT) 50 mg tablet Take 1 tablet (50 mg total) by mouth in the morning. 90 tablet 01/31/2024 Active zolpidem tartrate 10 mg oral tablet (1 source) gamma-Aminobutyric Acid-ergic Agonist Start: 3 take 1 tablet by mouth once daily as needed for sleep zolpidem (AMBIEN) 10 mg tablet Indications: Insomnia, unspecified type Take 1 tablet (10 mg total) by mouth nightly as needed for sleep. 10 tablet 0 04/27/2023 Active Completed/Discontinued Medications Medication Drug Class(es) Dates Sig (Normalized) Sig (Original) 1 ml methylPREDNISolone acetate 40 mg/ml injection (4 sources) Corticosteroid Start: 4 End: 4 methylPREDNISolone acetate (DEPO-Medrol) injection 40 mg Start: 03-18-2024 End: 03-18-2024 40 mg, Intra-articular, Once PRN Procedure, Starting on 03/18/24 at 1355, For 1 dose Problems Active Problems Problem Classification Problem Date [...] WITHOUT ESOPHAGITIS] Onset: 04-29-2021 Chronic Essential hypertension (16 sources) Essential (primary) hypertension; Translations: [Hypertensive disorder] Onset: 10-01-2020 Chronic Gastritis and duodenitis (1 source) Unspecified chronic gastritis without bleeding; Translations: [UNS CHRONIC GASTRITIS W/O BLEEDING] Onset: 05-24-2021 Chronic Mood disorders (6 sources) Depressive disorder; Translations: [Depression] 10-01-2020 Chronic Osteoarthritis (6 sources) Arthritis of left knee; Translations: [Unilateral primary osteoarthritis, left knee] 03-18-2024 Chronic Other connective tissue disease (1 source) Presence of right artificial hip joint; Translations: [PRESENCE RIGHT ARTIFICIAL HIP JOINT] Onset: 05-24-2021 Chronic Other connective tissue disease (1 source) Other specified soft tissue disorders; Translations: [Other specified soft tissue disorders] Onset: 02-18-2024 Episodic Other connective tissue disease (2 sources) Leg swelling symptom Onset: 02-18-2024 Episodic Other non-traumatic joint disorders (4 sources) Pain in left knee; Translations: [Pain in joint, lower leg] 03-17-2024 Episodic Other nutritional; endocrine; and metabolic disorders [...] UNSPECIFIED] Onset: 04-29-2021 Chronic Residual codes; unclassified (6 sources) Obstructive sleep apnea syndrome; Translations: [Obstructive [...] Date Documented Da te Episodic/Chronic Mood disorders (6 sources) Mood disorders Onset: 12-23-2022 12-23-2022 Other aftercare (1 source) 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; Translations: [OTH CORRECTION CURRENT DRUG THERAPY] Onset: 05-24-2021 Episodic Other [...] OF RIGHT LOWER LIMB] Onset: 04-29-2021 Episodic Spondylosis; intervertebral disc disorders; other back problems (2 sources) Acute back pain with sciatica; Translations: [Lumbago with sciatica, right side] 01-09-2024 Episodic Results Test Name Value Interpretation Reference Range Facility No Panel Informationon 03-18 Cory Varma NP 03/18/2024 9:47 PM L Inj/Asp: L knee on 03/18/2024 1:55 PM Indications: pain Details: 20 G needle, anterolateral approach Medications: 40 mg methylPREDNISolone acetate 40 MG/ML UTILIZING ASEPTIC TECHNIQUE PT GIVEN INJECTION IN LEFT KNEE, NEUROVASC INTACT S/P INJ, TOLERATED WELL Procedure, treatment alternatives, risks and benefits explained, specific risks discussed. Consent was given by the patient. [facility] Fibrin D-dimer DDU (PPP) [Ma ss/Vol]on 02-18-2024 D DIMER 997 ng/mL DDU High <255 [facility] Comment on above: Result Comment: Results >=255ng/mL [...] level. Performed By: #### [id number] #### [facility] ([id number]) [address] [place] [address], [place] [address] 36on 01-12-2022 36 Coordinator discusse d with [...] discontinuing Nsaid use for pain control. Normal [facility] ABO AND RH TYPEon 01-11-2022 ABO and Rh group Nom (Bld) ABO Rh Typing B Rh Positive Normal [facility] Comment on above: Performed By: #### A JANELLE #### [facility] [address] [address] [address] Rufino Thomas LIPID PROFILEon 01-11-2022 CHOL-HDL RATIO NORM SEE BELOW Normal [facility] Comment on above: Result Comment: 3.3 - 4.4 LOW RISK 4.4 - 7.1 AVERAGE RISK 7.1 - 11.0 MODERATE RISK >11.0 HIGH RISK Performed By: #### L IPID, CMP #### [facility] [address] [place], [place] [address] Dr. Rufino Thomas Cholesterol [Mass/Vol] 227 mg/dL Critically high <=200 [facility] Comment on above: Performed By: #### L IPID, CMP #### [facility] [address] [address] [address] Rufino Thomas Cholesterol in HDL [Mass/Vol] 63 mg/dL Critically high 40-60 [facility] Comment on above: Performed By: #### L IPID, CMP #### [facility] [address] [address] [address] Rufino Thomas Cholesterol in LDL [Mass/Vol] 151.4 mg/dL Normal [facility] Comment on above: Performed By: #### L IPID, CMP #### [facility] [address] [address] [address] Rufino Thomas Cholesterol.total/ Cholesterol in HDL [Mass ratio] 3.6 {ratio} Normal [facility] Comment on above: Performed By: #### L IPID, CMP #### [facility] [address] [address] [address] Rufino Thomas HDL NORMAL > or = 60 mg/dl - LO W CARDIOVASCULAR RISK <40 mg/dl - HIGH CARDIOVASCULAR RISK Normal [facility] Comment on above: Performed By: #### L IPID, CMP #### [facility] [address] [address] [address] Rufino Thomas LDL CALC NORMAL SEE BELOW Normal [facility] Comment on above: Result Comment: <100 mg/dl OPTIMAL 100 - 129 mg/dl NEAR OR ABOVE OPTIMAL 130 - 159 mg/dl BORDERLINE HIGH 160 - 189 mg/dl HIGH >190 mg/dl VERY HIGH Performed By: #### L IPID, CMP #### [facility] [address] [address] [address] Rufino Thomas Triglyceride [Mass/Vol] 63 mg/dL Normal <=150 [facility] Comment on above: Performed By: #### L IPID, CMP #### [facility] [address] [address] [address] Rufino Thomas VLDL CALC 12.6 mg/dL Normal [facility] Comment on above: Performed By: #### L IPID, CMP #### [facility] [address] [address] [address] Rufino Thomas PROF 14(COMP METB)on 022 Albumin [Mass/Vol] 3.4 g/dL Normal 3.4-5.0 [facility] Comment on above: Performed By: #### L IPID, CMP #### [facility] [address] [address] [address] Rufino Thomas Albumin/Globulin [Mass ratio] 0.9 {ratio} Normal [facility] Comment on above: Performed By: #### L IPID, CMP #### [facility] [address] [address] [address] Rufino Thomas ALP [Catalytic activity/Vol] 61 U/L Normal 46-116 [facility] Comment on above: Performed By: #### L IPID, CMP #### [facility] [address] [address] [address] Rufino Thomas ALT [Catalytic activity/Vol] 41 U/L Normal 14-59 [facility] Comment on above: Performed By: #### L IPID, CMP #### [facility] [address] [address] [address] Rufino Thomas Anion gap [Moles/Vol] 9.9 mmol/L Normal [facility] Comment on above: Performed By: #### L IPID, CMP #### [facility] [address] [address] [address] Rufino Thomas AST [Catalytic activity/Vol] 30 U/L Normal 15-37 [facility] Comment on above: Performed By: #### L IPID, CMP #### [facility] [address] [address] [address] Rufino Thomas Bilirubin [Mass/Vol] 0.4 mg/dL Normal 0.2-1.0 [facility] Comment on above: Performed By: #### L IPID, CMP #### [facility] [address] [address] [address] Rufino Thomas Calcium [Mass/Vol] 8.8 mg/dL Normal 8.5-10.1 [facility] Comment on above: Performed By: #### L IPID, CMP #### [facility] [address] [address] [address] Rufino Thomas Chloride [Moles/Vol] 106 mmol/L Normal 98-107 [facility] Comment on above: Performed By: #### L IPID, CMP #### [facility] [address] [address] [address] Rufino Thomas CO2 [Moles/Vol] 27.3 mmol/L Normal 21.0-32.0 [facility] Comment on above: Performed By: #### L IPID, CMP #### [facility] [address] [address] [address] Rufino Thomas Creatinine [Mass/Vol] 0.71 mg/dL Normal 0.55-1.02 [facility] Comment on above: Performed By: #### L IPID, CMP #### [facility] [address] [place] [address] Dr. Rufino Thomas EGFR-AF KENYAN >60 Normal >=60 [facility] Comment on above: Performed By: #### L IPID, CMP #### [facility] [address] [place] [address] Dr. Rufino Thomas EGFR-NON AF KENYAN >60 Normal >=60 [facility] Comment on above: Performed By: #### L IPID, CMP #### [facility] [address] [address] [address] Rufino Thomas Globulin (S) [Mass/Vol] 3.9 g/dL Normal [facility] Comment on above: Performed By: #### L IPID, CMP #### [facility] [address] [address] [address] Rufino Thomas Glucose [Mass/Vol] 95 mg/dL Normal 74-106 [facility] Comment on above: Performed By: #### L IPID, CMP #### [facility] [address] [address] [address] Rufino Thomas Potassium [Moles/Vol] 4.2 mmol/L Normal 3.5-5.1 [facility] Comment on above: Performed By: #### L IPID, CMP #### [facility] [address] [address] [address] Rufino Thomas Protein [Mass/Vol] 7.3 g/dL Normal 6.4-8.2 [facility] Comment on above: Performed By: #### L IPID, CMP #### [facility] [address] [address] [address] Rufino Thomas Sodium [Moles/Vol] 139 mmol/L Normal 136-145 [facility] Comment on above: Performed By: #### L IPID, CMP #### [facility] [address] [address] [address] Rufino Thomas Urea nitrogen [Mass/Vol] 16.0 mg/dL Normal 7.0-18.0 [facility] Comment on above: Performed By: #### L IPID, CMP #### [facility] [address] [address] [address] Rufino Thomas Urea nitrogen/Creatinin e [Mass ratio] 22.5 mg/mg Normal [facility] Comment on above: Performed By: #### L IPID, CMP #### [facility] [address] [address] [address] Rufino Thomas XR ANKLE MILTON MIN [...] SILVIA MOJICA Date: 2021-10-20 17:48 Normal [facility] H PYLORI TISSUEon 05-19-2021 H PYL TISSUE, UREASE Negative Normal NEGATIVE [facility] Comment on above: Performed By: #### H PYLT #### [facility] [address] [place] [address] [address] Rufino Thomas Covid-19 PCR (CVDTB)on 05-01 SARS-CoV-2 (COVID-19) RNA GIOVANNY+probe Ql (Unsp spec) Not detected Normal NOT DETECTED [facility] Comment on above: Result Comment: This test is not yet approved or cleared by the [place] FDA. When there are no FDA-approved or cleared tests available, and other criteria are met, FDA can make tests available under an emergency access mechanism called an Emergency Use Authorization (EUA). The EUA for this test is supported by the [place] of Health and Human Service's (HHS's) declaration [...] consistent with SARS-CoV-2. Performed By: #### [facility] #### [facility] [address] [place] [address] Dr. Rufino Thomas Covid-19 PCR (CVDTB)on SARS-CoV-2 (COVID-19) RNA GIOVANNY+probe Ql (Unsp spec) Not detected Normal NOT DETECTED [facility] Comment on above: Result Comment: This test is not yet approved or cleared by the [place] FDA. When there are no FDA-approved or cleared tests available, and other criteria are met, FDA can make tests available under an emergency access mechanism called an Emergency Use Authorization (EUA). The EUA for this test is supported by the Secretary Receptionist of Health and Human Service's (HHS's) declaration [...] consistent with SARS-CoV-2. Performed By: #### [facility] #### [facility] [address] [address] [address] Rufino Thomas US ARNAV DOP LEG RTon 03-06-20 21 US ARNAV DOP LEG RT ULTRASOUND RIGHT LOW ER EXTREMITY COLOR VENOUS DUPLEX HISTORY: Swelling. COMPARISON: [...] by: BLANQUITA KING Date: 2021-03-06 14:58 Normal [facility] XR KNEE RT 4V or >on 021 XR KNEE RT 4V or > RIGHT KNEE FOUR VIEW S: 03/06/2021 1:44 PM EDT Clinical Data: Pain. No injury Comparison: No previous No evidence of acute fracture or dislocation. Mcdaniel thin probable chronic lucencies proximal tibial shaft are relatively well-defined No joint effusion. Infrapatellar fat is preserved. There is some soft tissue density prominence overlying the patella IMPRESSION: 1. Some soft tissue density prominence overlying the patella. Clinical correlation is needed. 2. No evidence of acute fracture or dislocation Electronically authenticated by: CADEN JEWELL Date: 2021-03-06 14:56 Normal [facility] Vital Signs Date Time Vital Sign Value Performing Clinician Nicole alfred 05-08-2023 14:32-0500 Diastolic blood pressure 106 mm[Hg] Jonny Jeffries MD Work Phone: [facility] 05-08-2023 14:32-0500 Heart rate 88 /min Jonny Jeffries MD Work Phone: [facility] 05-08-2023 14:32-0500 Systolic blood pressure 173 mm[Hg] Jonny Jeffries MD Work Phone: [facility] Encounters Encounter Date Encounter Type Care Provider Facility Start: 05-09-2024 End: 05-09-2024 Refill Bonnie Barbosa [facility] Comment on above: Primary hypertension Start: 04-01-2024 End: 04-01-2024 Bamboo flowsheet Cory B Apling HUB BANDER Work Phone: [facility] Start: 04-01-2024 End: 04-01-2024 Bamboo flowsheet Cory B Apling HUB BANDER Work Phone: [facility] Start: 04-01-2024 End: 04-01-2024 ambulatory CORY B APLING Not Available Start: 04-01-2024 End: 04-01-2024 Office outpatient visit 15 minutes Cory B Apling HUB BANDER Work Phone: [facility] Comment on above: Left knee pain, unsp ecified chronicity (Primary Dx); Arthritis of left knee Start: 03-26-2024 End: 03-26-2024 [facility]ill [facility] Barb[facility] Start: 03-18-2024 End: 03-18-2024 Bamboo flowsheet Cory B Apling HUB BANDER Work Phone: [facility] Start: 03-18-2024 End: 03-18-2024 Bamboo flowsheet Cory B Apling HUB BANDER Work Phone: [facility] Start: 03-18-2024 End: 03-18-2024 Office outpatient visit 25 minutes Cory B Apling HUB BANDER Work Phone: [facility] Comment on above: Left knee pain, unsp ecified chronicity (Primary Dx); Arthritis of left knee Start: 03-18-2024 End: 03-18-2024 ambulatory CORY B APLING Not Available Start: 02-18-2024 End: 02-18-2024 Emergency department patient visit JONNY JEFFRIES [facility] Start: 02-06-2024 End: 02-06-2024 Refill Bonnie Vieyrason ROTARY DRYER OPERATOR [facility] Comment on above: Primary hypertension Start: 01-31-2024 End: 01-31-2024 Refill Bonnie Barbosa ROTARY DRYER OPERATOR [facility] Start: 01-09-2024 End: 01-09-2024 Bamboo flowsheet Talib Gutierres HUB BANDER Work Phone: [facility] Start: 01-09-2024 End: 01-09-2024 Bamboo flowsheet Talib Gutierres HUB BANDER Work Phone: [facility] Start: 01-09-2024 End: 01-09-2024 Office outpatient visit 15 minutes Talib Gutierres HUB BANDER Work Phone: [facility] Comment on above: Acute right-sided lo w back pain with right-sided sciatica (Primary Dx) Start: 01-09-2024 End: 01-09-2024 ambulatory TALIB GUTIERRES Not Available Start: 11-06-2023 End: 11-06-2023 ambulatory [facility] Start: 10-30-2023 End: 10-30-2023 ambulatory TEN S RUSHER Not Available Start: 09-20-2023 End: 09-20-2023 ambulatory TEN S RUSHER Not Available Start: 09-05-2023 End: 09-05-2023 ambulatory TEN S RUSHER Not Available Start: 07-18-2023 End: 07-18-2023 ambulatory TALIB GUTIERRES Not Available Start: 05-08-2023 End: 05-08-2023 ambulatory [facility] Start: 05-08-2023 End: 05-08-2023 Office outpatient visit 15 minutes Jonny Jeffries MD Work Phone: [facility] Comment on above: Primary hypertension (Primary Dx) Start: 04-25-2023 Telephone encounter Jonny oliva MD Work Phone: [facility] Start: 01-11-2022 End: 01-12-[address] JONNY JEFFRIES Facility:[facility] Start: 10-20-2021 End: 10-21-2021 ambulatory MECHELLE WOMACK Facility:[facility] Start: 05-19-2021 Encounter for preprocedural laboratory examination DR SAMANTHA FALL [facility] Start: 05-19-2021 End: 05-19-[address] [...] Date Procedure Procedure Detail Performing Clinician Start: 03-18-2024 Arthrocentesis aspir &/inj major jt/bursa w/o us Cory Varma HUB B[employer]ER Work Phone: Start: 12-23-2022 Adult depression scr eening assessment Jonny Jeffries MD Work Phone: Start: 05-19-2021 Colonoscopy Jonny Hoyos Work Phone: Start: 12-24-2020 Mammography Jonny Hoyos Work Phone: Plan of Treatment Date Care Activity Detail Author Start: 09-20-2028 DTaP,Tdap and Td Vaccines (2 - Td or Tdap) DTaP,Tdap and Td Vaccines (2 - Td or Tdap) [facility] Start: 05-19-2026 Screening for malign ant neoplasm of colon Colonoscopy [facility] Start: 02-17-2025 Adult BMI Screening Adult BMI Screen ing [facility] Start: 02-17-2025 Tobacco Screening Tobacco Screening [facility] Start: 11-05-2024 Tobacco Screening Tobacco Screening [facility] Start: 07-16-2024 End: 07-16-2024 Patient encounter procedure 07/16/2024 2:00 PM EDT Office Visit [facility] [address] [place] [address] Talib Gutierres, HUB BANDER [address] [place] [address] [facility] Start: 06-20-2024 End: 06-20-2024 Patient encounter procedure 06/20/2024 1:30 PM EST Office Visit [facility] [address] [place] [address] [address] [place] [id number] Jonny Jeffries MD [address] [place] [address], [address] [place] [address] [facility] Start: 04-01-2024 End: 04-01-2024 Patient encounter procedure 04/01/2024 1:15 PM EST Office Visit [facility] [address] [place] [address] Cory Varma NP [address] [facility] [address] [place] [address] [facility] Start: 03-10-2024 Tobacco Screening Tobacco Screening [facility] Start: 01-09-2024 End: 01-09-2024 Patient encounter procedure 01/09/2024 1:30 PM EDT Office Visit [facility] [address] [facility] [address] [place] [address] Talib Gutierres, HUB BANDER [address] [place] [address] Arrived [facility] Comment on above: Arrived Start: 12-31-2023 COVID-19 Vaccine () COVID-19 Vaccine () [facility] Start: 12-31-2023 COVID-19 Vaccine ( season) COVID-19 Vaccine ( season) [facility] Start: 12-31-2023 Influenza vaccination P [facility] Start: 12-24-2023 Depression Screening Depression Scre ening [facility] Start: 12-24-2023 Fall Risk Screening Fall Risk Screen ing [facility] Start: 12-24-2023 Medicare Annual Well ness Visit Medicare Annual Wellness Visit [facility] Start: 12-30-2022 COVID-19 Vaccine ( season) COVID-19 Vaccine ( season) [facility] Start: 12-30-2022 Influenza vaccination Influenza Vacc ine [facility] Start: 11-26-2022 Adult BMI Screening Adult BMI Screen ing [facility] Start: 12-24-2021 Screening for malign ant neoplasm of breast Mammogram [facility] Start: 2017 Pneumococcal Vaccine : 65+ Years (1 of 1 - PCV) Pneumococcal Vaccine: 65+ Years (1 of 1 - PCV) [facility] Start: 2002 Administration of varicella zoster vaccine Zoster (Shingles) Vaccine (1 of 2) [facility] Start: 1970 Adult BMI Follow Up Plan Adult BMI Follow Up Plan [facility] Start: 1950 Screening for malign ant neoplasm of colon [facility] XR Knee - left 1 or 2 Views XR knee 1 or 2 views left Imaging Routine Left knee pain, unspecified chronicity 03/18/2024 1:31 PM EST [facility] Work Phone: Immunizations Immunization Date Immunization Notes Care Provider [facility] 07-11-2020 COVID-19, mRNA, LNP- S, PF, 30mcg/0.3mL Dose Jonny Jeffries MD Work Phone: [facility] 06-20-2020 COVID-19, mRNA, LNP- S, PF, 30mcg/0.3mL Dose Jonny Jeffries MD Work Phone: [facility] 09-20-2018 tetanus toxoid, redu luca diphtheria toxoid, and acellular pertussis vaccine, adsorbed Jonny Jeffries MD [email or web address] Payers Date Payer Category Payer Medicare (Managed Care) [facility] MEDICARE [id number] 2023 Medicare HMO [employer] MEDICARE [id number] 2023 Medicare [id number] 2019 Private Health Insurance [facility] AAR SUPPLEMENT [id number] 2019-Present [phone] [address] [place] [address] [id number] 2017 Medicare [id number] 1959 Medicare [id number] 1959 Unknown [id number] 1952 Unknown [id number] 2.16.840.1.535610.3.579 .2.593 1952 Unknown [id number] 2.16.840.1.198650.3.579 .2.593 1952 Unknown [id number] 2.16.840.1.046067.3.579 .2.593 1952 Unknown [id number] 2.16.840.1.749214.3.579 .2.593 1952 Unknown [id number] 2.16.840.1.096100.3.579 .2.593 1952 Unknown [id number] 2.16.840.1.784119.3.579 .2.593 1952 Unknown [id number] 2.16.840.1.664638.3.579 .2.593 1952 Unknown [id number] 2.16.840.1.079083.3.579 .2.593 1952 Unknown [id number] 2.16.840.1.632236.3.579 .2.593 1952 Unknown [id number] 2.16.840.1.637490.3.579 .2.1286 1952 Unknown [id number] 2.16.840.1.061702.3.579 .2.1286 1952 Unknown [id number] 2.16.840.1.981541.3.579 .2.1286 1952 Unknown [id number] 2.16.840.1.347458.3.579 .2.1259 1952 Unknown [id number] 2.16.840.1.259479.3.579 .2.1259 1952 Unknown [id number] 2.16.840.1.389202.3.579 .2.1259 1952 Unknown [id number] 2.16.840.1.617110.3.579 .2.1259 1952 Unknown [id number] 2.16.840.1.327051.3.579 .2.1259 1952 Unknown [id number] 2.16.840.1.837609.3.579 .2.1259 1952 Unknown [id number] 2.16.840.1.828388.3.579 .2.1259 1952 Unknown [id number] 2.16.840.1.837605.3.579 .2.1259 1952 Unknown [id number] 2.16.840.1.868976.3.579 .2.1259 Social History Date Type Detail Facility Start: 12-23-2022 End: 09-05-2023 Tobacco smoking status MAIS Never smoked tobacco [facility] Start: 12-23-2022 End: 09-05-2023 Tobacco use and exposure Smokeless tobacco non-user [facility] Start: 03-10-2023 End: 02-18-2024 Alcohol intake Current drinker of alcohol (finding) [facility] Start: 10-05-2021 End: 03-10-2023 Alcohol intake [facility] Start: 10-05-2021 End: 02-18-2024 Social connection and isolation panel [facility] Do you belong to any clubs or organizations such as anglican groups, unions, fraternal or athletic groups, or school groups? No [facility] Attends Club or Organization Meetings Not on file [facility] Are you now , , , , never or living with a partner? Never [facility] How often to you hav e a drink containing alcohol? 4 or more times a week [facility] How many standard dr inks containing alcohol do you have on a typical day? 1 or 2 [facility] How often do you hav e 6 or more drinks on 1 occasion? Never [facility] How hard is it for y ou to pay for the very basics like food, housing, medical care, and heating Somewhat hard [facility] Do you feel stress - tense, restless, nervous, or anxious, or unable to sleep at night because your mind is troubled all the time - these days [OSQ] Very much [facility] Start: 10-05-2021 Education 19 [facility] Start: 09-09-2020 Alcohol Comment alot weekly [facility] Start: 1950 Sex Assigned At Not on file [facility] Start: 09-05-2023 Alcohol Comment a few bottle of wine a week [facility] Start: 1950 Sex assigned at Female [facility] Start: 07-11-2023 Gender identity Identifies as female gender (finding) [facility] Start: 07-11-2023 Sexual orientation Heterosexual (finding) [facility] Start: 12-04-2014 Sex Female (finding) [facility] Clinical Notes 04-25-2023 to 05-09-2024 Telephone Encounter - Bonnie Barbosa CMA - 05/09/2024 2:08 PM ESTTelephone Encounter - Bonnie Barbosa CMA - 05/09/2024 2:08 PM Lizz Varma NP - 04/01/2024 1:15 PM EST Note Date & Type Note Facility 05-09-2024 Miscellaneous Notes Refill request documented in this encounter [facility] 05-09-2024 Telephone encounter Note Refill request [facility] 04-01-2024 History of Present illness Narrative Images from the original note were not included. Subjective Patient ID: Frieda De La Torre is a 73 y.o. female. LT Knee 2 weeks (03/18/2024) s/p Depo medrol injection with 50 % improvement and has been doing the AAOS website exercises with some improvement Pt went to [facility] ER on 02/18/24 for LT lower leg swelling, 10 days after she had had varicose vein lasering on both legs. 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 She is on xarelto for this. Notes she was standing in her garage and believes she may have have twisted her knee wrong and could barely walk in December, she made an appt but then it got better so she canceled. Notes she went on a trip to [place] Feb 22-Mar 08, and was inactive due to the knee pain. She notes she slipped and fell in pee on 03/29/24 LT knee pain diffuse in knee. Denies pain at rest. Pain at its worst 7/10 with certain movements (Steps) Denies giving out sensation. Denies cracking/popping. Denies locking/catching. Denies N/T. Admits on and off swelling in the knee not based off of activities. Admits 800 mg IBU BID, unsure if it helps. Denies waking at night due to taking gummies now. Using voltaren gel with unsure relief. [place]: [facility] ER 02/18/24, LT knee xrays 06/22/2021 noms, cane, IBU 800 MG, xrays noms 03/18/2024, depo medrol injection 03/18/24, AAOS Objective Left Knee Exam Tests Juan: Medial - positive Knee Musculoskeletal Exam Palpation Left Crepitus: patellofemoral Tenderness: present Medial joint line: mild Range of Motion Left Active extension: 0 Active flexion: 120 Instability Left Medial Juan test: positive Assessment/Plan Encounter Diagnoses: ICD-10-CM 1. Left knee pain, unspecified chronicity M25.562 2. Arthritis of left knee M17.12 Discussion of an MRI and she notes she will hold off for now. She notes she will call if needed, if not better would still recommend an MRI documented in this encounter [facility] 03-26-2024 Miscellaneous Notes Refill request documented in this encounter [facility] 03-26-2024 Telephone encounter Note Refill request [facility] 03-18-2024 History of Present illness Narrative Associated Order(s): L Inj/Asp: L knee Post-Procedure Diagnose(s): Arthritis of left knee Images from the original note were not included. Subjective Patient ID: Frieda De La Torre is a 73 y.o. female. LT Knee No studies Pt went to [facility] ER on 02/18/24 for LT lower leg swelling, 10 days after she had had varicose vein lasering on both legs. 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 She is on xarelto for this. Notes she was standing in her garage and believes she may have have twisted her knee wrong and could barely walk in December, she made an appt but then it got better so she canceled. Notes she went on a trip to [place] Feb 22-Mar 08, and was active. She purchased a cane while in [place], and this helps. LT knee pain diffuse in knee. Denies posterior pain. Denies thigh pain. Pain can be sharp occas. Denies pain at rest. Pain at worst 7/10 with certain movements. Admits occas giving out sensation. Denies cracking/popping. Denies locking/catching. Denies N/T. Admits on and off swelling in the knee. Admits 800 mg IBU BID, unsure if it helps. Admits waking at night. Denies ice, heat or creams. Pain worse with flexion. Difficulty getting in and out of car. Stairs are difficult. [place]: [facility] ER 02/18/24, LT knee xrays 06/22/2021 noms, cane, IBU 800 MG, xrays noms 03/18/2024 Objective Left Knee Exam Tests Juan: Medial - positive Knee Musculoskeletal Exam Gait Limp: right Inspection Left Erythema: none Effusion: none Edema: none Ecchymosis: none Palpation Left Crepitus: patellofemoral Tenderness: present Lateral joint line: mild Medial joint line: moderate Range of Motion Left Active extension: 0 Active flexion: 115 Strength Left Extension: 4-/5. Extension is affected by pain. Flexion: 4-/5. Flexion is affected by pain. Instability Left Medial Juan test: positive L Inj/Asp: L knee on 03/18/2024 1:55 PM Indications: pain Details: 20 G needle, anterolateral approach Medications: 40 mg methylPREDNISolone acetate 40 MG/ML UTILIZING ASEPTIC TECHNIQUE PT GIVEN INJECTION IN LEFT KNEE, NEUROVASC INTACT S/P INJ, TOLERATED WELL Procedure, treatment alternatives, risks and benefits explained, specific risks discussed. Consent was given by the patient. XR knee 1 or 2 views left Imaging Result: Xrays AP B/L WB and lateral of the left knee performed on March 18, 2024 demonstrates lateral compartment narrowing with less than 50 % joint space remaining. No fractures or swelling noted. Impression Lateral compartment arthritis left knee. Cory Varma STUDENT SUPPORT COUNSELOR Assessment/Plan Encounter Diagnoses: ICD-10-CM 1. Left knee pain, unspecified chronicity M25.562 XR knee 1 or 2 views left 2. Arthritis of left knee M17.12 If not much improvement would recommend an MRI of the knee and she understands this. AAOS website exercises given. Discussion of options, pt notes she would like an injection, side effects of bleeding and infection discussed, would like to proceed with the injection, using aspectic technique 40 mg of depo medrol was injected into the left medial knee, pt tolerated well, bandaid applied, may do activities as tolerated, f/u in 2 weeks. documented in this encounter [facility] 02-06-2024 Miscellaneous Notes Refill request documented in this encounter [facility] 02-06-2024 Telephone encounter Note Refill request [facility] 01-31-2024 Miscellaneous Notes Refill request documented in this encounter [facility] 01-31-2024 Telephone encounter Note Refill request [facility] 01-09-2024 History of Present illness Narrative Images from the original note were not included. Chief Complaint Patient presents with Right Hip - Follow-up HISTORY OF PRESENT ILLNESS: Guillermina De La Torre is an 73 y.o. @ female. 10 years 6 1/2 months s/p RT GILBERT 06/20/13. Pain x 1 week. Pain near RT SI and radiates down the back of her thigh. Pain with prolonged walking. Has been trying to walk a mile daily. Denies N/T. Denies giving out. ALLERGIES: No Known Allergies HOME MEDICATIONS: Current Outpatient Medications Medication Instructions ibuprofen 800 mg, Oral, Every 8 hours PRN losartan (COZAAR) 50 mg, Oral, Every morning Nutritional Supplements (ADULT NUTRITIONAL SUPPLEMENT + PO) Oral, UMARY sertraline (Zoloft) 50 MG tablet take 1 by Oral route every day Oral PHYSICAL EXAM: Right Hip Exam Tenderness Right hip tenderness location: SI. Range of Motion Right hip abduction: pain with testing. Flexion: normal External rotation: normal Internal rotation: normal Muscle Strength Abduction: 5/5 Adduction: 5/5 Flexion: 5/5 Other Erythema: absent Scars: present Sensation: normal Pulse: present Vitals: There is no height or weight on file to calculate BMI. IMAGING: ASSESSMENT: ICD-10-CM 1. Acute right-sided low back pain with right-sided sciatica M54.41 Procedures PLAN: Patient states that she had increased low back/SI pain when starting to walk. I reviewed stretches with patient and discussed MDP. She would like MDP and will stretch prior to and after exercising. Follow up as needed. Questions answered in laymen terms at the bedside. The diagnosis, home exercise plan and any ongoing restrictions/ recommendations reviewed. If unable to be reached in office, I recommend evaluation at nearest Emergency Room if any symptoms worsened or new symptoms develop for requiring urgent evaluation. Talib Gutierres GREETING CARD WRITER-BULK COOLER INSTALLER documented in this encounter [facility] 05-08-2023 History of Present illness Narrative Subjective Patient ID: Guillermina De [...] in the morning. documented in this encounter [facility] 04-25-2023 Miscellaneous Notes Guillermina called and said that she is unable to sleep at night. She thinks some of it is pain from her ankle. She said she has been on Ambien in the past and is wondering if she could get some Ambien? Please advise documented in this encounter [facility] 04-25-2023 Telephone encounter Note Guillermina called and said that she is unable to sleep at night. She thinks some of it is pain from her ankle. She said she has been on Ambien in the past and is wondering if she could get some Ambien? Please advise [facility] Evaluation note Diagnosis Primary hypertension- Primary Unspecified essential hypertension [facility] Primary hypertension Unspecified essential hypertension [facility] Diagnosis Left knee pain, unspecified chronicity- Primary Arthritis of left knee [facility] Left knee pain, unspecified chronicity- Primary Arthritis of left knee [facility] Diagnosis Acute right-sided low back pain with right-sided sciatica- Primary [facility] Diagnosis Primary hypertension Unspecified essential hypertension [...] and content) DATE CREATED AUTHOR 01/26/2022 [facility] DATE CREATED AUTHOR AUTHOR'S ORGANIZ ATION 02/22/2022 [facility] DATE CREATED AUTHOR AUTHOR'S ORGANIZ ATION 11/14/2023 [facility] DATE CREATED AUTHOR AUTHOR'S ORGANIZ ATION 02/20/2024 [facility] DATE CREATED AUTHOR AUTHOR'S ORGANIZ ATION 04/02/2024 [facility] EPIC Care Teams (unrecognized sec tion and content) Manager Architecture Relationship Specialty Start Date End Date Jonny Jeffries MD [address] [place] [address], [address] [place] [address] PCP - General Pediatrics 01/20/20 Manager Architecture Relationship Specialty Start Date End Date Jonny Jeffries MD [address] [place] [address] [address] [place] [address] PCP - General Pediatrics 01/20/20 Manager Architecture Relationship Specialty Start Date End Date Jonny Jeffries MD [address] [place] [address], [address] [place] [address] PCP - General Pediatrics 01/20/20 [facility] Nurse - [employer] 08/16/23 Manager Architecture Relationship Specialty Start Date End Date Jonny Jeffries MD [address] [place] [address], [address] [place] [address] PCP - General Pediatrics 01/20/20 [facility] Nurse - [employer] 08/16/23 Manager Architecture Relationship Specialty Start Date End Date Jonny Jeffries MD [address] [place] [address], [address] [place] [address] PCP - General Family Medicine 07/18/23 Manager Architecture Relationship Specialty Start Date End Date Jonny Jeffries MD [address] [place] [address], [address] [place] [address] PCP - General Family Medicine 07/18/23 Manager Architecture Relationship Specialty Start Date End Date Jonny Jeffries MD [address] [place] [address], [address] [place] [address] PCP - General Pediatrics 02/18/24 [facility] Nurse - [employer] 08/16/23 Manager Architecture Relationship Specialty Start Date End Date Jonny Jeffries MD [address] [place] [address], [address] [place] [address] PCP - General Family Medicine 07/18/23 Manager Architecture Relationship Specialty Start Date End Date Jonny Jeffries MD [address] [facility], [address] [place] [address] PCP - General Family Medicine 07/18/23 Manager Architecture Relationship Specialty Start Date End Date Jonny Jeffries MD [address] [facility], [address] [place] [address] PCP - General Pediatrics 02/18/24 Blanca Lujan RN [facility] Nurse - [employer] 04/10/24 Reason for Visit (unrecogniz ed section and content) Reason Comments Hypertension headaches Reason Onset Date Comments Med Refill 01/31/2024 Reason Onset Date Comments Med Refill 02/06/2024 Reason Comments Pain Reason Onset Date Comments Med Refill 03/26/2024 Reason Comments Follow-up Reason Onset Date Comments Med Refill 05/09/2024 FOR RECORDS PERTAINING TO PATIENTS WHO ARE [...] BE BASED ON THE PRIMARY CLINICAL RECORDS. [employer] provides no warranty or guarantee of the accuracy or completeness of information in this document.
--- NOTE | 2024-05-13 13:31 | W.VEIN ---
Discharge Plan Discharge Disposition: Home, Self-Care Discharge Medications: No Action losartan .ROUTE ibuprofen 800 mg tablet 800 mg PO DAILY sertraline [Zoloft] 50 mg tablet 50 mg PO DAILY Plan of Treatment: Discontinue Xarelto and follow up in 1-2 years Print Language: Turkmen Discharge Date/Time: 05/13/24 13:32
== END 2024-05-13 13:32 | disposition home or self-care (01) ==
PROVIDERS: PCP Radiology Diagnostic Radiology; Visit Provider Radiology Diagnostic Radiology
DX: I80.02 Phlebitis and thrombophlebitis of superficial vessels of left lower extremity (principal)
CPT/HCPCS: 93971; G0463

== ENCOUNTER 2024-06-05 11:47 | Outpatient (OUT) | payer MEDICARE, SELFPAY ==
--- OUTSIDE RECORDS SUMMARY | 2024-06-05 11:54 | XMS_ITS | CCD ---
Author Organization [facility] CliniSywy Care Team Providers Care Grand Scribe Name Role Phone MECHELLE WOMACK Admitting Unavailable [...] JONNY Pro Attending Unavailable HIESTAND, DR JONNY rPo Primary Care Unavailable HIESTAND, DR JONNY Pro Consulting Unavailable HIESTAND, DR JONNY Pro Primary Care Unavailable DAVE MEJÍA Admitting Unavailable ALFONZO, DAVE Attending Unavailable POLICARO, BLANQUITA Consulting Unavailable ALFONZO, DAVE Consulting Unavailable KLYM, CADEN Consulting Unavailable TANILLIS, DR SAMANTHA Stovall Admitting Unavailabl dwayne FALL, DR SAMANTHA Stovall Attending Unavailabl e HIESTAND, [...] bee venom Drug allergy (disorder) [facility] Repository Medications Current Medications Medication Drug [...] 12-23-2022 12-23-2022 Other aftercare (1 source) 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 Consent was given by the patient. Critical access hospital Fibrin D-dimer DDU (PPP) [Ma ss/Vol]on 02-18-2024 D DIMER 997 ng/mL DDU High <255 [facility] Comment on above: Result Comment: Results >=255ng/mL [...] level. Performed By: #### 4 [id number] #### [facility] ([id number]) [address] [place] [address], [place] [address] 36on 01-12-2022 36 Coordinator discusse d with [...] discontinuing Nsaid use for pain control. Normal [facility] ABO AND RH TYPEon 01-11-2022 ABO and Rh group Nom (Bld) ABO Rh Typing B Rh Positive Normal [facility] Comment on above: Performed By: #### A JANELLE #### [facility] [address] [address] [address] Rufino Thomas LIPID PROFILEon 01-11-2022 CHOL-HDL RATIO NORM SEE BELOW Normal [facility] Comment on above: Result Comment: 3.3 - 4.4 LOW RISK 4.4 - 7.1 AVERAGE RISK 7.1 - 11.0 MODERATE RISK >11.0 HIGH RISK Performed By: #### L IPID, CMP #### [facility] [address] [place], [place] [address] Dr. Rufino Thomas Cholesterol [Mass/Vol] 227 mg/dL Critically high <=200 [facility] Comment on above: Performed By: #### L IPID, CMP #### [facility] [address] [address] [address] Rufino Thomas Cholesterol in HDL [Mass/Vol] 63 mg/dL Critically high 40-60 [facility] Comment on above: Performed By: #### L IPID, CMP #### [facility] [address] [address] [address] Rufino Thomas Cholesterol in LDL [Mass/Vol] 151.4 mg/dL Normal [facility] Comment on above: Performed By: #### L IPID, CMP #### [facility] [address] [address] [address] Rufino Thomas Cholesterol.total/ Cholesterol in HDL [Mass ratio] 3.6 {ratio} Normal [facility] Comment on above: Performed By: #### L IPID, CMP #### [facility] [address] [address] [address] Rufino Thomas HDL NORMAL > or = 60 mg/dl - LO W CARDIOVASCULAR RISK <40 mg/dl - HIGH CARDIOVASCULAR RISK Normal [facility] Comment on above: Performed By: #### L IPID, CMP #### [facility] [address] [address] [address] Rufino Thomas LDL CALC NORMAL SEE BELOW Normal [facility] Comment on above: Result Comment: <100 mg/dl OPTIMAL 100 - 129 mg/dl NEAR OR ABOVE OPTIMAL 130 - 159 mg/dl BORDERLINE HIGH 160 - 189 mg/dl HIGH >190 mg/dl VERY HIGH Performed By: #### L IPID, CMP #### [facility] [address] [address] [address] Rufino Thomas Triglyceride [Mass/Vol] 63 mg/dL Normal <=150 [facility] Comment on above: Performed By: #### L IPID, CMP #### [facility] [address] [address] [address] Rufino Thomas VLDL CALC 12.6 mg/dL Normal [facility] Comment on above: Performed By: #### L IPID, CMP #### [facility] [address] [address] [address] Rufino Thomas PROF 14(COMP METB)on 022 Albumin [Mass/Vol] 3.4 g/dL Normal 3.4-5.0 [facility] Comment on above: Performed By: #### L IPID, CMP #### [facility] [address] [address] [address] Rufino Thomas Albumin/Globulin [Mass ratio] 0.9 {ratio} Normal [facility] Comment on above: Performed By: #### L IPID, CMP #### [facility] [address] [address] [address] Rufino Thomas ALP [Catalytic activity/Vol] 61 U/L Normal 46-116 [facility] Comment on above: Performed By: #### L IPID, CMP #### [facility] [address] [address] [address] Rufino Thomas ALT [Catalytic activity/Vol] 41 U/L Normal 14-59 [facility] Comment on above: Performed By: #### L IPID, CMP #### [facility] [address] [address] [address] Rufino Thomas Anion gap [Moles/Vol] 9.9 mmol/L Normal [facility] Comment on above: Performed By: #### L IPID, CMP #### [facility] [address] [address] [address] Rufino Thomas AST [Catalytic activity/Vol] 30 U/L Normal 15-37 [facility] Comment on above: Performed By: #### L IPID, CMP #### [facility] [address] [address] [address] Rufino Thomas Bilirubin [Mass/Vol] 0.4 mg/dL Normal 0.2-1.0 [facility] Comment on above: Performed By: #### L IPID, CMP #### [facility] [address] [address] [address] Rufino Thomas Calcium [Mass/Vol] 8.8 mg/dL Normal 8.5-10.1 [facility] Comment on above: Performed By: #### L IPID, CMP #### [facility] [address] [address] [address] Rufino Thomas Chloride [Moles/Vol] 106 mmol/L Normal 98-107 [facility] Comment on above: Performed By: #### L IPID, CMP #### [facility] [address] [address] [address] Rufino Thomas CO2 [Moles/Vol] 27.3 mmol/L Normal 21.0-32.0 [facility] Comment on above: Performed By: #### L IPID, CMP #### [facility] [address] [address] [address] Rufino Thomas Creatinine [Mass/Vol] 0.71 mg/dL Normal 0.55-1.02 [facility] Comment on above: Performed By: #### L IPID, CMP #### [facility] [address] [place] [address] Dr. Rufino Thomas EGFR-AF IRANIAN >60 Normal >=60 [facility] Comment on above: Performed By: #### L IPID, CMP #### [facility] [address] [place] [address] Dr. Rufino Thomas EGFR-NON AF IRANIAN >60 Normal >=60 [facility] Comment on above: Performed By: #### L IPID, CMP #### [facility] [address] [address] [address] Rufino Thomas Globulin (S) [Mass/Vol] 3.9 g/dL Normal [facility] Comment on above: Performed By: #### L IPID, CMP #### [facility] [address] [address] [address] Rufino Thomas Glucose [Mass/Vol] 95 mg/dL Normal 74-106 [facility] Comment on above: Performed By: #### L IPID, CMP #### [facility] [address] [address] [address] Rufino Thomas Potassium [Moles/Vol] 4.2 mmol/L Normal 3.5-5.1 [facility] Comment on above: Performed By: #### L IPID, CMP #### [facility] [address] [address] [address] Rufino Thomas Protein [Mass/Vol] 7.3 g/dL Normal 6.4-8.2 [facility] Comment on above: Performed By: #### L IPID, CMP #### [facility] [address] [address] [address] Rufino Thomas Sodium [Moles/Vol] 139 mmol/L Normal 136-145 [facility] Comment on above: Performed By: #### L IPID, CMP #### [facility] [address] [address] [address] Rufino Thomas Urea nitrogen [Mass/Vol] 16.0 mg/dL Normal 7.0-18.0 [facility] Comment on above: Performed By: #### L IPID, CMP #### [facility] [address] [address] [address] Rufino Thomas Urea nitrogen/Creatinin e [Mass ratio] 22.5 mg/mg Normal [facility] Comment on above: Performed By: #### L IPID, CMP #### [facility] [address] [address] [address] Rufino Thomas XR ANKLE MILTON MIN [...] MOJICA Date: 2021-10-20 17:48 Normal [facility] H PYLORI TISSUEon 05-19-2021 H PYL TISSUE, UREASE Negative Normal NEGATIVE [facility] Comment on above: Performed By: #### H PYLT #### [facility] [address] [place] [address] [address] [address] Rufino Thomas Covid-19 PCR (CVDTB)on 05-01 SARS-CoV-2 (COVID-19) RNA GIOVANNY+probe Ql (Unsp spec) Not detected Normal NOT DETECTED [facility] Comment on above: Result Comment: This test is not yet approved or cleared by the [place] FDA. When there are no FDA-approved or cleared tests available, and other criteria are met, FDA can make tests available under an emergency access mechanism called an Emergency Use Authorization (EUA). The EUA for this test is supported by the [place] of Health and Human Service's (HHS's) declaration [...] consistent with SARS-CoV-2. Performed By: #### [facility] #### [facility] [address] [place] [address] Dr. Rufino Thomas Covid-19 PCR (CVDTB)on SARS-CoV-2 (COVID-19) RNA GIOVANNY+probe Ql (Unsp spec) Not detected Normal NOT DETECTED [facility] Comment on above: Result Comment: This test is not yet approved or cleared by the [place] FDA. When there are no FDA-approved or cleared tests available, and other criteria are met, FDA can make tests available under an emergency access mechanism called an Emergency Use Authorization (EUA). The EUA for this test is supported by the [place] of Health and Human Service's (HHS's) declaration [...] consistent with SARS-CoV-2. Performed By: #### [facility] #### [facility] [address] [address] [address] Rufino Thomas US ARNAV DOP LEG [...] by: BLANQUITA KING Date: 2021-03-06 14:58 Normal [facility] XR KNEE RT 4V or >on 021 XR KNEE RT 4V or > RIGHT KNEE FOUR VIEW S: 03/06/2021 1:44 PM EDT Clinical Data: Pain. No injury Comparison: No previous No evidence of acute fracture or dislocation. [place] thin probable chronic lucencies proximal tibial shaft are relatively well-defined No joint effusion. Infrapatellar fat is preserved. There is some soft tissue density prominence overlying the patella IMPRESSION: 1. Some soft tissue density prominence overlying the patella. Clinical correlation is needed. 2. No evidence of acute fracture or dislocation Electronically authenticated by: CADEN JEWELL Date: 2021-03-06 14:56 Normal [facility] Vital Signs Date Time Vital Sign Value Performing Clinician Nicole alfred 05-08-2023 14:32-0500 Diastolic blood pressure 106 mm[Hg] Jonny Jeffries MD Work Phone: [facility] 05-08-2023 14:32-0500 Heart rate 88 /min Jonny Jeffries MD Work Phone: [facility] 05-08-2023 14:32-0500 Systolic blood pressure 173 mm[Hg] Jonny Jeffries MD Work Phone: [facility] Encounters Encounter Date Encounter Type Care Provider Facility Start: 05-09-2024 End: 05-09-2024 Refill [facility] Barb[facility] Comment on above: Primary hypertension Start: 04-01-2024 End: 04-01-2024 Bamboo flowsheet Cory B Apling FILM PROJECTOR OPERATOR Work Phone: [facility] Start: 04-01-2024 End: 04-01-2024 Bamboo flowsheet Cory B Apling FILM PROJECTOR OPERATOR Work Phone: [facility] Start: 04-01-2024 End: 04-01-2024 ambulatory CORY B APLING Not Available Start: 04-01-2024 End: 04-01-2024 Office outpatient visit 15 minutes Cory B Apling FILM PROJECTOR OPERATOR Work Phone: [facility] Comment on above: Left knee pain, unsp ecified chronicity (Primary Dx); Arthritis of left knee Start: 03-26-2024 End: 03-26-2024 [facility] Start: 03-18-2024 End: 03-18-2024 Bamboo flowsheet Cory B Apling FILM PROJECTOR OPERATOR Work Phone: [facility] Start: 03-18-2024 End: 03-18-2024 Bamboo flowsheet Cory B Apling FILM PROJECTOR OPERATOR Work Phone: [facility] Start: 03-18-2024 End: 03-18-2024 Office outpatient visit 25 minutes Cory B Apling FILM PROJECTOR OPERATOR Work Phone: [facility] Comment on above: Left knee pain, unsp ecified chronicity (Primary Dx); Arthritis of left knee Start: 03-18-2024 End: 03-18-2024 ambulatory CORY B APLING Not Available Start: 02-18-2024 End: 02-18-2024 Emergency department patient visit JONNY JEFFRIES [facility] Start: 02-06-2024 End: 02-06-2024 Refill Bonnie Vieyrason SUGARCANE RESEARCH TECHNICIAN [facility] Comment on above: Primary hypertension Start: 01-31-2024 End: 01-31-2024 Refill Bonnie Barbosa SUGARCANE RESEARCH TECHNICIAN [facility] Start: 01-09-2024 End: 01-09-2024 Bamboo flowsheet Talib Gutierres FILM PROJECTOR OPERATOR Work Phone: [facility] Start: 01-09-2024 End: 01-09-2024 Bamboo flowsheet Talib Gutierres FILM PROJECTOR OPERATOR Work Phone: [facility] Start: 01-09-2024 End: 01-09-2024 Office outpatient visit 15 minutes Talib Gutierres FILM PROJECTOR OPERATOR Work Phone: [facility] Comment on above: Acute right-sided lo w back pain with right-sided sciatica (Primary Dx) Start: 01-09-2024 End: 01-09-2024 ambulatory TALIB GUTIERRES Not Available Start: 11-06-2023 End: 11-06-2023 ambulatory [facility] Start: 10-30-2023 End: 10-30-2023 ambulatory TEN S RUSHER Not Available Start: 09-20-2023 End: 09-20-2023 ambulatory TEN S RUSHER Not Available Start: 09-05-2023 End: 09-05-2023 ambulatory TEN S RUSHER Not Available Start: 07-18-2023 End: 07-18-2023 ambulatory TALIB GUTIERRES Not Available Start: 05-08-2023 End: 05-08-2023 ambulatory [facility] Start: 05-08-2023 End: 05-08-2023 Office outpatient visit 15 minutes Jonny Jeffries MD Work Phone: [facility] Comment on above: Primary hypertension (Primary Dx) Start: 04-25-2023 Telephone encounter Jonny oliva MD Work Phone: [facility] Start: 01-11-2022 End: 01-12-[address] JONNY JEFFRIES Facility:[facility] Start: 10-20-2021 End: 10-21-2021 ambulatory MECHELLE WOMACK Facility:[facility] Start: 05-19-2021 Encounter for preprocedural laboratory examination DR SAMANTHA FALL [facility] Start: 05-19-2021 End: 05-19-2021 ambulatory [...] &/inj major jt/bursa w/o us Cory Varma FILM PROJECTOR OPERATOR Work Phone: Start: 12-23-2022 Adult depression scr eening assessment Jonny Jeffries MD Work Phone: Start: 05-19-2021 Colonoscopy Jonny Hoyos Work Phone: Start: 12-24-2020 Mammography Jonny Hoyos Work Phone: Plan of Treatment Date Care Activity Detail Author Start: 09-20-2028 DTaP,Tdap and Td Vaccines (2 - Td or Tdap) DTaP,Tdap and Td Vaccines (2 - Td or Tdap) [facility] Start: 05-19-2026 Screening for malign ant neoplasm of colon Colonoscopy [facility] Start: 02-17-2025 Adult BMI Screening Adult BMI Screen ing [facility] Start: 02-17-2025 Tobacco Screening Tobacco Screening [facility] Start: 11-05-2024 Tobacco Screening Tobacco Screening [facility] Start: 07-16-2024 End: 07-16-2024 Patient encounter procedure 07/16/2024 2:00 PM EDT Office Visit [facility] [address] [place] [address] Talib Gutierres, FILM PROJECTOR OPERATOR [address] [place] [address] [facility] Start: 06-20-2024 End: 06-20-2024 Patient encounter procedure 06/20/2024 1:30 PM EST Office Visit [facility] [address] [place] [address] [address] [place] [id number] Jonny Jeffries MD [address] [place] [address], [address] [place] [address] [facility] Start: 04-01-2024 End: 04-01-2024 Patient encounter procedure 04/01/2024 1:15 PM EST Office Visit [facility] [address] [place] [address] Cory Varma NP [address] [facility] [address] [place] [address] [facility] Start: 03-10-2024 Tobacco Screening Tobacco Screening [facility] Start: 01-09-2024 End: 01-09-2024 Patient encounter procedure 01/09/2024 1:30 PM EDT Office Visit [facility] [address] [facility] [address] [place] [address] Talib Gutierres, FILM PROJECTOR OPERATOR [address] [place] [address] Arrived [facility] Comment on above: Arrived Start: 12-31-2023 COVID-19 Vaccine () COVID-19 Vaccine () [facility] Start: 12-31-2023 COVID-19 Vaccine ( season) COVID-19 Vaccine ( season) [facility] Start: 12-31-2023 Influenza vaccination P [facility] Start: 12-24-2023 Depression Screening Depression Scre ening [facility] Start: 12-24-2023 Fall Risk Screening Fall Risk Screen ing [facility] Start: 12-24-2023 Medicare Annual Well ness Visit Medicare Annual Wellness Visit [facility] Start: 12-30-2022 COVID-19 Vaccine ( season) COVID-19 Vaccine ( season) [facility] Start: 12-30-2022 Influenza vaccination Influenza Vacc ine [facility] Start: 11-26-2022 Adult BMI Screening Adult BMI Screen ing [facility] Start: 12-24-2021 Screening for malign ant neoplasm of breast Mammogram [facility] Start: 2017 Pneumococcal Vaccine : 65+ Years (1 of 1 - PCV) Pneumococcal Vaccine: 65+ Years (1 of 1 - PCV) [facility] Start: 2002 Administration of varicella zoster vaccine Zoster (Shingles) Vaccine (1 of 2) [facility] Start: 1970 Adult BMI Follow Up Plan Adult BMI Follow Up Plan [facility] Start: 1952 Screening for malign ant neoplasm of colon [facility] XR Knee - left 1 or 2 Views XR knee 1 or 2 views left Imaging Routine Left knee pain, unspecified chronicity 03/18/2024 1:31 PM EST [facility] Work Phone: Immunizations Immunization Date Immunization Notes Care Provider [facility] 07-11-2020 COVID-19, mRNA, LNP- S, PF, 30mcg/0.3mL Dose Jonny Jeffries MD Work Phone: [facility] 06-20-2020 COVID-19, mRNA, LNP- S, PF, 30mcg/0.3mL Dose Jonny Jeffries MD Work Phone: [facility] 09-20-2018 tetanus toxoid, redu luca diphtheria toxoid, and acellular pertussis vaccine, adsorbed Jonny Jeffries MD [facility] Payers Date Payer Category Payer Medicare (Managed Care) [facility] [id number] 2023 Medicare HMO [employer] [id number] 2023 Medicare [id number] 2019 Private Health Insurance [facility] AAR SUPPLEMENT [id number] 2019-Present [phone] [address] [place] [address] [id number] 2017 Medicare [id number] 1959 Medicare [id number] 1959 Unknown [id number] 1952 Unknown [id number] 2.16.840.1.610461.3.579 .2.593 1952 Unknown [id number] 2.16.840.1.664931.3.579 .2.593 1952 Unknown [id number] 2.16.840.1.774183.3.579 .2.593 1952 Unknown [id number] 2.16.840.1.594092.3.579 .2.593 1952 Unknown [id number] 2.16.840.1.474216.3.579 .2.593 1952 Unknown [id number] 2.16.840.1.368117.3.579 .2.593 1952 Unknown [id number] 2.16.840.1.146004.3.579 .2.593 1952 Unknown [id number] 2.16.840.1.119679.3.579 .2.593 1952 Unknown [id number] 2.16.840.1.391776.3.579 .2.593 1952 Unknown [id number] 2.16.840.1.366848.3.579 .2.1286 1952 Unknown [id number] 2.16.840.1.903759.3.579 .2.1286 1952 Unknown [id number] 2.16.840.1.701782.3.579 .2.1286 1952 Unknown [id number] 2.16.840.1.490603.3.579 .2.1259 1952 Unknown [id number] 2.16.840.1.079863.3.579 .2.1259 1952 Unknown [id number] 2.16.840.1.210234.3.579 .2.1259 1952 Unknown [id number] 2.16.840.1.135129.3.579 .2.1259 1952 Unknown [id number] 2.16.840.1.214889.3.579 .2.1259 1952 Unknown [id number] 2.16.840.1.223330.3.579 .2.1259 1952 Unknown [id number] 2.16.840.1.479655.3.579 .2.1259 1952 Unknown [id number] 2.16.840.1.939676.3.579 .2.1259 1952 Unknown [id number] 2.16.840.1.412871.3.579 .2.1259 Social History Date Type Detail Facility Start: 12-23-2022 End: 09-05-2023 Tobacco smoking status KYIS Never smoked tobacco [facility] Start: 12-23-2022 End: 09-05-2023 Tobacco use and exposure Smokeless tobacco non-user [facility] Start: 03-10-2023 End: 02-18-2024 Alcohol intake Current drinker of alcohol (finding) [facility] Start: 10-05-2021 End: 03-10-2023 Alcohol intake [facility] Start: 10-05-2021 End: 02-18-2024 Social connection and isolation panel [facility] Do you belong to any clubs or organizations such as yarsani groups, unions, fraternal or athletic groups, or school groups? No [facility] Attends Club or Organization Meetings Not on file [facility] Are you now , , , , never or living with a partner? Never [facility] How often to you hav e a drink containing alcohol? 4 or more times a week [facility] How many standard dr inks containing alcohol do you have on a typical day? 1 or 2 [facility] How often do you hav e 6 or more drinks on 1 occasion? Never [facility] How hard is it for y ou to pay for the very basics like food, housing, medical care, and heating Somewhat hard [facility] Do you feel stress - tense, restless, nervous, or anxious, or unable to sleep at night because your mind is troubled all the time - these days [OSQ] Very much [facility] Start: 10-05-2021 Education 19 [facility] Start: 09-09-2020 Alcohol Comment alot weekly [facility] Start: 1950 Sex Assigned At Not on file [facility] Start: 09-05-2023 Alcohol Comment a few bottle of wine a week [facility] Start: 1950 Sex assigned at Female [facility] Start: 07-11-2023 Gender identity Identifies as female gender (finding) [facility] Start: 07-11-2023 Sexual orientation Heterosexual (finding) [facility] Start: 12-04-2014 Sex Female (finding) [facility] Clinical Notes 04-25-2023 to 05-09-2024 Telephone Encounter - Bonnie Barbosa CMA - 05/09/2024 2:08 PM ESTTelephone Encounter - Bonnie Barbosa CMA - 05/09/2024 2:08 PM Lizz Varma NP - 04/01/2024 1:15 PM EST Note Date & Type Note Facility 05-09-2024 Miscellaneous Notes Refill request documented in this encounter [facility] 05-09-2024 Telephone encounter Note Refill request [facility] 04-01-2024 History of Present illness Narrative Images from the original note were not included. Subjective Patient ID: Frieda De La Torre is a 73 y.o. female. LT Knee 2 weeks (03/18/2024) s/p Depo medrol injection with 50 % improvement and has been doing the [employer] website exercises with some improvement Pt went to [facility] on 02/18/24 for LT lower leg [...] Notes she went on a trip to [place] Feb 22-Mar 08, and was inactive due [...] recommend an MRI documented in this encounter [facility] 03-26-2024 Miscellaneous Notes Refill request documented in this encounter [facility] 03-26-2024 Telephone encounter Note Refill request [facility] 03-18-2024 History of Present illness Narrative Associated Order(s): L Inj/Asp: L knee Post-Procedure Diagnose(s): Arthritis of left knee Images from the original note were not included. Subjective Patient ID: Frieda De La Torre is a 73 y.o. female. LT Knee No studies Pt went to [facility] on 02/18/24 for LT lower leg [...] Notes she went on a trip to [place] Feb 22-Mar 08, and was active. She purchased a cane while in [place], and this helps. LT knee pain diffuse [...] out of car. Stairs are difficult. [place]: [facility] 02/18/24, LT knee xrays 06/22/2021 noms, [...] Lateral compartment arthritis left knee. Cory Varma PRODUCT CONTROLLER Assessment/Plan Encounter Diagnoses: ICD-10-CM 1. Left knee [...] in 2 weeks. documented in this encounter [facility] 02-06-2024 Miscellaneous Notes Refill request documented in this encounter [facility] 02-06-2024 Telephone encounter Note Refill request [facility] 01-31-2024 Miscellaneous Notes Refill request documented in this encounter [facility] 01-31-2024 Telephone encounter Note Refill request [facility] 01-09-2024 History of Present illness Narrative Images [...] develop for requiring urgent evaluation. Talib Gutierres MASONRY SUPERVISOR-EXPRESSIVE MUSIC THERAPIST documented in this encounter [facility] 05-08-2023 History of Present illness Narrative Subjective [...] in the morning. documented in this encounter [facility] 04-25-2023 Miscellaneous Notes Guillermina called and said that she is unable to sleep at night. She thinks some of it is pain from her ankle. She said she has been on Ambien in the past and is wondering if she could get some Ambien? Please advise documented in this encounter [facility] 04-25-2023 Telephone encounter Note Guillermina called and said that she is unable to sleep at night. She thinks some of it is pain from her ankle. She said she has been on Ambien in the past and is wondering if she could get some Ambien? Please advise [facility] Evaluation note Diagnosis Primary hypertension- [...] AUTHOR 01/26/2022 [facility] DATE CREATED AUTHOR AUTHOR'S ORGANIZ ATION 02/22/2022 [facility] DATE CREATED AUTHOR AUTHOR'S ORGANIZ ATION 11/14/2023 [facility] DATE CREATED AUTHOR AUTHOR'S ORGANIZ ATION 02/20/2024 [facility] DATE CREATED AUTHOR AUTHOR'S ORGANIZ ATION 04/02/2024 [facility] EPIC Care Teams (unrecognized sec tion and content) Grand Scribe Relationship Specialty Start Date End Date Jonny Jeffries MD [address] [place] [address], [address] [place] [address] PCP - General Pediatrics 01/20/20 Grand Scribe Relationship Specialty Start Date End Date Jonny Jeffries MD [address] [place] [address] [address] [place] [address] PCP - General Pediatrics 01/20/20 Grand Scribe Relationship Specialty Start Date End Date Jonny Jeffries MD [address] [place] [address], [address] [place] [address] PCP - General Pediatrics 01/20/20 [facility] Nurse - [employer] 08/16/23 Grand Scribe Relationship Specialty Start Date End Date Jonny Jeffries MD [address] [place] [address], [address] [place] [address] PCP - General Pediatrics 01/20/20 [facility] Nurse - [employer] 08/16/23 Grand Scribe Relationship Specialty Start Date End Date Jonny Jeffries MD [address] [place] [address], [address] [place] [address] PCP - General Family Medicine 07/18/23 Grand Scribe Relationship Specialty Start Date End Date Jonny Jeffries MD [address] [place] [address], [address] [place] [address] PCP - General Family Medicine 07/18/23 Grand Scribe Relationship Specialty Start Date End Date Jonny Jeffries MD [address] [place] [address], [address] [place] [address] PCP - General Pediatrics 02/18/24 [facility] Nurse - [employer] 08/16/23 Grand Scribe Relationship Specialty Start Date End Date Jonny Jeffries MD [address] [place] [address], [address] [place] [address] PCP - General Family Medicine 07/18/23 Grand Scribe Relationship Specialty Start Date End Date Jonny Jeffries MD [address] [facility], [address] [place] [address] PCP - General Family Medicine 07/18/23 Grand Scribe Relationship Specialty Start Date End Date Jonny Jeffries MD [address] [facility], [address] [place] [address] PCP - General Pediatrics 02/18/24 Blanca Lujan RN [facility] Nurse - [employer] 04/10/24 Reason for [...] BE BASED ON THE PRIMARY CLINICAL RECORDS. [employer] provides no warranty or guarantee of the accuracy or completeness of information in this document.
[2024-06-05 12:42] LABS: Alanine Aminotransferase 23 U/L (14-59); Albumin Globulin Ratio 0.8; Albumin Level 3.4 g/dL (3.4-5.0); Alkaline Phosphatase 61 U/L (46-116); Anion Gap 13.1; Aspartate Amino Transferase 21 U/L (15-37); BUN Creatinine Ratio 22.7; Bilirubin Total 0.4 mg/dL (0.2-1.0); Calcium 9.1 mg/dL (8.5-10.1); Carbon Dioxide 28.6 mmol/L (21.0-32.0); Chloride 105 mmol/L (98-107); Estimated GFR (African America >60 (>=60 mL/min/1.73m^2); Estimated GFR (Non-African Ame 57 (>=60 mL/min/1.73m^2); Globulin 4.3 g/dL; Glucose 102 mg/dL (74-106); Potassium 4.7 mmol/L (3.5-5.1); Sodium 142 mmol/L (136-145); Total Protein 7.7 g/dL (6.4-8.2)
[2024-06-05 12:49] LABS: Basophils Absolute Auto 0.1 10^3/uL (0.0-0.1); Basophils Percent Auto 1.3 % (0.2-2.0); Eosinophils Absolute Auto 0.2 10^3/uL (0.0-0.7); Eosinophils Percent Auto 3.2 % (0.9-7.0); Hematocrit 41.5 % (36.0-48.0); Hemoglobin 13.2 g/dL (12.0-16.0); Immature Granulocytes Abs Auto 0.01 10^3/uL (0.00-0.03); Immature Granulocytes Pct Auto 0.2 % (0.0-0.5); Lymphocytes Absolute Auto 1.2 10^3/uL (1.2-3.8); Lymphocytes Percent Auto 21.3 % (20.5-60.0); Mean Corpuscular HGB Conc 31.8 g/dL (29.9-35.2); Mean Corpuscular Hemoglobin 28.4 pg (26.7-34.0); Mean Corpuscular Volume 89.4 fL (81.0-99.0); Mean Platelet Volume 8.9 fL (9.5-13.5); Monocytes Absolute Auto 0.6 10^3/uL (0.3-0.8); Monocytes Percent Auto 10.2 % (1.7-12.0); Neutrophils Absolute Auto 3.6 10^3/uL (1.4-6.5); Neutrophils Percent Auto 63.8 % (43.0-75.0); Platelet Count 293 10^3/uL (150-450); Red Blood Count 4.64 10^6/uL (4.20-5.40); Red Cell Distribution Width 16.1 % (11.0-15.0); White Blood Count 5.6 10^3/uL (4.0-11.0)
== END 2024-06-05 11:48 | disposition home or self-care (01) ==
LOC: LAB 11:51
PROVIDERS: PCP Radiology Diagnostic Radiology; Visit Provider Internal Medicine Rheumatology
DX: M19.90 Unspecified osteoarthritis, unspecified site (principal); Z51.81 Encounter for therapeutic drug level monitoring
CPT/HCPCS: 36415; 80053; 85025

== ENCOUNTER 2024-06-19 12:58 | Outpatient (OUT) | payer MEDICARE, SELFPAY ==
--- NOTE | 2024-06-19 13:02 | MR_ITS ---
[place] [id number] Patient Name: CARLOS ABEL MRN: [id number] date: 1950 Sex: F Assigned Patient Location: MRI Current Patient Location: MRI Accession/Order Number: [id number] Exam Date: 06/19/2024 21:58 Report Date: 06/19/2024 22:05 At the request of: CORY MEJIA ADOPTION WORKER Procedure: MR knee LT wo con MR knee LT wo con 06/19/2024 2:07 PM SIGNS AND SYMPTOMS: Internal derangement of left knee PROTOCOL: Multiplanar multisequence MR images of the left knee without IV contrast COMPARISON: None. FINDINGS: Fluid: There is a moderate joint effusion. There is an accompanying Jones cysts measuring 2.7 x 2.1 x 4.0 cm in greatest dimension.. Medial compartment: Medial meniscus: There is a horizontally oriented tear involving the posterior horn and body of the medial meniscus.. No displaced fragments. Medial collateral ligament: Intact. Medial femoral condyle cartilage: Preserved. 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 Lateral compartment: Lateral meniscus: There is a complex tear of the body and anterior horn of the lateral meniscus with a fragment displaced centrally into the joint space paralleling the posterior cruciate ligament measuring at least 1.2 cm in AP dimension by 0.8 cm in medial to lateral dimension.. Lateral collateral ligament: Intact. 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 There is accompanying subchondral edema. 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 Posterolateral corner: Popliteus tendon: Intact. Popliteofibular ligament: Intact. Proximal tibiofibular joint: Preserved. Anterior compartment: Alignment: Normal. Quadriceps tendon: Intact. Patellar tendon: Intact. Retinaculum: Medial intact. Lateral intact. 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 Trochlea: There is partial thickness chondromalacia. . Plica: None. Hoffa fat pad: There is mild edema in Hoffa's fat pad. Intercondylar compartment: Anterior cruciate ligament: Intact. Posterior cruciate ligament: Intact. Bones (other than subarticular marrow): Normal. Muscles: Normal. Vessels: Normal. Nerves: Normal. MR/MR knee LT wo con IMPRESSION: There is a complex tear of the body and anterior horn of the lateral meniscus with a fragment displaced centrally into the joint space paralleling the posterior cruciate ligament measuring at least 1.2 cm in AP dimension by 0.8 cm in medial to lateral dimension. 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 There is a horizontally oriented tear involving the posterior horn and body of the medial meniscus. There is partial thickness chondromalacia in the patellofemoral compartment. There is a joint effusion with a Jones's cyst as noted above. Impression dictated by: Asher Gorman M.D.06/19/2024 10:05 PM Dictation Location: [place] [address] Electronically authenticated by: [id number] Y Date: 06/19/2024 22:05
--- OUTSIDE RECORDS SUMMARY | 2024-06-19 13:21 | XMS_ITS | CCD ---
Author Organization [facility] ion [facility] Care Team Providers Care Bicycle Assembler Name Role Phone MECHELLE WOMACK Admitting Unavailable SHANTA, MECHELLE Overton Attending Unavailable HIESTAND, DR JONNY Pro Primary Care Unavailable Ziebclaire, DR Griffith Consulting Unavailable HIGHLANDER, MECHELLE Overton Consulting Unavailable HIESTAND, DR JONNY Pro Admitting Unavailable HIESTAND, DR JONNY Pro Attending Unavailable HIESTAND, DR JONNY Pro Primary Care Unavailable HIESTAND, DR JONNY Pro Consulting Unavailable HIESTAND, DR JNONY Pro Admitting Unavailable HIESTAND, DR JONNY Pro [...] EUFEMIA, DR SAMANTHA Stovall Admitting Unavailabl e ALYSSIAS, DR SAMANTHA Stovall Attending Unavailabl e HIESTAND, DR JONNY Pro Primary Care Unavailable TANILLIRomi, DR SAMANTHA Stovall Consulting Unavailabl e GUI ORDONEZ Consulting Unavailable MECHELLE WOMACK Admitting Unavailable MECHELLE WOMACK Attending Unavailable HIESTAND, DR JONNY Pro Primary Care Unavailable MERVIN, JONNY Pro Attending Unavailable JONNY JEFFRIES Referring Unavailable HIESTHEATHER, JONNY Pro Primary Care Unavailable HIESTHEATHER, JONNY Pro Attending Unavailable HIESTAND, JONNY Pro Referring Unavailable HIESTAND, WARREN Primary Care Unavailable JONNY JEFFRIES Primary Care Unavailable IRMA FRAIRE Attending Unavailable Jonny Jeffries MD Primary Care Provider Jonny Jeffries MD Primary Care Provider TALIB GUTIERRES Attending Unavailable TALIB GUTIERRES Referring Unavailable TEN GREENE Attending Unavailable TEN GREENE Attending Unavailable TEN GREENE Attending Unavailable TALIB GUTIERRES Attending Unavailable CORY VARMA Attending Unavailable CORY VARMA Referring Unavailable CORY VARMA Attending Unavailable Jonny Jeffries MD Primary Care Provider Allergies Allergy Classification Reported Allergen(s) Allergy Type Date of Onset Reaction(s) Facility (1 source) bee venom Drug allergy (disorder) [facility] Repository Medications Current Medications Medication Drug Class(es) Dates Sig (Normalized) Sig (Original) ibuprofen 800 mg oral tablet (20 sources) Nonsteroidal Anti-inflammatory Drug Start: 02-24-2023 End: 03-26-2024 take 1 tablet by mouth every eight hours as needed for pain ibuprofen (MOTRIN) 800 mg tablet Take 1 tablet (800 mg total) by mouth every 8 (eight) hours as needed for pain. 90 tablet 2 05/08/2023 Active multivit-min/cristina us fumarate (MULTI VITAMIN ORAL) (9 sources) multivit-min/augustus r ous fumarate (MULTI VITAMIN ORAL) Take by mouth daily. Active multivit-min/augustus aston fumarate (MULTI VITAMIN ORAL) Take by mouth daily. 0 Active Nutritional Supplements (ADULT NUTRITIONAL SUPPLEMENT + PO) (10 sources) Nutritional Supplements (ADULT NUTRITIONAL SUPPLEMENT + PO) Take by mouth UMARY Active rivaroxaban 15 mg oral tablet (6 sources) Factor Xa Inhibitor Start: 4 take 1 tablet by mouth in the morning Xarelto 15 MG tablet Take 15 mg by mouth in the morning and 15 mg before bedtime. 02/19/2024 Active sertraline 50 mg oral tablet (20 sources) Serotonin Reuptake Inhibitor Start: 0 End: 4 take 1 tablet by mouth in the morning sertraline (ZOLOFT) 50 mg tablet Take 1 tablet (50 mg total) by mouth in the morning. 90 tablet 01/31/2024 Active Completed/Discontinued Medications Medication Drug Class(es) Dates Sig (Normalized) Sig (Original) losartan potassium 50 mg oral tablet (20 sources) Angiotensin 2 Receptor Campos Start: End: take 1 tablet by mouth in the morning losartan (COZAAR) 50 mg tablet Indications: Primary hypertension take 1 tablet by mouth in the morning 30 tablet 12/25/2023 02/06/2024 Discontinued (Reorder) 1 ml methylPREDNISolone acetate 40 mg/ml injection (4 sources) Corticosteroid Start: End: methylPREDNISolone acetate (DEPO-Medrol) injection 40 mg Start: 03-18-2024 End: 03-18-2024 40 mg, Intra-articular, Once PRN Procedure, Starting on 03/18/24 at 1355, For 1 dose zolpidem tartrate 10 mg oral tablet (3 sources) gamma-Aminobutyric Acid-ergic Agonist Start: 04-27-2023 End: 11-06-2023 take 1 tablet by mouth once daily as needed for sleep zolpidem (AMBIEN) 10 mg tablet Indications: Insomnia, unspecified type Take 1 tablet (10 mg total) by mouth nightly as needed for sleep. 10 tablet 04/27/2023 11/06/2023 Discontinued (Therapy completed) Problems Active Problems Problem Classification Problem Date Documented Date Episodic/Chronic Coagulation and hemorrhagic disorders (2 sources) Spontaneous ecchymoses; Translations: [Finding related to bruising] Onset: 11-06-2023 11-06-2023 Episodic Disorders of lipid metabolism (1 source) Mixed hyperlipidemia; Translations: [MIXED HYPERLIPIDEMIA] Onset: 01-12-2022 Chronic Diverticulosis and diverticulitis (1 source) Diverticulosis of large intestine without perforation or abscess without bleeding; Translations: [DVRTCLOS LG INT NO PERF/ABSC W/O BL] Onset: 05-24-2021 Chronic Esophageal disorders (1 source) Gastro-esophageal reflux disease without esophagitis; Translations: [GERD WITHOUT ESOPHAGITIS] Onset: 04-29-2021 Chronic Essential hypertension (20 sources) Essential (primary) hypertension; Translations: [Hypertensive disorder] Onset: 10-01-2020 Chronic Gastritis and duodenitis (1 source) Unspecified chronic gastritis without bleeding; Translations: [UNS CHRONIC GASTRITIS W/O BLEEDING] Onset: 05-24-2021 Chronic Joint disorders and dislocations; trauma-related (2 sources) Derangement of left knee; Translations: [Unspecified internal derangement of left knee] 06-05-2024 Chronic Mood disorders (9 sources) Depressive disorder; Translations: [Depression] 10-01-2020 Chronic [...] UNSPECIFIED] Onset: 04-29-2021 Chronic Residual codes; unclassified (9 sources) Obstructive sleep apnea syndrome; Translations: [Obstructive [...] Date Documented Da te Episodic/Chronic Mood disorders (9 sources) Mood disorders Onset: 12-23-2022 12-23-2022 Other aftercare (1 source) Other watermelon inspector (current) drug therapy; Translations: [OTH USP CURRENT DRUG THERAPY] Onset: 05-24-2021 Episodic Other [...] [Lumbago with sciatica, right side] 01-09-2024 Episodic Varicose veins of lower extremity (1 source) Varicose ulcer of lower extremity; Translations: [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 Consent was given by the patient. [facility] Fibrin D-dimer DDU (PPP) [Ma ss/Vol]on 02-18-2024 D DIMER 997 ng/mL DDU High <255 [facility] Comment on above: Result Comment: Results [...] level. Performed By: #### [id number] #### [facility] ([id number]) [address] [place] [address], [place] [address] 36on 01-12-2022 36 Coordinator discusse d with [...] discontinuing Nsaid use for pain control. Normal [facility] ABO AND RH TYPEon 01-11-2022 ABO and Rh group Nom (Bld) ABO Rh Typing B Rh Positive Normal [facility] Comment on above: Performed By: #### A JANELLE #### [facility] [address] [address] [address] Rufino Thomas LIPID PROFILEon 01-11-2022 CHOL-HDL RATIO NORM SEE BELOW Normal [facility] Comment on above: Result Comment: 3.3 - 4.4 LOW RISK 4.4 - 7.1 AVERAGE RISK 7.1 - 11.0 MODERATE RISK >11.0 HIGH RISK Performed By: #### L IPID, CMP #### [facility] [address] [address] [address] Rufino Thomas Cholesterol [Mass/Vol] 227 mg/dL Critically high <=200 [facility] Comment on above: Performed By: #### L IPID, CMP #### [facility] [address] [address] [address] Rufino Thomas Cholesterol in HDL [Mass/Vol] 63 mg/dL Critically high 40-60 [facility] Comment on above: Performed By: #### L IPID, CMP #### [facility] [address] [address] [address] Rufino Thomas Cholesterol in LDL [Mass/Vol] 151.4 mg/dL Normal [facility] Comment on above: Performed By: #### L IPID, CMP #### [facility] [address] [place] [address] Dr. Rufino Thomas Cholesterol.total/ Cholesterol in HDL [Mass ratio] 3.6 {ratio} Normal [facility] Comment on above: Performed By: #### L IPID, CMP #### [facility] [address] [address] [address] Rufino Thomas HDL NORMAL > or = 60 mg/dl - LO W CARDIOVASCULAR RISK <40 mg/dl - HIGH CARDIOVASCULAR RISK Normal [facility] Comment on above: Performed By: #### L IPID, CMP #### [facility] [address] [address] [address] Rufino Thomas LDL CALC NORMAL SEE BELOW Normal [facility] Comment on above: Result Comment: <100 mg/dl OPTIMAL 100 - 129 mg/dl NEAR OR ABOVE OPTIMAL 130 - 159 mg/dl BORDERLINE HIGH 160 - 189 mg/dl HIGH >190 mg/dl VERY HIGH Performed By: #### L IPID, CMP #### [facility] [address] [address] [address] Rufino Thomas Triglyceride [Mass/Vol] 63 mg/dL Normal <=150 [facility] Comment on above: Performed By: #### L IPID, CMP #### [facility] [address] [place] [address] Dr. Rufino Thomas VLDL CALC 12.6 mg/dL Normal [facility] Comment on above: Performed By: #### L IPID, CMP #### [facility] [address] [place] [address] Dr. Rufino Thomas PROF 14(COMP METB)on 022 Albumin [Mass/Vol] 3.4 g/dL Normal 3.4-5.0 [facility] Comment on above: Performed By: #### L IPID, CMP #### [facility] [address] [place] [address] Dr. Rufino Thomas Albumin/Globulin [Mass ratio] 0.9 {ratio} Normal [facility] Comment on above: Performed By: #### L IPID, CMP #### [facility] [address] [place] [address] Dr. Rufino Thomas ALP [Catalytic activity/Vol] 61 U/L Normal 46-116 [facility] Comment on above: Performed By: #### L IPID, CMP #### [facility] [address] [place] [address] Dr. Rufino Thomas ALT [Catalytic activity/Vol] 41 U/L Normal 14-59 [facility] Comment on above: Performed By: #### L IPID, CMP #### [facility] [address] [place] [address] Dr. Rufino Thomas Anion gap [Moles/Vol] 9.9 mmol/L Normal [facility] Comment on above: Performed By: #### L IPID, CMP #### [facility] [address] [place] [address] Dr. Rufino Thomas AST [Catalytic activity/Vol] 30 U/L Normal 15-37 [facility] Comment on above: Performed By: #### L IPID, CMP #### [facility] [address] [place] [address] Dr. Rufino Thomas Bilirubin [Mass/Vol] 0.4 mg/dL Normal 0.2-1.0 [facility] Comment on above: Performed By: #### L IPID, CMP #### [facility] [address] [address] [address] Rufino Thomas Calcium [Mass/Vol] 8.8 mg/dL Normal 8.5-10.1 [facility] Comment on above: Performed By: #### L IPID, CMP #### [facility] [address] [address] [address] Rufino Thomas Chloride [Moles/Vol] 106 mmol/L Normal 98-107 [facility] Comment on above: Performed By: #### L IPID, CMP #### [facility] [address] [address] [address] Rufino Thomas CO2 [Moles/Vol] 27.3 mmol/L Normal 21.0-32.0 [facility] Comment on above: Performed By: #### L IPID, CMP #### [facility] [address] [place] [address] Dr. Rufino Thomas Creatinine [Mass/Vol] 0.71 mg/dL Normal 0.55-1.02 [facility] Comment on above: Performed By: #### L IPID, CMP #### [facility] [address] [address] [address] Rufino Thomas EGFR-AF EMIRATI >60 Normal >=60 [facility] Comment on above: Performed By: #### L IPID, CMP #### [facility] [address] [place] [address] Dr. Rufino Thomas EGFR-NON AF EMIRATI >60 Normal >=60 [facility] Comment on above: Performed By: #### L IPID, CMP #### [facility] [address] [address] [address] Rufino Thomas Globulin (S) [Mass/Vol] 3.9 g/dL Normal [facility] Comment on above: Performed By: #### L IPID, CMP #### [facility] [address] [place] [address] Dr. Rufino Thomas Glucose [Mass/Vol] 95 mg/dL Normal 74-106 [facility] Comment on above: Performed By: #### L IPID, CMP #### [facility] [address] [address] [address] Rufino Thomas Potassium [Moles/Vol] 4.2 mmol/L Normal 3.5-5.1 [facility] Comment on above: Performed By: #### L IPID, CMP #### [facility] [address] [address] [address] Rufino Thomas Protein [Mass/Vol] 7.3 g/dL Normal 6.4-8.2 [facility] Comment on above: Performed By: #### L IPID, CMP #### [facility] [address] [address] [address] Rufino Thomas Sodium [Moles/Vol] 139 mmol/L Normal 136-145 [facility] Comment on above: Performed By: #### L IPID, CMP #### [facility] [address] [place] [address] Dr. Rufino Thomas Urea nitrogen [Mass/Vol] 16.0 mg/dL Normal 7.0-18.0 [facility] Comment on above: Performed By: #### L IPID, CMP #### [facility] [address] [address] [address] Rufino Thomas Urea nitrogen/Creatinin e [Mass ratio] 22.5 mg/mg Normal [facility] Comment on above: Performed By: #### L IPID, CMP #### [facility] [address] [address] [address] Rufino Thomas XR ANKLE MILTON MIN [...] No acute bone abnormality. Electronically authenticated by: SILVIABLU MOJICA Date: 2021-10-20 17:48 Normal [facility] H PYLORI TISSUEon 05-19-2021 H PYL TISSUE, UREASE Negative Normal NEGATIVE [facility] Comment on above: Performed By: #### H PYLT #### [facility] [address], [place] [address] Dr. Rufino Thomas Covid-19 PCR (CVDTB)on 05-01 SARS-CoV-2 (COVID-19) RNA GIOVANNY+probe Ql (Unsp spec) Not detected Normal NOT DETECTED [facility] Comment on above: Result Comment: This test is not yet approved or cleared by the [place] FDA. When there are no FDA-approved or cleared tests available, and other criteria are met, FDA can make tests available under an emergency access mechanism called an Emergency Use Authorization (EUA). The EUA for this test is supported by the Head Of Global Strategic Partnerships of Health and Human Service's (HHS's) declaration [...] SARS-CoV-2. Performed By: #### C VDTBH #### [facility] [address], [place] [address] Dr. Rufino Thomas Covid-19 PCR (CVDTB)on SARS-CoV-2 (COVID-19) RNA GIOVANNY+probe Ql (Unsp spec) Not detected Normal NOT DETECTED [facility] Comment on above: Result Comment: This test is not yet approved or cleared by the [place] FDA. When there are no FDA-approved or cleared tests available, and other criteria are met, FDA can make tests available under an emergency access mechanism called an Emergency Use Authorization (EUA). The EUA for this test is supported by the Head Of Global Strategic Partnerships of Health and Human Service's (HHS's) declaration [...] consistent with SARS-CoV-2. Performed By: #### C [facility] #### [facility] [address] [place] [address] Dr. Rufino Thomas US ARNAV DOP LEG [...] BLANQUITA KING Date: 2021-03-06 14:58 Normal [facility] XR KNEE RT 4V or >on 021 XR KNEE RT 4V or > RIGHT KNEE FOUR VIEW S: 03/06/2021 1:44 PM EDT Clinical Data: Pain. No injury Comparison: No previous No evidence of acute fracture or dislocation. Welcome thin probable chronic lucencies proximal tibial shaft are relatively well-defined No joint effusion. Infrapatellar fat is preserved. There is some soft tissue density prominence overlying the patella IMPRESSION: 1. Some soft tissue density prominence overlying the patella. Clinical correlation is needed. 2. No evidence of acute fracture or dislocation Electronically authenticated by: CADEN JEWELL Date: 2021-03-06 14:56 Normal [facility] Vital Signs Date Time Vital Sign Value Performing Clinician Nicole alfred 11-06-2023 15:37-0400 Diastolic blood pressure 79 mm[Hg] Jon[facility] Jeffries [facility] 11-06-2023 15:37-0400 Heart rate 93 /min [facility] 11-06-2023 15:37-0400 Systolic blood pressure 114 mm[Hg] Jonny Jeffries MD [facility] 05-08-2023 14:32-0500 Diastolic blood pressure 106 mm[Hg] Jon[facility] Jeffries [facility] 05-08-2023 14:32-0500 Heart rate 88 /min Jonny Jeffries MD [facility] 05-08-2023 14:32-0500 Systolic blood pressure 173 mm[Hg] Jonny Jeffries MD Work Phone: [facility] Encounters Encounter Date Encounter Type Care Provider Facility Start: 06-03-2024 End: 06-10-2024 Telephone encounter Cory Varma BAR MACHINE OPERATOR PRODUCTION Work Phone: [facility] Comment on above: MRI Start: 05-09-2024 End: 05-09-2024 Refill Bonnie Barbosa [facility] Comment on above: Primary hypertension Start: 04-01-2024 End: 04-01-2024 Bamboo flowsheet Cory De La O Apling BAR MACHINE OPERATOR [employer]ODUCTION Work Phone: [facility] Start: 04-01-2024 End: 04-01-2024 Bamboo flowsheet Cory De La O Apling BAR MACHINE OPERATOR [employer]ODUCTION Work Phone: [facility] Start: 04-01-2024 End: 04-01-2024 ambulatory CORY VARMA Not Available Start: 04-01-2024 End: 04-01-2024 Office outpatient visit 15 minutes Cory Varma BAR MACHINE OPER[employer]ODUCTION Work Phone: [facility] Comment on above: Left knee pain, unsp ecified chronicity (Primary Dx); Arthritis of left knee Start: 03-26-2024 End: 03-26-2024 Refill Bonnie Familia PALLIATIVE CARE COORDINATOR [facility] Start: 03-18-2024 End: 03-18-2024 Bamboo flowsheet Cory Varma BAR MACHINE OPERATOR [employer]ODUCTION Work Phone: [facility] Start: 03-18-2024 End: 03-18-2024 Bamboo flowsheet Cory Varma BAR MACHINE OPERATOR [employer]ODUCTION Work Phone: [facility] Start: 03-18-2024 End: 03-18-2024 Office outpatient visit 25 minutes Cory Varma BAR MACHINE OPERATOR [employer]ODUCTION Work Phone: [facility] Comment on above: Left knee pain, unsp ecified chronicity (Primary Dx); Arthritis of left knee Start: 03-18-2024 End: 03-18-2024 ambulatory CORY VARMA Not Available Start: 02-18-2024 End: 02-18-2024 Emergency department patient visit [facility] Start: 02-06-2024 End: 02-06-2024 Refill Bonnie Familia [facility] Comment on above: Primary hypertension Start: 01-31-2024 End: 01-31-2024 Refill Bonnie Familia [facility] Start: 01-09-2024 End: 01-09-2024 Bamboo flowsheet Talib Gutierres BAR MACHINE OPERATOR [employer]ODUCTION Work Phone: [facility] Start: 01-09-2024 End: 01-09-2024 Bamboo flowsheet Talib Gutierres BAR MACHINE OPERATOR [employer]ODUCTION Work Phone: [facility] Start: 01-09-2024 End: 01-09-2024 Office outpatient visit 15 minutes Talib Gutierres BAR MACHINE OPERATOR [employer]ODUCTION Work Phone: [facility] Comment on above: Acute right-sided lo w back pain with right-sided sciatica (Primary Dx) Start: 01-09-2024 End: 01-09-2024 ambulatory TALIB GUTIERRES Not Available Start: 12-24-2023 End: 12-25-2023 Refill Jonny Jeffries MD Work Phone: [facility] Comment on above: Primary hypertension Start: 11-06-2023 End: 11-06-2023 ambulatory WARRENInocencia JEFFRIES [facility] Start: 11-06-2023 End: 11-06-2023 Office outpatient visit 15 minutes [facility] Jeffries MD [facility] Comment on above: Abnormal bruising (P rimary Dx); 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 Start: 10-30-2023 End: 10-30-2023 ambulatory TEN S DANIELHER Not Available Start: 10-26-2023 End: 10-26-2023 [facility] Comment on above: Primary hypertension Start: 09-20-2023 End: 09-20-2023 ambulatory TEN S RUSHER Not Available Start: 09-05-2023 End: 09-05-2023 ambulatory TEN S RUSHER Not Available Start: 07-18-2023 End: 07-18-2023 ambulatory TALIB GUTIERRES Not Available Start: 05-08-2023 End: 05-08-2023 ambulatory JONNY JEFFRIES [facility] Start: 05-08-2023 End: 05-08-2023 Office outpatient visit 15 minutes Jonny Jeffries MD [facility] Comment on above: Primary hypertension (Primary Dx) Start: 04-25-2023 Telephone encounter Jonny oliva MD [facility] Start: 01-11-2022 End: 01-12-[address] JONNY JEFFRIES Facility:[facility] Start: 10-20-2021 End: 10-21-2021 ambulatory MECHELLE WOMACK Facility:[facility] Start: 05-19-2021 Encounter for preprocedural laboratory examination DR SAMANTHA FALL [facility] Start: 05-19-2021 End: 05-19-[address] SAMANTHA FALL Facility:[facility] Start: 05-15-2021 End: 05-16-[address] SAMANTHA FALL Facility:[facility] Start: 05-15-2021 End: 05-16-2021 Encounter for preprocedural laboratory examination DR SAMANTHA FALL Facility:[facility] Start: 03-29-2021 ambulatory MECHELLE Brooklynn WOMACK Faci lity:[facility] Start: 03-24-2021 ambulatory MECHELLE WOMACK Faci lity:[facility] Start: 03-22-2021 ambulatory MECHELLE WOMACK Faci lity:[facility] Start: 03-06-2021 End: 03-06-[address] JONNY JEFFRIES Facility:[facility] Procedures Date Procedure Procedure Detail Performing Clinician Start: 03-18-2024 Arthrocentesis aspir &/inj major jt/bursa w/o us Cory Varma NP Work Phone: Start: 12-23-2022 Adult depression scr eening assessment Jonny Jeffries MD Work Phone: Start: 05-19-2021 Colonoscopy Jonny Hoyos Work Phone: Start: 12-24-2020 Mammography Jonny Hooys Work Phone: Plan of Treatment Date Care Activity Detail Author Start: 09-20-2028 DTaP,Tdap and Td Vaccines (2 - Td or Tdap) DTaP,Tdap and Td Vaccines (2 - Td or Tdap) [facility] Start: 05-19-2026 Screening for malign ant neoplasm of colon Colonoscopy [facility] Start: 02-17-2025 Adult BMI Screening Adult BMI Screen ing [facility] Start: 02-17-2025 Tobacco Screening Tobacco Screening [facility] Start: 11-05-2024 Tobacco Screening Tobacco Screening [facility] Start: 07-16-2024 End: 07-16-2024 Patient encounter procedure 07/16/2024 2:00 PM EDT Office Visit [facility] [address] [place] [address] Talib Gutierres, BAR MACHINE OPERATOR PRODUCTION [address] [place] [address] [facility] Start: 06-20-2024 End: 06-20-2024 Patient encounter procedure 06/20/2024 1:30 PM EST Office Visit [facility] [address] [place] [address] [address] [place] [id number] Jonny Jeffries MD [address] [place] [address], [address] [place], [place] [id number] [facility] Start: 06-04-2024 End: 06-04-2025 MR Knee - left WO contrast MR knee left wo IV contrast Imaging Routine Internal derangement of left knee Expected: 06/04/2024 (Approximate), Expires: 06/04/2025 [facility] Work Phone: Comment on above: Expected: 06/04/2024 (Approximate), Expires: 06/04/2025 Start: 05-08-2024 Tobacco Screening Tobacco Screening [facility] Start: 04-01-2024 End: 04-01-2024 Patient encounter procedure 04/01/2024 1:15 PM EST Office Visit [facility] [address] [facility] [address] [place] [id number] Cory Varma NP [address] [place] [address] [facility] Start: 03-10-2024 Tobacco Screening Tobacco Screening [facility] Start: 01-09-2024 End: 01-09-2024 Patient encounter procedure 01/09/2024 1:30 PM EDT Office Visit [facility] [address] [place] [id number] Talib Gutierres, BAR MACHINE OPERATOR PRODUCTION [address] [place] [address] Arrived [facility] Comment on above: Arrived Start: 12-31-2023 COVID-19 Vaccine () COVID-19 Vaccine () [facility] Start: 12-31-2023 COVID-19 Vaccine ( season) COVID-19 Vaccine () [facility] Start: 12-31-2023 Influenza vaccination [facility] Start: 12-24-2023 Depression Screening Depression Scre ening [facility] Start: 12-24-2023 Fall Risk Screening Fall Risk Screen ing [facility] Start: 12-24-2023 Medicare Annual Well ness Visit Medicare Annual Wellness Visit [facility] Start: 12-30-2022 COVID-19 Vaccine ( season) COVID-19 Vaccine () [facility] Start: 12-30-2022 Influenza vaccination Influenza Vacc ine [facility] Start: 11-26-2022 Adult BMI Screening Adult BMI Screen ing [facility] Start: 12-24-2021 Screening for malign ant neoplasm of breast Mammogram [facility] Start: 2017 Pneumococcal Vaccine : 65+ Years (1 of 1 - PCV) Pneumococcal Vaccine: 65+ Years (1 of 1 - PCV) [facility] Start: 2002 Administration of varicella zoster vaccine Zoster (Shingles) Vaccine (1 of 2) [facility] Start: 1970 Adult BMI Follow Up Plan Adult BMI Follow Up Plan [facility] Start: 1952 Screening for malign ant neoplasm of colon [facility] End: 11-05-2024 aPTT in Blood by Coagulation assay APTT Lab Routine Abnormal bruising 1 Occurrences starting 11/06/2023 until 11/05/2024 [facility] Comment on above: 1 Occurrences starti ng 11/06/2023 until 11/05/2024 End: 11-05-2024 CBC W Auto Differential panel - Blood CBC auto differential Lab Routine Abnormal bruising 1 Occurrences starting 11/06/2023 until 11/05/2024 [facility] Work Phone: Comment on above: 1 Occurrences starti ng 11/06/2023 until 11/05/2024 End: 11-05-2024 Protime-INR Protime-INR Lab Routine Abnormal bruising 1 Occurrences starting 11/06/2023 until 11/05/2024 [facility] Comment on above: 1 Occurrences starti ng 11/06/2023 until 11/05/2024 XR Knee - left 1 or 2 Views XR knee 1 or 2 views left Imaging Routine Left knee pain, unspecified chronicity 03/18/2024 1:31 PM EST [facility] Work Phone: Immunizations Immunization Date Immunization Notes Care Provider Fa [facility] 07-11-2020 COVID-19, mRNA, LNP- S, PF, 30mcg/0.3mL Dose Jonny Jeffries MD [facility] 06-[facility]-2020 COVID-19, mRNA, LNP- S, PF, 30mcg/0.3mL Dose Jonny Jeffries MD Work Phone: [employer] 09-20-2018 tetanus toxoid, redu luca diphtheria toxoid, and acellular pertussis vaccine, adsorbed Jonny Jeffries MD [facility]: [facility] Payers Date Payer Category Payer Medicare (Managed Care) [employer]ICARE [id number] 2023 Medicare HMO [employer] [id number] 2023 Medicare [id number] 2019 Private Health Insurance [facility] SUPPLEMENT [id number] 2019-Present [phone] [address] [place] [address] [id number] 2017 Medicare [id number] 1959 Medicare [id number] 1959 Unknown [id number] 1952 Unknown [id number] 2.16.840.1.056588.3.579 .2.593 1952 Unknown [id number] 2.16.840.1.205928.3.579 .2.593 1952 Unknown [id number] 2.16.840.1.955767.3.579 .2.593 1952 Unknown [id number] 2.16.840.1.968044.3.579 .2.593 1952 Unknown [id number] 2.16.840.1.494510.3.579 .2.593 1952 Unknown [id number] 2.16.840.1.489154.3.579 .2.593 1952 Unknown [id number] 2.16.840.1.628989.3.579 .2.593 1952 Unknown [id number] 2.16.840.1.976697.3.579 .2.593 1952 Unknown [id number] 2.16.840.1.113145.3.579 .2.593 1952 Unknown [id number] 2.16.840.1.172066.3.579 .2.1286 1952 Unknown [id number] 2.16.840.1.278259.3.579 .2.1285 1952 Unknown [id number] 2.16.840.1.219893.3.579 .2.6 1952 Unknown [id number] 2.16.840.1.017401.3.579 .2.1258 1952 Unknown [id number] 2.16.840.1.732696.3.579 .2.1258 1952 Unknown [id number] 2.16.840.1.219932.3.579 .2.1258 1952 Unknown [id number] 2.16.840.1.957760.3.579 .2.1258 1952 Unknown [id number] 2.16.840.1.648255.3.579 .2.1258 1952 Unknown [id number] 2.16.840.1.205243.3.579 .2.1258 1952 Unknown [id number] 2.16.840.1.585965.3.579 .2.1258 1952 Unknown [id number] 2.16.840.1.622892.3.579 .2.1258 1952 Unknown [id number] 2.16.840.1.705265.3.579 .2.1259 Social History Date Type Detail Facility Start: 12-23-2022 End: 09-05-2023 Tobacco smoking status AKIS Never smoked tobacco [facility] Start: 12-23-2022 End: 09-05-2023 Tobacco use and exposure Smokeless tobacco non-user [facility] Start: 11-06-2023 End: 03-18-2024 Alcoholic beverage intake Current drinker of alcohol (finding) [facility] Start: 10-05-2021 End: 03-18-2024 History of Social function [facility] Start: 10-05-2021 End: 03-18-2024 Tobacco use panel [facility] Start: 09-05-2023 Alcohol Comment a few bottle of wine a week [facility] Start: 1950 Sex assigned at Female [facility] Start: 07-11-2023 Gender identity Identifies as female gender (finding) [facility] Start: 07-11-2023 Sexual orientation Heterosexual (finding) [facility] Do you belong to any clubs or organizations such as rastafari groups, Netragons, fraJRapid or athletic groups, or school groups? No [facility] Attends Club or Organization Meetings Not on file [facility] Are you now , , , , never or living with a partner? Never [facility] How often to you hav e a drink containing alcohol? 4 or more times a week [facility] How many standard dr inks containing alcohol do you have on a typical day? 1 or 2 [facility] How often do you hav e 6 or more drinks on 1 occasion? Never [facility] How hard is it for y ou to pay for the very basics like food, housing, medical care, and heating Somewhat hard [facility] Do you feel stress - tense, restless, nervous, or anxious, or unable to sleep at night because your mind is troubled all the time - these days [OSQ] Very much [facility] Start: 10-05-2021 Education 19 [facility] Start: 09-09-2020 Alcohol Comment alot weekly [facility] Start: 1950 Sex assigned at Not on file [facility] Start: 12-04-2014 Sex Female (finding) [facility] Clinical Notes 04-25-2023 to 06-03-2024 Telephone Encounter - Laney Boss - 06/03/2024 3:39 PM ESTTelephone Encounter - Laney Boss - 06/03/2024 3:39 PM ESTTelephone Encounter - Bonnie Barbosa CMA - 05/09/2024 2:08 PM EST Note Date & Type Note Facility 06-03-2024 Telephone encounter Note Patient called asking if the order for the MRI for her LT knee can be put in? She is requesting [facility] if not [place]. [facility] 06-03-2024 Miscellaneous Notes Patient called asking if the order for the MRI for her LT knee can be put in? She is requesting [facility] if not [place]. documented in this encounter [facility] 05-09-2024 Miscellaneous Notes Refill request documented in this encounter [facility] 05-09-2024 Telephone encounter Note Refill request [facility] 04-01-2024 History of Present illness Narrative Images from the original note were not included. Subjective Patient ID: Frieda De La Torre is a 73 y.o. female. LT Knee 2 weeks (03/18/2024) s/p Depo medrol injection with 50 % improvement and has been doing the AAOS website exercises with some improvement Pt went to [facility] ER on 02/18/24 for LT lower leg [...] Notes she went on a trip to [place] Feb 22-Mar 08, and was inactive due [...] Using voltaren gel with unsure relief. [place]: [facility] ER 02/18/24, LT knee xrays 06/22/2021 noms, [...] recommend an MRI documented in this encounter [facility] 03-26-2024 Miscellaneous Notes Refill request documented in this encounter [facility] 03-26-2024 Telephone encounter Note Refill request [facility] 03-18-2024 History of Present illness Narrative Associated Order(s): L Inj/Asp: L knee Post-Procedure Diagnose(s): Arthritis of left knee Images from the original note were not included. Subjective Patient ID: Frieda De La Torre is a 73 y.o. female. LT Knee No studies Pt went to [facility] ER on 02/18/24 for LT lower leg [...] Notes she went on a trip to [place] Feb 22-Mar 08, and was active. She purchased a cane while in [place], and this helps. LT knee pain diffuse [...] out of car. Stairs are difficult. [place]: [facility] ER 02/18/24, LT knee xrays [...] Lateral compartment arthritis left knee. Cory Varma DIRECTOR HARDWARE Assessment/Plan Encounter Diagnoses: ICD-10-CM 1. Left knee [...] in 2 weeks. documented in this encounter [facility] 02-06-2024 Miscellaneous Notes Refill request documented in this encounter [facility] 02-06-2024 Telephone encounter Note Refill request [facility] 01-31-2024 Miscellaneous Notes Refill request documented in this encounter [facility] 01-31-2024 Telephone encounter Note Refill request [facility] 01-09-2024 History of Present illness Narrative [...] develop for requiring urgent evaluation. Talib Gutierres INSTITUTION DIRECTOR-MARKETING SALES CONSULTANT documented in this encounter [facility] 12-24-2023 Miscellaneous Notes Refill request documented in this encounter [facility] 12-24-2023 Telephone encounter Note Refill request [facility] 11-06-2023 History of Present illness Narrative Subjective Patient ID: Guillermina De La Torre is a 73 y.o. female. 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 She notes that she is having more bleeding that is harder to stop. She also has a varicose vein in her leg that has bled 3 or 4 times recently. Her skin is relatively thin and fragile. She has not had other unusual bruising or bleeding from other sites. No known family history of coagulopathy. She is not on blood thinners or antiplatelet medications. The following portions of the patient's history were reviewed and updated as appropriate: allergies, current medications, past family history, past medical history, past social history, and problem list. Review of Systems Objective Physical Exam Constitutional: Appearance: Normal appearance. Comments: Blood pressure normal. Skin: Comments: Skin is fragile and has many scratches and bruises on both her forearms and her lower legs. She has a healing wound on her left blake from an accident. She has some varicose veins in her legs. No skin ulcers. Neurological: Mental Status: She is alert. Assessment/Plan Will check basic lab related to coagulation although I think this is mainly fragile skin. She is considering talking to vascular surgery regarding her varicose veins. 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 documented in this encounter [facility] 10-26-2023 Miscellaneous Notes Refill request documented in this encounter [facility] 10-26-2023 Telephone encounter Note Refill request [facility] 05-08-2023 History of Present illness Narrative [...] in the morning. documented in this encounter [facility] 04-25-2023 Miscellaneous Notes Guillermina called and said that she is unable to sleep at night. She thinks some of it is pain from her ankle. She said she has been on Ambien in the past and is wondering if she could get some Ambien? Please advise documented in this encounter [facility] 04-25-2023 Telephone encounter Note Guillermina called and said that she is unable to sleep at night. She thinks some of it is pain from her ankle. She said she has been on Ambien in the past and is wondering if she could get some Ambien? Please advise [facility] Evaluation note Diagnosis Left knee pain, unspecified chronicity- Primary Arthritis of left knee [facility] Diagnosis Left knee pain, unspecified chronicity- Primary Arthritis of left knee documented in this encounter [facility]* Diagnosis Acute right-sided low back pain with right-sided sciatica- Primary documented in this encounter [facility]* Diagnosis Primary hypertension Unspecified essential hypertension [facility] Diagnosis Primary hypertension- Primary Unspecified essential hypertension [facility] Diagnosis Internal derangement of left knee- Primary documented in this encounter [facility]* Diagnosis Abnormal bruising- Primary Other symptoms involving skin and integumentary tissues 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) [facility] Diagnosis Primary hypertension Unspecified essential hypertension documented in this [facility] in this [facility] filedocumented in this encounter [facility] on filedocumented in this encounter [facility] on filedocumented in this encounter [facility] on filedocumented in this encounter [facility] Summary Purpose Family History No Family History Records FoundNo Family History Records FoundNo Family History Records FoundNo Family History Records FoundNo Family History Records Found Advance Directives No Advanced Directives Records FoundNo Advanced Directives Records FoundNo Advanced Directives Records FoundNo Advanced Directives Records FoundNo Advanced Directives Records Found Additional Source Comments INFORMATION SOURCE (unrecogn ized section and content) DATE CREATED AUTHOR 01/26/2022 [facility] DATE CREATED AUTHOR AUTHOR'S ORGANIZ ATION 02/22/2022 [facility] DATE CREATED AUTHOR AUTHOR'S ORGANIZ ATION 11/14/2023 [facility] DATE CREATED AUTHOR AUTHOR'S ORGANIZ ATION 02/20/2024 [facility] DATE CREATED AUTHOR AUTHOR'S ORGANIZ ATION 04/02/2024 [facility] EPIC Reason for Visit (unrecogniz ed section and content) Reason Comments Pain Reason Onset Date Comments Med Refill 03/26/2024 Reason Comments Follow-up Reason Onset Date Comments Med Refill 05/09/2024 Reason Comments Hypertension headaches Reason Onset Date Comments MRI 06/03/2024 Reason Onset Date Comments Med Refill 10/26/2023 Reason Comments Bleeding/Bruising Right leg a spot francisca lly bleeds if it gets picked, but all wounds bleed a lot. Reason Comments Med Refill Reason Onset Date Comments Med Refill 01/31/2024 Reason Onset Date Comments Med Refill 02/06/2024 Care Teams (unrecognized sec tion and content) Bicycle Assembler Relationship Specialty Start Date End Date Jonny Jeffries MD [address] [place] [address], [address] [place] [address] PCP - General Family Medicine 07/18/23 Bicycle Assembler Relationship Specialty Start Date End Date Jonny Jeffries MD [address] [place] [address], [address] [place] [address] PCP - General Family Medicine 07/18/23 Bicycle Assembler Relationship Specialty Start Date End Date Jonny Jeffries MD [address] [place] [address], [address] [place] [address] PCP - General Pediatrics 02/18/24 [facility] [place] 08/16/23 Bicycle Assembler Relationship Specialty Start Date End Date Jonny Jeffries MD [address] [place] [address], [address] [place] [address] PCP - General Family Medicine 07/18/23 Bicycle Assembler Relationship Specialty Start Date End Date Jonny Jeffries MD [address] [place] [address], [address] [place] [address] PCP - General Family Medicine 07/18/23 Bicycle Assembler Relationship Specialty Start Date End Date Jonny Jeffries MD [address] [place] [address], [address] [place] [address] PCP - General Pediatrics 02/18/24 Blanca Lujan, RN CCM Nurse - [employer] 04/10/24 Bicycle Assembler Relationship Specialty Start Date End Date Jonny Jeffries MD [address] [place] [address], [address] [place] [address] PCP - General Pediatrics 01/20/20 Bicycle Assembler Relationship Specialty Start Date End Date Jonny Jeffries MD [address] [place] [address], [address] [place] [address] PCP - General Pediatrics 01/20/20 Bicycle Assembler Relationship Specialty Start Date End Date Jonny Jeffries MD [address] [place] [address], [address] [place] [address] PCP - General Family Medicine 07/18/23 Bicycle Assembler Relationship Specialty Start Date End Date Jonny Jeffries MD [address] [place] [address], [address] [place] [address] PCP - General Pediatrics 01/20/20 [facility] Nurse - [employer] 08/16/23 Bicycle Assembler Relationship Specialty Start Date End Date Jonny Jeffries MD [address] [place] [address], [address] [place] [address] PCP - General Pediatrics 01/20/20 [facility] CCM Nurse - [employer] 08/16/23 Bicycle Assembler Relationship Specialty Start Date End Date Jonny Jeffries MD [address] [place] [address], [address] [place] [address] PCP - General Pediatrics 01/20/20 [facility] CCM Nurse - [employer] 08/16/23 Bicycle Assembler Relationship Specialty Start Date End Date Jonny Jeffries MD [address] [place] [address], [address] [place] [address] PCP - General Pediatrics 01/20/20 [facility] Nurse - [employer] 08/16/23 FOR RECORDS PERTAINING TO PATIENTS WHO ARE [...] BE BASED ON THE PRIMARY CLINICAL RECORDS. [facility] [employer] [facility]. provides no warranty or guarantee of the accuracy or completeness of information in this document.
== END 2024-06-19 12:59 | disposition home or self-care (01) ==
LOC: MRI 12:58
PROVIDERS: PCP Radiology Diagnostic Radiology; Visit Provider Nurse Practitioner Family
DX: M23.92 Unspecified internal derangement of left knee (principal); S83.272A Complex tear of lateral meniscus, current injury, left knee, initial encounter; S83.242A Other tear of medial meniscus, current injury, left knee, initial encounter; M25.462 Effusion, left knee; M71.22 Synovial cyst of popliteal space [Baker], left knee
CPT/HCPCS: 73721